=== PATIENT | female | born 1980 | race Caucasian/White ===

== ENCOUNTER → 2019-10-12 16:45 | Outpatient (BNVA) | payer MEDICARE, MEDICAID, SELFPAY | PROVIDERS: Family Provider Family Medicine; PCP Family Medicine; Visit Provider Social Worker | DX: F43.12 Post-traumatic stress disorder, chronic (principal); F70 Mild intellectual disabilities; F31.32 Bipolar disorder, current episode depressed, moderate; F41.1 Generalized anxiety disorder | CPT/HCPCS: 90834 ==

== ENCOUNTER → 2019-10-20 12:40 | Outpatient (BNVA) | payer MEDICARE, MEDICAID, SELFPAY | PROVIDERS: Family Provider Family Medicine; PCP Family Medicine; Visit Provider Nurse Practitioner Psychiatric/Mental Health | DX: F31.4 Bipolar disorder, current episode depressed, severe, without psychotic features (principal); F17.210 Nicotine dependence, cigarettes, uncomplicated; F43.12 Post-traumatic stress disorder, chronic; F70 Mild intellectual disabilities; G47.33 Obstructive sleep apnea (adult) (pediatric); F41.1 Generalized anxiety disorder | CPT/HCPCS: 99213 ==

== ENCOUNTER → 2019-11-02 14:58 | Outpatient (BNVA) | payer MEDICARE, MEDICAID, SELFPAY | PROVIDERS: Family Provider Family Medicine; PCP Family Medicine; Visit Provider Social Worker | DX: F43.12 Post-traumatic stress disorder, chronic (principal); F70 Mild intellectual disabilities; F31.32 Bipolar disorder, current episode depressed, moderate; F41.1 Generalized anxiety disorder | CPT/HCPCS: 90834 ==

== ENCOUNTER → 2019-11-16 16:45 | Outpatient (BNVA) | payer MEDICARE, MEDICAID, SELFPAY | PROVIDERS: Family Provider Family Medicine; PCP Family Medicine; Visit Provider Social Worker | DX: F41.1 Generalized anxiety disorder (principal); F31.32 Bipolar disorder, current episode depressed, moderate; F70 Mild intellectual disabilities; F43.12 Post-traumatic stress disorder, chronic | CPT/HCPCS: 90834 ==

== ENCOUNTER → 2019-12-14 15:44 | Outpatient (BNVA) | payer MEDICARE, MEDICAID, SELFPAY | PROVIDERS: Family Provider Family Medicine; PCP Family Medicine; Visit Provider Social Worker | DX: F43.12 Post-traumatic stress disorder, chronic (principal); F70 Mild intellectual disabilities; F31.4 Bipolar disorder, current episode depressed, severe, without psychotic features; F41.1 Generalized anxiety disorder | CPT/HCPCS: 90834 ==

== ENCOUNTER → 2019-12-29 15:18 | Outpatient (BNVA) | payer MEDICARE, MEDICAID, SELFPAY | PROVIDERS: Family Provider Family Medicine; PCP Family Medicine; Visit Provider Social Worker | DX: F41.1 Generalized anxiety disorder (principal); F70 Mild intellectual disabilities; F31.4 Bipolar disorder, current episode depressed, severe, without psychotic features; F43.12 Post-traumatic stress disorder, chronic | CPT/HCPCS: 90834 ==

== ENCOUNTER → 2020-01-12 08:23 | Outpatient (BNVA) | payer MEDICARE, MEDICAID, SELFPAY | PROVIDERS: Family Provider Family Medicine; PCP Family Medicine; Visit Provider Nurse Practitioner Psychiatric/Mental Health | DX: F31.4 Bipolar disorder, current episode depressed, severe, without psychotic features (principal); F43.12 Post-traumatic stress disorder, chronic; F70 Mild intellectual disabilities; G47.33 Obstructive sleep apnea (adult) (pediatric); F41.1 Generalized anxiety disorder; F17.210 Nicotine dependence, cigarettes, uncomplicated | CPT/HCPCS: 99213 ==

== ENCOUNTER → 2020-01-18 07:45 | Outpatient (BNVA) | payer MEDICARE, MEDICAID, SELFPAY | PROVIDERS: Family Provider Family Medicine; PCP Family Medicine; Visit Provider Social Worker | DX: F41.1 Generalized anxiety disorder (principal); F70 Mild intellectual disabilities; F31.4 Bipolar disorder, current episode depressed, severe, without psychotic features; F43.12 Post-traumatic stress disorder, chronic | CPT/HCPCS: 90834 ==

== ENCOUNTER → 2020-03-16 10:26 | Outpatient (BNVA) | payer MEDICARE, MEDICAID, SELFPAY | PROVIDERS: Family Provider Family Medicine; PCP Family Medicine; Visit Provider Social Worker | DX: F70 Mild intellectual disabilities (principal); F41.1 Generalized anxiety disorder; F43.12 Post-traumatic stress disorder, chronic; F31.4 Bipolar disorder, current episode depressed, severe, without psychotic features | CPT/HCPCS: 90834 ==

== ENCOUNTER → 2020-03-30 07:43 | Outpatient (BNVA) | payer MEDICARE, MEDICAID, SELFPAY | PROVIDERS: Family Provider Family Medicine; PCP Family Medicine; Visit Provider Nurse Practitioner Psychiatric/Mental Health | DX: F31.4 Bipolar disorder, current episode depressed, severe, without psychotic features (principal); F43.12 Post-traumatic stress disorder, chronic; F70 Mild intellectual disabilities; G47.33 Obstructive sleep apnea (adult) (pediatric); F41.1 Generalized anxiety disorder; F17.210 Nicotine dependence, cigarettes, uncomplicated | CPT/HCPCS: 99213 ==

== ENCOUNTER 2020-04-05 09:50 | Outpatient (CLI) | payer MEDICARE, MEDICAID, SELFPAY ==
--- NOTE | 2020-04-05 10:01 | MM_ITS ---
WS: [id number] BILATERAL DIGITAL SCREENING MAMMOGRAPHY WITH CAD CLINICAL INFORMATION: SCREENING HISTORY: Screening mammogram. No current complaints. COMPARISON: TECHNIQUE: Bilateral CC and MLO views. FINDINGS: The breasts are composed of heterogeneous fibroglandular density tissue, which can limit the detectio n of small underlying mass lesions. No suspicious mass, asymmetry, calcifications, or architectural d istortion. No evidence of malignancy. Stable bilateral well-circumscribed nodular densities and a few intramammary lymph nodes. MM/[id number] IMPRESSION: BI-RADS: 2-Benign FOLLOW UP: 1 Year Follow-up Recommend return to annual screening mammography.
== END 2020-04-05 09:51 | disposition home or self-care (01) ==
LOC: RADSHAW 09:59
PROVIDERS: PCP Family Medicine; Visit Provider Family Medicine
DX: Z12.31 Encounter for screening mammogram for malignant neoplasm of breast (principal)
CPT/HCPCS: 77067

== ENCOUNTER → 2020-06-01 07:33 | Outpatient (BNVA) | payer MEDICARE, MEDICAID, SELFPAY | PROVIDERS: PCP Family Medicine; Visit Provider Nurse Practitioner Psychiatric/Mental Health | DX: F31.4 Bipolar disorder, current episode depressed, severe, without psychotic features (principal); F43.12 Post-traumatic stress disorder, chronic; F70 Mild intellectual disabilities; G47.33 Obstructive sleep apnea (adult) (pediatric); F41.1 Generalized anxiety disorder | CPT/HCPCS: 99213 ==

== ENCOUNTER 2020-08-18 15:44 | Inpatient (IN) | payer MEDICARE, MEDICAID, SELFPAY ==
[2020-08-18 15:44] VITALS: BP 136/76; PULSE 72; RESP 16; TEMP 36.2; O2SAT 100; BMI 25.3
--- NOTE | 2020-08-18 16:15 | ED_ITS ---
HPI - Psych General: Chief Complaint: Psychiatric Symptoms Stated Complaint: SI Time Seen by Provider: 08/18/20 15:58 History of Present Illness: HPI Narrative: This patient is a 40-year-old female who lives in a supervised home with 2 roommates. She is here with a staff member today. Last night she made statements about watching to harm herself and had a pair of scissors hidden in her sleeve. She did cut her arm a small amount last night. The staff kept her on a 24-hour suicide watch but today she is continuing to voice suicidal thoughts. She is very sad. She has attempted suicide in the past by hanging herself. She denies any other medical history or recent illnesses. She has been compliant with her medications. MD complaint: suicidal ideation and feels depressed Onset (ago): unknown Duration: constant History of same: Yes Relieving factors: none Exacerbating factors: none Associated psychiatric symptoms: depression and suicidal ideation Associated symptoms: Reports depression and suicidal ideation Review of Systems General: Reports: 10 or more systems reviewed and unremarkable except in HPI and below Const: Denies: fever(s), chills, fatigue or malaise Card: Denies: chest pain Resp: Denies: dyspnea, productive cough or non-productive cough GI: Denies: nausea or vomiting : Denies: difficulty voiding Neuro: Denies: headache(s) Psych: Reports: depression, loss of interest and suicidal ideation [facility] ED PFSH: Medical History Bipolar disorder, current episode depressed, severe, without psychotic features Chronic post-traumatic stress disorder Cigarette nicotine dependence Generalized anxiety disorder Mild intellectual disabilities Obstructive sleep apnea Physical Exam Const: COMMON NORMALS: no acute distress, patient oriented x3, no limitations and alert GENERAL APPEARANCE: cooperative and comfortable HENMT: HEAD & SCALP: normal to inspection FACE & SINUS: normal facial exam Eye: GENERAL EYE: appearance normal, both eyes and all related structures Neck/C-Spine: COMMON NORMALS: supple, no meningeal signs and no JVD Chest: COMMONS NORMALS: normal inspection of the chest Resp: COMMON NORMALS: normal respiratory effort, No use of accessory muscles and clear to auscultation bilaterally AUSCULTATION: clear to auscultation bilaterally Cardio: COMMON NORMALS: no JVD, regular rate, regular rhythm and No murmurs present (Cardio) RATE: regular rate RHYTHM: regular rhythm GI: COMMON NORMALS: Normal to inspection, nondistended, normoactive bowel sounds present, Soft to palpation and non-tender INSPECTION: Yes normal to inspection AUSCULTATION: Yes normoactive bowel sounds PALPATION: Yes Soft to palpation Back/Pelvis: COMMON NORMALS: thoracic and lumbar spine normal to inspection Extremity: COMMON NORMALS: normal to inspection Neuro: COMMON NORMALS: patient oriented x3, moves all extremities, no focal motor deficits and no sensory deficits noted SENSORIUM/ORIENTATION: Yes alert MENINGEAL SIGNS: Yes no meningeal signs Psych: COMMON NORMALS: mental status grossly normal and cooperative ACTIVITY/MOTOR BEHAVIOR: Yes psychomotor slowing SPEECH: Yes minimal and Yes soft MOOD & AFFECT: Yes depressed mood Skin: COMMON NORMALS: no rashes or lesions noted and turgor normal GENERAL SKIN EXAM: no rashes or lesions noted and turgor normal MDM - Psych Lab Data: Labs: Lab Results 08/18/20 08/18/20 08/18/20 Range/Units 16:09 16:09 16:22 WBC 11.2 H (4.0-10.0) 10^3/ uL RBC 4.27 (4.1-5.3) 10^6/u L Hgb 10.6 L (11.5-15.3) g/dL Hct 36.0 L (37.0-47.0) % MCV 84.3 (81-99) fL MCH 24.8 L (28.0-34.0) pg MCHC 29.4 L (30.0-36.0) g/dL RDW 17.1 H (12.1-15.1) % Plt Count 483 H (130-400) 10^3/c mm MPV 10.6 H (7.4-10.4) fL Neut % (Auto) 58.8 % Lymph % (Auto) 31.0 % [place] % (Auto) 6.3 % Eos % (Auto) 2.9 % Baso % (Auto) 0.8 % Neut # (Auto) 6.59 (1.8-7.7) 10^3/u L Lymph # (Auto) 3.5 (0.8-4.8) 10^3/u L [place] # (Auto) 0.7 (0.2-0.9) 10^3/u L Eos # (Auto) 0.3 (0.0-0.8) 10^3/u L Baso # (Auto) 0.1 (0.0-0.1) 10^3/u L Nucleated RBC % (a uto) 0 % Nucleated RBCs # 0.0 /100WBC Sodium (136-145) mmol/L Potassium (3.5-5.1) mmol/L Chloride (98-107) mmol/L Carbon Dioxide (22-29) mmol/L Anion Gap (5-19) BUN (6-20) mg/dL Creatinine (0.5-0.9) mg/dL GFR Calculation (90-130) mL/min Glucose (65-115) mg/dL Calculated Osmolal ity (285-295) mOsm/k g Calcium (8.5-10.5) mg/dL Total Bilirubin (0.15-1.2) mg/dL AST (0-32) U/L ALT (0-33) U/L Alkaline Phosphata se (35-105) IU/L Total Protein (6.6-8.7) g/dL Albumin (3.5-5.2) g/dL Globulin (1.3-4.6) g/dL HCG, Qual Negative (Negative) Salicylates (3-10) mg/dL Urine Opiates Scre en Negative (Negative) ng/mL Acetaminophen (10-30) ug/mL Ur Barbiturates Sc reen Negative (Negative) ng/mL Ur Phencyclidine S crn Negative (Negative) ng/mL Ur Amphetamines Sc reen Negative (Negative) ng/mL U Benzodiazepines Scrn Negative (Negative) ng/mL Urine Cocaine Scre en Negative (Negative) ng/mL U Marijuana (THC) Screen Negative (Negative) ng/mL Ethyl Alcohol (0-10) mg/dL 08/18/ Range/Units 16:22 WBC (4.0-10.0) 10^3/ uL RBC (4.1-5.3) 10^6/u L Hgb (11.5-15.3) g/dL Hct (37.0-47.0) % MCV (81-99) fL MCH (28.0-34.0) pg MCHC (30.0-36.0) g/dL RDW (12.1-15.1) % Plt Count (130-400) 10^3/c mm MPV (7.4-10.4) fL Neut % (Auto) % Lymph % (Auto) % [place] % (Auto) % Eos % (Auto) % Baso % (Auto) % Neut # (Auto) (1.8-7.7) 10^3/u L Lymph # (Auto) (0.8-4.8) 10^3/u L [place] # (Auto) (0.2-0.9) 10^3/u L Eos # (Auto) (0.0-0.8) 10^3/u L Baso # (Auto) (0.0-0.1) 10^3/u L Nucleated RBC % (a uto) % Nucleated RBCs # /100WBC Sodium 136 (136-145) mmol/L Potassium 3.8 (3.5-5.1) mmol/L Chloride 104 (98-107) mmol/L Carbon Dioxide 24 (22-29) mmol/L Anion Gap 11.8 (5-19) BUN 8 (6-20) mg/dL Creatinine 0.8 (0.5-0.9) mg/dL GFR Calculation 78.7 L (90-130) mL/min Glucose 103 (65-115) mg/dL Calculated Osmolal ity 281 L (285-295) mOsm/k g Calcium 9.4 (8.5-10.5) mg/dL Total Bilirubin 0.2 (0.15-1.2) mg/dL AST 14 (0-32) U/L ALT 11 (0-33) U/L Alkaline Phosphata se 181 H (35-105) IU/L Total Protein 6.8 (6.6-8.7) g/dL Albumin 4.4 (3.5-5.2) g/dL Globulin 2.4 (1.3-4.6) g/dL HCG, Qual (Negative) Salicylates 0.7 L (3-10) mg/dL Urine Opiates Scre en (Negative) ng/mL Acetaminophen < 5.0 L (10-30) ug/mL Ur Barbiturates Sc reen (Negative) ng/mL Ur Phencyclidine S crn (Negative) ng/mL Ur Amphetamines Sc reen (Negative) ng/mL U Benzodiazepines Scrn (Negative) ng/mL Urine Cocaine Scre en (Negative) ng/mL U Marijuana (THC) Screen (Negative) ng/mL Ethyl Alcohol < 10 (0-10) mg/dL Discharge Plan Discharge Admit Provider: Bladimir Marie Condition: Stable Coding Level of Care Code ED Senior Director Of Strategy for [employer] Fwd Exam Comprehensive
[2020-08-18] MEDS: LORazepam 1 mg Tablet PO (16:35)
[2020-08-18 16:38] LABS: Basophils # 0.1 10^3/uL (0.0-0.1); Basophils % 0.8 %; Eosinophils # 0.3 10^3/uL (0.0-0.8); Eosinophils % 2.9 %; Hemoglobin 10.6 g/dL (11.5-15.3); Lymphocytes # 3.5 10^3/uL (0.8-4.8); Mean Corpuscular HGB Conc 29.4 g/dL (30.0-36.0); Mean Corpuscular Hemoglobin 24.8 pg (28.0-34.0); Mean Corpuscular Volume 84.3 fL (81-99); Mean Platelet Volume 10.6 fL (7.4-10.4); Monocytes # 0.7 10^3/uL (0.2-0.9); Monocytes % 6.3 %; Neutrophils # 6.59 10^3/uL (1.8-7.7); Neutrophils % 58.8 %; Nucleated Red Blood Cells % 0 %; Platelet Count 483 10^3/cmm (130-400); Red Blood Count 4.27 10^6/uL (4.1-5.3); Red Cell Distribution Width 17.1 % (12.1-15.1); White Blood Count 11.2 10^3/uL (4.0-10.0)
[2020-08-18 16:49] LABS: Alanine Aminotransferase 11 U/L (0-33); Albumin Level 4.4 g/dL (3.5-5.2); Alkaline Phosphatase 181 IU/L (35-105); Anion Gap 11.8 (5-19); Aspartate Amino Transferase 14 U/L (0-32); Blood Urea Nitrogen 8 mg/dL (6-20); Calcium 9.4 mg/dL (8.5-10.5); Carbon Dioxide 24 mmol/L (22-29); Chloride 104 mmol/L (98-107); Globulin 2.4 g/dL (1.3-4.6); Glomerular Filtration Rate 78.7 mL/min (90-130); Glucose 103 mg/dL (65-115); Osmolality Calculated 281 mOsm/kg (285-295); Potassium 3.8 mmol/L (3.5-5.1); Salicylate 0.7 mg/dL (3-10); Sodium 136 mmol/L (136-145); Total Bilirubin 0.2 mg/dL (0.15-1.2); Total Protein 6.8 g/dL (6.6-8.7)
[2020-08-18 16:52] LABS: Acetaminophen < 5.0 ug/mL (10-30); Alcohol Level < 10 mg/dL (0-10)
[2020-08-18 16:58] LABS: Amphetamines Screen Urine Negative (Negative); Barbiturates Screen Urine Negative (Negative); Benzodiazepines Screen Urine Negative (Negative); Cocaine Screen Urine Negative (Negative); Opiate Screen Urine Negative (Negative); PCP Screen Urine Negative (Negative); THC Screen Urine Negative (Negative)
[2020-08-18 17:07] LABS: HCG Qualitative Urine. Negative (Negative)
--- NOTE | 2020-08-18 19:00 | PC.NURSE ---
Pt ambulating in room and refuses to wear mask. Attempt to review with pt the hospital policy, he states I don't have too . Notified Charge nurse
--- NOTE | 2020-08-18 19:20 | PC.NURSE ---
Caregiver at bedside. Pt aware of admission, appears to be resting with eyes closed.
[2020-08-18 19:50] VITALS: BP 128/77; PULSE 69; RESP 18; TEMP 37.1; O2SAT 97
[2020-08-18 20:28] VITALS: BP 132/77; PULSE 67; RESP 18; TEMP 36.7; O2SAT 99
[2020-08-18 20:55] VITALS: BP 132/77; PULSE 67; RESP 18; TEMP 36.7; O2SAT 99
--- NOTE | 2020-08-18 21:13 | PC.NURSE ---
Skin assessment revealed surgical scars both knees. The patient has a 1/4 inch self inflicted, superficial cut to anterior left arm.
[2020-08-18] MEDS: hyDROXYzine 25 mg Capsule 50 MG PO (21:26)
[2020-08-18] MEDS: trazodone 50 mg Tablet PO (21:27)
[2020-08-18 23:12] LABS: Lithium 0.7 mmol/L (0.6-1.2)
[2020-08-19 06:00] VITALS: BP 105/65; PULSE 74; RESP 15; TEMP 36.4; O2SAT 98
[2020-08-19] MEDS: loratadine 10 mg Tablet PO (08:03)
[2020-08-19] MEDS: pantoprazole DR 40 mg Tablet PO (08:03)
[2020-08-19] MEDS: lithium carbonate 300 mg Capsule PO (08:03)
[2020-08-19] MEDS: calcium carb-vit d 500mg-200unit 1 Tablet 1 EACH PO (09:11)
[2020-08-19] MEDS: sertraline 100 mg Tablet 200 MG PO (09:12)
[2020-08-19] MEDS: nicotine 21 mg Patch 1 PATCH TRANSDERMA (09:13)
[2020-08-19 13:34] VITALS: BP 107/57; PULSE 79; RESP 18; TEMP 37.2; O2SAT 94
--- NOTE | 2020-08-19 14:34 | PM.NHP ---
Providers/Chief Complaint Admitting Physician: Bladimir Marie MD Primary Care Provider: Kendrick Dillon Chief Complaint: SI HPI NPU History of Present Illness Celia Ghosh is a 40 year old female who presented to the emergency room the following report: Chief Complaint: Psychiatric Symptoms Stated Complaint: SI Time Seen by Provider: 08/18/20 15:58 History of Present Illness: HPI Narrative: This patient is a 40-year-old female who lives in a supervised home with 2 roommates. She is here with a staff member today. Last night she made statements about watching to harm herself and had a pair of scissors hidden in her sleeve. She did cut her arm a small amount last night. The staff kept her on a 24-hour suicide watch but today she is continuing to voice suicidal thoughts. She is very sad. She has attempted suicide in the past by hanging herself. She denies any other medical history or recent illnesses. She has been compliant with her medications. MD complaint: suicidal ideation and feels depressed Onset (ago): unknown Duration: constant History of same: Yes Relieving factors: none Exacerbating factors: none Associated psychiatric symptoms: depression and suicidal ideation Associated symptoms: Reports depression and suicidal ideation. She was admitted to the neuropsychiatric in the fourth and treatment of those issues. Celia presents today well-known to the [facility] system through outpatient treatment going back to 2008 at [facility] the most recent med management visit in March and recent therapy follow-ups in late June. She endorsed starting inpatient hospitalizations after in her childhood and she has had 7 or 8 here at [facility]. She reports that she cannot identify with the nidus of her outburst/behaviors were yesterday she does knows that she started feeling internal angst/pain and she wanted to have a physical manifestation of the pain. So according to her the behavior with the scissors was not a suicide attempt and she denies suicidality she reports feeling a drive to self-harm. She has been living at the [facility] for a long time. Her last visitation here was in 2016 and she was living there then. She also has had hospitalizations at [facility]. She was smoking about a pack of cigarettes a day. Denies regular alcohol marijuana or any other illicit drugs. Denies ever going to a rehab or having a DUI. She endorsed things getting crazy. That she was having racing thoughts. That her thoughts were not making sense. And that when she had the thought to create some physical pain and got the scissors. She has a history of SIB. Is unclear if she has any actual suicide attempts based on her description of past suicide attempt in 2013. We agreed to review her medications. There were no significant issues raised by Celia at her 06/01 med management visit, or her 07/27/2020 counseling session. Psychiatric history: As above. This huizar her at least 10th or more hospitalization. She lives in [facility] and gets her treatment at [facility]. Substance abuse history: As above. Family history: She was adopted and denies having a great memory but which she does not know is that her mother had significant problems with drugs and likely mental health issues. Developmental history: She reports that her mom did drugs during her and she was born premature. She reports that she did have developmental delays. She reports that when she went to school she did need speech therapy, learning support emotional support and special education services. Psychosocial history: She is not sure of her mother and father were together when she was born exactly She reports being adopted when she was 4, and she was in the foster care system prior to that and her memories of her youth her fairly limited. She does report being adopted to a family with 2 boys that were also adopted and her half sister. She reports that her childhood was okay. She has no recollection of any emotional physical or sexual abuse. She graduated from high school. She endorses being a heterosexual and her longest relationship was 3 years. She never been , she is never had children, she is never been in the , and denies any significant protestant belief system. She works at [employer] in [place]. She lives in [facility]. Legal history: She denies any history of senior care or legal peril. Medical history: She endorses having GERD and sleep apnea Meds NPU Home Medications Medication Instructions Recorded Confirmed Last Taken Type bimatoprost 0.01 % eye drops 1 drop OPHTHALMIC (EYE) BEDTIME 10/20/19 08/18/20 08/17/20 History bismuth subsalicylate 262 mg/15 mL 524 mg PO ONCE PRN 10/20/19 08/18/20 Unknown History oral suspension calcium carbonate 500 mg calcium 500 mg PO DAILY tab 10/20/19 08/18/20 08/18/20 History (1,250 mg) tablet carbamide peroxide 6.5 % ear drops 10 drop EAR-BOTH BID PRN ml 10/20/19 08/18/20 Unknown History dextromethorphan polistirex 30 10 ml PO QID PRN 10/20/19 08/18/20 Unknown History mg/5 mL oral susp ext.release 12hr loratadine 10 mg tablet 10 mg PO QDAY 10/20/19 08/18/20 08/18/20 History omeprazole 40 mg capsule,delayed 40 mg PO DAILY 10/20/19 08/18/20 08/17/20 History release piroxicam 20 mg capsule 20 mg PO QDAY PRN 10/20/19 08/18/20 Unknown History clonazepam 0.5 mg tablet 0.5 mg PO DAILY PRN #30 tab 01/13/20 08/18/20 Unknown Rx lithium carbonate 300 mg tablet 900 mg PO DIRECTED #270 tab 06/01/20 08/18/20 08/18/20 Rx Abilify 10 mg PO BEDTIME 08/18/20 08/18/20 08/17/20 History Lamictal 200 mg PO BEDTIME 08/18/20 08/18/20 08/17/20 History Zoloft 200 mg PO DAILY 08/18/20 08/18/20 08/18/20 History acetaminophen [Tylenol] 325 mg PO Q4H PRN 08/18/20 08/18/20 Unknown History cyproheptadine 4 mg PO BEDTIME 08/18/20 08/18/20 08/17/20 History omeprazole 20 mg PO DAILY 08/18/20 08/19/20 08/18/20 History brimonidine-timolol [Combigan] 1 drp OPHTHALMIC (EYE) BID 08/19/20 08/19/20 08/19/20 History Allergies Allergy/AdvReac Type Severity Reaction Status Date / Time ziprasidone [From Geodon] Allergy Unknown Unknown Verified 08/19/20 20:33 divalproex sodium Allergy Unknown Verified 08/18/20 16:37 [From Depakote] PFSH NPU PFS: Medical History Bipolar disorder, current episode depressed, severe, without psychotic features Chronic post-traumatic stress disorder Cigarette nicotine dependence Generalized anxiety disorder Mild intellectual disabilities Obstructive sleep apnea Mental Status Exam MSE Comments: This is a short overweight white female in hospital scrubs with adequate grooming and eye contact. No abnormal movements except for sicca psychomotor retardation. Cooperative with exam in mild distress. Speech was decreased rate and volume. Mood described as depressed affect subdued. Thought process organized. Thought content: Patient denied suicidal or homicidal ideations, there were no delusions reported or noted, she denied any auditory or visual donations. Attention and concentration were intact and memory appeared mostly reliable but none were formally tested. She is alert and oriented x3. Insight and judgment are impaired, impulse control is impaired, intellectual ability is impaired. Vitals/I&O/Wt Last Vital Signs Temp 98.9 F 08/19/20 22:00 Pulse 78 08/19/20 22:00 Resp 17 08/19/20 22:00 BP 112/79 08/19/20 22:00 Pulse Ox 97 08/19/20 22:00 Weight last 48 hrs Weight 53.07 kg Data NPU : 08/18/20 16:22 08/18/20 16:22 A&P Assessment and plan (1) Generalized anxiety disorder: Status: Chronic (2) Mild intellectual disabilities: Status: Chronic (3) Chronic post-traumatic stress disorder: Status: Chronic (4) Bipolar disorder, current episode depressed, severe, without psychotic features: Status: Chronic (5) Cigarette nicotine dependence: Status: Chronic Qualifiers: Substance use status: uncomplicated Qualified Code(s): F17.210 - Nicotine dependence, cigarettes, uncomplicated (6) Obstructive sleep apnea: Status: Acute Additional A&P Information This is a 40-year-old white female with a long history of trauma, bipolar disorder, anxiety and possible cluster B traits who presents after an episode of SIB. 1. Continue current medication. We will increase her lithium to 6 amenability if the lithium level comes back in the morning as in the range it was most recently at 0.7. If it is near to the previous range of 0.9 then we will look to raise the Lamictal to adding a morning dose. 2. Continue every 15 minute checks for safety. 3. Encourage individual, group and milieu therapy. 4. We will work with guardian to make appropriate changes. Involuntary Hold Information 96 Hour Hold: 96 Hour Involuntary Admission: No Attestations NPU Medical Necessity Statement*: Inpatient hospitalization is medically necessary and the clinically appropriate intervention at this time. We will monitor medications and make changes as indicated. She will be in the hospital for over 2 midnights. Likely length of stay 2-4 days. Coding Level of Care Code Acute Tool And Die Repair for g Fwd Diagnoses Generalized anxiety disorder F41.1 Mild intellectual disabilities F70 Chronic post-traumatic stress disorder F43.12 Bipolar disorder, current episode depressed, severe, without psychotic features F31.4 Cigarette nicotine dependence F17.210 Substance use status: uncomplicated Obstructive sleep apnea G47.33
[2020-08-19] MEDS: ARIPiprazole 10 mg Tablet PO (21:30)
[2020-08-19] MEDS: lamoTRIgine 100 mg Tablet 200 MG PO (21:30)
[2020-08-19] MEDS: lithium carbonate 300 mg Capsule 600 MG PO (21:30)
[2020-08-19 22:00] VITALS: BP 112/79; PULSE 78; RESP 17; TEMP 37.2; O2SAT 97
[2020-08-19] MEDS: BRINZOLAMIDE 1% 1 DROP EYE-BOTH (22:07)
[2020-08-19] MEDS: NON-FORMULARY MEDICATION (Brimonidine-Timolol [Combigan] 0.2-0.5 % Drops) 1 EACH EYE-BOTH (22:20)
[2020-08-20 06:00] VITALS: BP 105/69; PULSE 79; RESP 16; TEMP 37; O2SAT 96
[2020-08-20] MEDS: NON-FORMULARY MEDICATION (Brimonidine-Timolol [Combigan] 0.2-0.5 % Drops) 1 EACH EYE-BOTH ×2 (08:01→18:14)
[2020-08-20] MEDS: calcium carb-vit d 500mg-200unit 1 Tablet 1 EACH PO (08:01)
[2020-08-20] MEDS: loratadine 10 mg Tablet PO (08:01)
[2020-08-20] MEDS: sertraline 100 mg Tablet 200 MG PO (08:01)
[2020-08-20] MEDS: pantoprazole DR 40 mg Tablet PO (08:01)
[2020-08-20] MEDS: BRINZOLAMIDE 1% 1 DROP EYE-BOTH ×2 (08:02→18:14)
[2020-08-20 10:15] LABS: Lithium 0.8 mmol/L (0.6-1.2)
[2020-08-20] MEDS: lithium carbonate 300 mg Capsule 600 MG PO ×2 (10:20→20:51)
--- NOTE | 2020-08-20 11:28 | PC.NURSE ---
PT NOTE; PER DR. JOHNSON REQUEST NOTIFIED CLIENTS GUARDIAN SHIRLEY COLES OF CLIENTS PLANNED DISCHARGE ON SATURDAY. SPOKE WITH HIM ABOUT CHANGES IN CLIENTS CARE (MED ADJUSTMENTS). INFORMED HIM THAT CLIENT HAS BEEN STABLE ON THE UNIT AND NO LONGER ENDORSES SUICIDAL THOUGHTS. ALSO INFORMED HIM THAT I HAVE SPOKEN WITH CLIENTS ISL AND THEY ARE IN AGREEMENT WITH THIS PLAN. GUARDIAN STATES THAT HE IS IN AGREEMENT WITH THIS PLAN WELL.
[2020-08-20 13:29] VITALS: BP 113/77; PULSE 78; RESP 18; TEMP 37.1
--- NOTE | 2020-08-20 15:11 | P.PN_ITS ---
Subjective NPU Subjective: Interval history: Celia presents today reporting that she is feeling better and denying any major issues. On the top of her issues of anxiety and concern is worries about not getting back home so that she can be at work as scheduled on Saturday. The treatment team reached out to her providers to talk about the possibility of discharge tomorrow versus early Saturday morning with tomorrow being her desire discharge and her dakota for safety. She was eating fine and sleeping better and tolerating the medication change. Mental Status Exam MSE Comments: This is a short overweight white female in hospital scrubs with adequate grooming and eye contact. No abnormal movements except for mild psychomotor retardation. Cooperative with exam in no acute distress. Speech was decreased rate and volume. Mood described as better, affect subdued. Thought process organized. Thought content: Patient denied suicidal or homicidal ideations, there were no delusions reported or noted, she denied any auditory or visual donations. Attention and concentration were intact and memory appeared mostly reliable but none were formally tested. She is alert and oriented x3. Insight and judgment are limited, but improving, impulse control is limited, intellectual ability is impaired. Vitals/I&O/Wt Last Vital Signs Temp 98.3 F 08/20/20 20:59 Pulse 76 08/20/20 20:59 Resp 15 08/20/20 20:59 BP 106/73 08/20/20 20:59 Pulse Ox 96 08/20/20 20:59 Data NPU : 08/18/20 16:22 08/18/20 16:22 A&P Additional A&P Information (1) Generalized anxiety disorder: (2) Mild intellectual disabilities: (3) Chronic post-traumatic stress disorder: (4) Bipolar disorder, current episode depressed, severe, without psychotic features: (5) Cigarette nicotine dependence: (6) Obstructive sleep apnea: This is a 40-year-old white female with a long history of trauma, bipolar disorder, anxiety and possible cluster B traits who presents after an episode of SIB. 1. Continue current medication. Patient is tolerating the increase to 600 mg p.o. twice daily of her lithium. 2. Continue every 15 minute checks for safety. 3. Encourage individual, group and milieu therapy. 4. We will work with guardian to make appropriate changes. 5. Tentative plan for discharge tomorrow. Involuntary Hold Information 96 Hour Hold: 96 Hour Involuntary Admission: No Attestations NPU Medical Necessity Statement*: Inpatient hospitalization is medically necessary and the clinically appropriate intervention at this time. We will monitor medications and make changes as indicated. Likely length of stay 1-3 days. Coding Level of Care Code Acute Machine Setup Operator for Tonia Robbins
[2020-08-20] MEDS: lamoTRIgine 100 mg Tablet 200 MG PO (20:50)
[2020-08-20] MEDS: ARIPiprazole 10 mg Tablet PO (20:50)
[2020-08-20 20:59] VITALS: BP 106/73; PULSE 76; RESP 15; TEMP 36.8; O2SAT 96
[2020-08-21 06:00] VITALS: BP 115/72; PULSE 89; RESP 16; TEMP 36.8; O2SAT 97
[2020-08-21] MEDS: lithium carbonate 300 mg Capsule 600 MG PO (08:14)
[2020-08-21] MEDS: pantoprazole DR 40 mg Tablet PO (08:14)
[2020-08-21] MEDS: loratadine 10 mg Tablet PO (08:14)
[2020-08-21] MEDS: calcium carb-vit d 500mg-200unit 1 Tablet 1 EACH PO (08:14)
[2020-08-21] MEDS: sertraline 100 mg Tablet 200 MG PO (08:15)
[2020-08-21] MEDS: BRINZOLAMIDE 1% 1 DROP EYE-BOTH (08:15)
[2020-08-21] MEDS: NON-FORMULARY MEDICATION (Brimonidine-Timolol [Combigan] 0.2-0.5 % Drops) 1 EACH EYE-BOTH (08:15)
--- NOTE | 2020-08-21 10:31 | PM.NDC ---
Diagnoses at Discharge Discharge Diagnosis (1) Generalized anxiety disorder: Status: Chronic (2) Mild intellectual disabilities: Status: Chronic (3) Chronic post-traumatic stress disorder: Status: Chronic (4) Bipolar disorder, current episode depressed, severe, without psychotic features: Status: Chronic (5) Cigarette nicotine dependence: Status: Chronic Qualifiers: Substance use status: uncomplicated Qualified Code(s): F17.210 - Nicotine dependence, cigarettes, uncomplicated (6) Obstructive sleep apnea: Status: Chronic Reason for Visit Reason for Visit: SI Brief History: History of Present Illness Celia Ghosh is a 40 year old female who presented to the emergency room the following report: Chief Complaint: Psychiatric Symptoms Stated Complaint: SI Time Seen by Provider: 08/18/20 15:58 History of Present Illness: HPI Narrative: This patient is a 40-year-old female who lives in a supervised home with 2 roommates. She is here with a staff member today. Last night she made statements about watching to harm herself and had a pair of scissors hidden in her sleeve. She did cut her arm a small amount last night. The staff kept her on a 24-hour suicide watch but today she is continuing to voice suicidal thoughts. She is very sad. She has attempted suicide in the past by hanging herself. She denies any other medical history or recent illnesses. She has been compliant with her medications. MD complaint: suicidal ideation and feels depressed Onset (ago): unknown Duration: constant History of same: Yes Relieving factors: none Exacerbating factors: none Associated psychiatric symptoms: depression and suicidal ideation Associated symptoms: Reports depression and suicidal ideation. She was admitted to the neuropsychiatric for definitive treatment of those issues. Celia presents today well-known to the [facility] through outpatient treatment going back to 2008 at [facility] the most recent med management visit in March and recent therapy follow-ups in late June. She endorsed starting inpatient hospitalizations after in her childhood and she has had 7 or 8 here at [facility]. She reports that she cannot identify with the nidus of her outburst/behaviors were yesterday she does knows that she started feeling internal angst/pain and she wanted to have a physical manifestation of the pain. So according to her the behavior with the scissors was not a suicide attempt and she denies suicidality she reports feeling a drive to self-harm. She has [facility] living [facility] a [facility] time. Her last visitation here was in 2017 and she was living there then. She also has had hospitalizations at [facility]. She was smoking about a pack of cigarettes a day. Denies regular alcohol marijuana or any other illicit drugs. Denies ever going to a rehab or having a DUI. She endorsed things getting crazy. That she was having racing thoughts. That her thoughts were not making sense. And that when she had the thought to create some physical pain and got the scissors. She has a history of SIB. Is unclear if she has any actual suicide attempts based on her description of past suicide attempt in 2013. We agreed to review her medications. There were no significant issues raised by Celia at her 06/01/2020 med management visit, or her 07/27/2020 counseling session. Psychiatric history: As above. This huizar her at least 10th or more hospitalization. She lives in [facility] and gets her treatment at [facility]. Substance abuse history: As above. Family history: She was adopted and denies having a great memory but which she does not know is that her mother had significant problems with drugs and likely mental health issues. Developmental history: She reports that her mom did drugs during her and she was born premature. She reports that she did have developmental delays. She reports that when she went to school she did need speech therapy, learning support emotional support and special education services. Psychosocial history: She is not sure of her mother and father were together when she was born exactly She reports being adopted when she was 4, and she was in the foster care system prior to that and her memories of her youth her fairly limited. She does report being adopted to a family with 2 boys that were also adopted and her half sister. She reports that her childhood was okay. She has no recollection of any emotional physical or sexual abuse. She graduated from high school. She endorses being a heterosexual and her longest relationship was 3 years. She never been , she is never had children, she is never been in the , and denies any significant pentecostal belief system. She works at [employer] in [place]. She lives in [facility]. Legal history: She denies any history of fpc or legal peril. Medical history: She endorses having GERD and sleep apnea Hospital Course Hospital Course Celia presented to the emergency department after cutting herself and having some very dramatic behaviors back at her group residential setting. She had endorsed suicidal thinking and had some [id number] behaviors. She was admitted to the neuropsychiatric unit for definitive treatment of those issues. On the unit she quickly acclimated to the individual, group and milieu therapies provided. Ringsted level was low normal and her lithium dose was increased to 600 mg p.o. twice daily. She tolerated that medication well and had no aggressive or inappropriate behaviors on the unit. She was able to contract for safety prior to discharge. During the hospitalization she had routine laboratory studies which were within normal limits except for few outliers. Additionally there was a general medical evaluation which was also within normal limits and revealed no new acute processes. * At the time of discharge she was absent lethality or psychosis. Her mood and anxiety were well managed. She endorsed a plan to follow-up with the aftercare recommendations of the treatment team. She was evaluated and deemed to be absent current lethality and had obtained the maximum benefit from an inpatient hospitalization, so she was discharged. Involuntary Hold Information 96 Hour Hold: 96 Hour Involuntary Admission: No Mental Status Exam MSE Comments: This is a short overweight white female in hospital scrubs with adequate grooming and eye contact. No abnormal movements except for mild psychomotor retardation. Cooperative with exam in no acute distress. Speech was decreased rate and volume. Mood described as pretty good, affect subdued. Thought process organized. Thought content: Patient denied suicidal or homicidal ideations, there were no delusions reported or noted, she denied any auditory or visual donations. Attention and concentration were intact and memory appeared mostly reliable but none were formally tested. She is alert and oriented x3. Insight and judgment are limited, but improving, impulse control is limited, intellectual ability is impaired. Discharge Data Vitals: Last Vital Signs Temp 98.3 F 08/21/20 06:00 Pulse 89 08/21/20 06:00 Resp 16 08/21/20 06:00 BP 115/72 08/21/20 06:00 Pulse Ox 97 08/21/20 06:00 Discharge Plan Discharge Patient Disposition: Home Condition: Stable Prescriptions: New lithium carbonate 300 mg Capsule 600 mg PO Q12H 30 Days Qty: 120 RF: 1 Continued bismuth subsalicylate [Pepto-Bismol] 262 mg/15 mL suspension 524 mg PO ONCE PRN (Reason: diarrhea) RF: 0 loratadine [Allergy Relief (loratadine)] 10 mg tablet 10 mg PO QDAY RF: 0 calcium carbonate [Oyster Shell Calcium] 500 mg calcium (1,250 mg) tablet 500 mg PO DAILY RF: 0 omeprazole 40 mg capsule,delayed release(DR/EC) 40 mg PO DAILY RF: 0 Lumigan 0.01 % drops 1 drop ophthalmic (eye) BEDTIME RF: 0 piroxicam 20 mg capsule 20 mg PO QDAY PRN (Reason: HEEL PAIN) RF: 0 dextromethorphan polistirex [Robitussin ER] 30 mg/5 mL suspension,extended rel 12 hr 10 ml PO QID PRN (Reason: Cough) RF: 0 carbamide peroxide [Debrox] 6.5 % drops 10 drop EAR-BOTH BID PRN (Reason: EARWAX REMOVAL) RF: 0 clonazepam [Klonopin] 0.5 mg tablet 0.5 mg PO DAILY PRN (Reason: anxiety) Qty: 30 RF: 3 Tylenol 325 mg Tablet 325 mg PO Q4H PRN (Reason: Pain) RF: 0 omeprazole 20 mg capsule,delayed release(DR/EC) 20 mg PO DAILY RF: 0 Combigan 0.2-0.5 % Drops 1 drp ophthalmic (eye) BID RF: 0 Discontinued lithium carbonate 300 mg tablet 900 mg PO DIRECTED Qty: 270 RF: 2 No Action Abilify 10 mg tablet 10 mg PO BEDTIME Qty: 90 RF: 2 cyproheptadine 4 mg tablet 4 mg PO BEDTIME Qty: 90 RF: 2 Lamictal 200 mg tablet 200 mg PO BEDTIME Qty: 90 RF: 2 Zoloft 100 mg tablet 200 mg PO .morning Qty: 180 RF: 2 Discharge Orders: Discharge Order (Routine); Ordered 08/21/20 Ordered By: Bladimir Marie Referrals: Julia Valenzuela PMMIKE [Staff Physician] - 08/31/20 8:15 am Geri Anton [Therapist] - 08/24/20 3:00 pm Discharge Diet: Regular Discharge Activity: Resume usual activity Patient Instructions: Ringsted (By mouth), Anxiety (DC) Discharge Attestations NPU Time Spent in Discharge Care*: less than 30 min Specific Discharge Activities: Specific discharge activities: educating patient, discussing with oil field caser/social workers/dc planners, documenting/other paperwork and evaluating patient/reviewing data Coding Level of Care Code Acute [facility] Fwd Diagnoses Generalized anxiety disorder F41.1 Mild intellectual disabilities F70 Chronic post-traumatic stress disorder F43.12 Bipolar disorder, current episode depressed, severe, without psychotic features F31.4 Cigarette nicotine dependence F17.210 Substance use status: uncomplicated Obstructive sleep apnea G47.33
[2020-08-21 10:47] VITALS: BP 115/72; PULSE 89; RESP 16; TEMP 36.8; O2SAT 97
[2020-08-21 10:54] VITALS: BP 115/72; PULSE 89; RESP 16; TEMP 36.8; O2SAT 97
--- NOTE | 2020-08-23 14:16 | PC.RESP ---
SMOKING CESSATION INFORMATION SENT TO PATIENT.
== END 2020-08-21 11:39 | disposition home or self-care (01) | DRG 885 ==
LOC: ER 16:18 → NP 19:49
PROVIDERS: Emergency Medicine; Admitting Provider Psychiatry & Neurology Psychiatry; Emergency Provider Emergency Medicine; PCP Family Medicine; Visit Provider Psychiatry & Neurology Psychiatry
DX: F31.4 Bipolar disorder, current episode depressed, severe, without psychotic features (principal); R45.851 Suicidal ideations; F17.210 Nicotine dependence, cigarettes, uncomplicated; F43.12 Post-traumatic stress disorder, chronic; F41.1 Generalized anxiety disorder; F70 Mild intellectual disabilities; G47.33 Obstructive sleep apnea (adult) (pediatric); F60.89 Other specific personality disorders
CPT/HCPCS: 12345; 36415; 80053; 80178; 80306; 80307; 81025; 85025; 99284

== ENCOUNTER → 2020-08-31 07:31 | Outpatient (BNVA) | payer MEDICARE, MEDICAID, SELFPAY | PROVIDERS: PCP Family Medicine; Visit Provider Nurse Practitioner Psychiatric/Mental Health | DX: F31.4 Bipolar disorder, current episode depressed, severe, without psychotic features (principal); F43.12 Post-traumatic stress disorder, chronic; F70 Mild intellectual disabilities; F17.210 Nicotine dependence, cigarettes, uncomplicated; G47.33 Obstructive sleep apnea (adult) (pediatric); Z79.899 Other long term (current) drug therapy; F41.1 Generalized anxiety disorder | CPT/HCPCS: 99213 ==

== ENCOUNTER 2020-10-27 09:33 | Outpatient (RCR) | payer MEDICARE, MEDICAID, SELFPAY | END 2020-10-30 23:59 | disposition home or self-care (01) | LOC: SST 09:33 | PROVIDERS: PCP Family Medicine; Referring Provider Family Medicine; Visit Provider Family Medicine | DX: R13.10 Dysphagia, unspecified (principal) | CPT/HCPCS: 92610 ==

== ENCOUNTER → 2020-11-25 07:42 | Outpatient (BNVA) | payer MEDICARE, MEDICAID, SELFPAY | PROVIDERS: PCP Family Medicine; Visit Provider Nurse Practitioner Psychiatric/Mental Health | DX: F31.4 Bipolar disorder, current episode depressed, severe, without psychotic features (principal); F43.12 Post-traumatic stress disorder, chronic; F70 Mild intellectual disabilities; F17.210 Nicotine dependence, cigarettes, uncomplicated; G47.33 Obstructive sleep apnea (adult) (pediatric); F41.1 Generalized anxiety disorder | CPT/HCPCS: 99214 ==

== ENCOUNTER → 2020-12-19 07:39 | Outpatient (BNVA) | payer MEDICARE, MEDICAID, SELFPAY | PROVIDERS: PCP Family Medicine; Visit Provider Nurse Practitioner Psychiatric/Mental Health | DX: F31.4 Bipolar disorder, current episode depressed, severe, without psychotic features (principal); F43.12 Post-traumatic stress disorder, chronic; F17.210 Nicotine dependence, cigarettes, uncomplicated; F70 Mild intellectual disabilities; F41.1 Generalized anxiety disorder; G47.33 Obstructive sleep apnea (adult) (pediatric) | CPT/HCPCS: 99214 ==

== ENCOUNTER → 2021-01-24 08:50 | Outpatient (BNVA) | payer MEDICARE, MEDICAID, SELFPAY | PROVIDERS: PCP Family Medicine; Visit Provider Nurse Practitioner Psychiatric/Mental Health | DX: F31.4 Bipolar disorder, current episode depressed, severe, without psychotic features (principal); F41.1 Generalized anxiety disorder; F43.12 Post-traumatic stress disorder, chronic; F70 Mild intellectual disabilities; G47.33 Obstructive sleep apnea (adult) (pediatric); F17.210 Nicotine dependence, cigarettes, uncomplicated | CPT/HCPCS: 99215 ==

== ENCOUNTER 2021-02-20 11:39 | Outpatient (CLI) | payer MEDICARE, MEDICAID, SELFPAY ==
[2021-02-20 12:21] LABS: Basophils # 0.1 10^3/uL (0.0-0.1); Basophils % 0.7 %; Eosinophils # 0.2 10^3/uL (0.0-0.8); Eosinophils % 1.6 %; Hematocrit 34.2 % (37.0-47.0); Hemoglobin 10.1 g/dL (11.5-15.3); Lymphocytes # 3.7 10^3/uL (0.8-4.8); Lymphocytes % 31.7 %; Mean Corpuscular HGB Conc 29.5 g/dL (30.0-36.0); Mean Corpuscular Hemoglobin 25.2 pg (28.0-34.0); Mean Corpuscular Volume 85.3 fL (81-99); Mean Platelet Volume 10.3 fL (7.4-10.4); Monocytes # 0.8 10^3/uL (0.2-0.9); Monocytes % 6.6 %; Neutrophils # 6.83 10^3/uL (1.8-7.7); Neutrophils % 59.1 %; Nucleated Red Blood Cells % 0 %; Platelet Count 478 10^3/cmm (130-400); Red Blood Count 4.01 10^6/uL (4.1-5.3); Red Cell Distribution Width 16.7 % (12.1-15.1); White Blood Count 11.5 10^3/uL (4.0-10.0)
--- NOTE | 2021-02-20 14:04 | ONC CON_ITS ---
Dr. Dunaway New Patient Note Patient: Celia Ghosh Unit #: [id number]: [id number] Dicatated By: Heriberto Dunaway M.D.Date of Visit: February 20, 2021 Onc MED New Patient/Consult Referring Physician: Dr. Kendrick Dillon M.D. History of Present Illness: Ms. Celia Ghosh, is a 40-year-old female intermediate resident due to mental developmental delay and following psychiatric for bipolar disorder and history of obstructive apnea for which she uses CPAP, was recently evaluated by PMD on January 16, 2021 and her routine follow-up lab work-up showed white blood count 9.8 hemoglobin 12.3 g hematocrit 39.4 platelets 573,000 with normal differential CBC was repeated on January 24, 2021 again showed white blood count 8.9 hemoglobin 11.8 g hematocrit 38.5 platelets 596,000 with a normal differential at that time patient underwent SPEP testing which shows no restricted band seen. Her peripheral blood smear showed increased platelet, rare giant form present, some platelet clumping., White blood cell full maturation of granulocytic series. And occasionally band forms and activated lymphocytes. BMP was within normal range except alkaline phosphatase 196. Patient denies any night sweats, denies any recurrent fever but weight loss, as per caregiver patient is sharing room with diabetic patient and now her diet has changed moreover she stopped consuming excessive soda beverages. Patient denies any peripheral lymphadenopathy, denies any abdominal fullness but off and on some discomfort in epigastric/right abdomen area but no abdominal fullness, recent history of diarrhea but no mucus or melena or hematochezia, no hematuria, no dysuria, no sore throat, no sinus problem, no hemoptysis or hematemesis., Patient is a smoker, smokes about half to 1 pack a day denies alcohol use. Past Medical History: Ms. Ayala medical history consists of anxiety, bipolar disorder, cardiac murmur, depression, dysphagia, gastritis and duodenitis, gastroesophageal reflux disease, glaucoma, mental developmental delay, and obstructive sleep apnea. Past Surgical History: Ms. Ayala surgical/procedural history consists of tubal ligation in 1996. Medications: Abilify 2 Tablet (of 10 mg) Oral daily, Acetaminophen Capsule Oral PRN, Azopt 1 Drop(s) (of 1 %) Suspension Ophthalmic b.i.d., Calcium 500 + D3 1 Tablet (of 500-200 mg - Units) Oral daily, Claritin 1 Tablet (of 10 mg) Oral daily, clonazePAM Tablet Oral PRN, Combigan 1 Drop(s) (of 0.2-0.5 %) Solution Ophthalmic b.i.d., Cyproheptadine HCl 2 Tablet (of 4 mg) Oral daily, Feldene Capsule Oral PRN, LaMICtal (100 mg) Tablet Oral Take as Directed, [place]ora Carbonate (300 mg) Tablet Oral Take as Directed, Lumigan 1 Drop(s) (of 0.01 %) Solution Ophthalmic daily, Omeprazole 1 Capsule (of 40 mg) Capsule Delayed Release Oral daily, Pepto-Bismol Suspension Oral PRN, Robitussin 12 Hour Cough Syrup Oral PRN, Sertraline HCl 2 Tablet (of 100 mg) Oral daily Allergies: Depakote Social History: Ms. Ghosh is single. She is a daily smoker who has smoked 1.0 pack/day for 24 years. She has no history of drinking. Family History: Ms. Ghosh does not know if her mother is alive. Ms. Ghosh does not know if her father is alive. Review Of Symptoms: Review of Systems is not available for this patient. Vital Signs: Most recent vitals are not available for this patient. Performance Status: 0 - Fully active, able to carry on all predisease activities without restrictions. (ECOG) Physical Examination: ENMT - No mouth sores, no thrush, no jaundice, no cervical or axillary lymphadenopathy, Respiratory - Lungs are clear to auscultation, Cardiovascular - Regular rate and rhythm of heart, Abdomen - Soft, bowel sounds present, no rebound tenderness no mass palpable, Extremities - No visible edema or rash or peripheral lymphadenopathy. Lab/Imaging: Most recent lab results are not available for this patient. Impression: Thrombocytosis etiology unclear probably multifactorial could be due to progressive anemia, due to inflammation, patient has arthritis like pain in multiple joints, or recent episode of diarrhea could be due to underlying colitis. Or iron deficiency or smoking, or myeloproliferative disorder but less likely Anemia, normocytic normochromic could be combined iron deficiency/B12 deficiency or anemia of chronic disease Bipolar disorder Mental retardation Smoking Plan: Discussed with patient and caregiver regarding her labs done today in hematology clinic showed white blood count 11.5 thousand, hemoglobin 10.1 g compared to 12.3 g on January 16, 2021, platelet count 478,000 compared to 573,000 on January 16, 2021 with a normal differential Clinically, patient doing well with no new signs symptoms except vague musculoskeletal pain, patient is attributing this to arthritis and also complaining of off and on epigastric/right upper abdomen pain, may have underlying gastritis or colitis or other intra-abdominal pathology but on exam there is no rebound tenderness, no mass palpable, no fluid shift, no focal tenderness. Her CBC also showed mild leukocytosis again could be multifactorial including smoking, intra-abdominal inflammation or underlying inflammatory process like arthritis. Her mild thrombocytosis which is improving could be multifactorial including as mentioned above due to underlying chronic/subacute inflammation or as her follow-up CBC showed anemia she did have iron deficiency anemia or underlying myeloproliferative disorder but less likely Progressive mild anemia again etiology unclear could be due to chronic GI blood loss patient has his distant history of abdominal pain, diarrhea but denies any mucus or melena hematochezia or peptic ulcer disease or underlying marrow disorder but less likely Her thrombocytosis is improving patient has progressive anemia and mild leukocytosis, at this point will consider anemia work-up with iron studies, B12, folate level, reticulocyte count, sed rate and also consider abdominal sonogram to check spleen size or other intra-abdominal abnormality, patient was advised in case she has worsening of abdominal pain, she need to go to hospital for evaluation otherwise return in 2 weeks with CBC and above-mentioned work-up Patient was advised to quit smoking and was offered any assistance she may need Signed By: Heriberto Dunaway M.D. <<Signature on File>>
[2021-02-20 20:14] LABS: Reticulocyte % 1.1 % (0.5-2.0)
[2021-02-20 21:01] LABS: Erythrocyte Sedimentation Rate 19 mm/hr (0-15)
[2021-02-21 07:49] LABS: Iron 17 ug/dL (37-145); Total Iron Binding Capacity 335 mcg/dl; Unsaturated Iron Binding 318 ug/dL (112-347)
[2021-02-21 08:04] LABS: Vitamin B12 698 pg/mL (232-1245)
== END 2021-02-20 11:40 | disposition home or self-care (01) ==
PROVIDERS: Internal Medicine Hematology & Oncology; PCP Family Medicine; Visit Provider Internal Medicine Medical Oncology
DX: D47.3 Essential (hemorrhagic) thrombocythemia (principal); D50.9 Iron deficiency anemia, unspecified; D51.9 Vitamin B12 deficiency anemia, unspecified; F31.9 Bipolar disorder, unspecified; F17.210 Nicotine dependence, cigarettes, uncomplicated; F79 Unspecified intellectual disabilities; Z79.899 Other long term (current) drug therapy
CPT/HCPCS: 82607; 83540; 83550; 85025; 85045; 85651; 99204

== ENCOUNTER 2021-04-10 15:29 | Outpatient (CLI) | payer MEDICARE, MEDICAID, SELFPAY ==
[2021-04-10 16:04] LABS: Basophils # 0.1 10^3/uL (0.0-0.1); Basophils % 0.6 %; Eosinophils # 0.2 10^3/uL (0.0-0.8); Eosinophils % 1.3 %; Hematocrit 35.7 % (37.0-47.0); Hemoglobin 10.5 g/dL (11.5-15.3); Lymphocytes # 4.1 10^3/uL (0.8-4.8); Lymphocytes % 32.3 %; Mean Corpuscular HGB Conc 29.4 g/dL (30.0-36.0); Mean Platelet Volume 10.9 fL (7.4-10.4); Monocytes # 0.8 10^3/uL (0.2-0.9); Monocytes % 5.9 %; Neutrophils # 7.53 10^3/uL (1.8-7.7); Neutrophils % 59.6 %; Nucleated Red Blood Cells % 0 %; Platelet Count 449 10^3/cmm (130-400); Positive M 1; Red Cell Distribution Width 17.2 % (12.1-15.1); White Blood Count 12.6 10^3/uL (4.0-10.0)
== END 2021-04-10 15:30 | disposition home or self-care (01) ==
LOC: ONCMED 15:36
PROVIDERS: PCP Family Medicine; Visit Provider Internal Medicine Hematology & Oncology
DX: D47.3 Essential (hemorrhagic) thrombocythemia (principal)
CPT/HCPCS: 36415; 85025

== ENCOUNTER 2021-04-11 08:56 | Outpatient (CLI) | payer MEDICARE, MEDICAID, SELFPAY ==
--- NOTE | 2021-04-23 16:53 | ONC FU_ITS ---
Dr. Dunaway follow up note Patient: Celia Ghosh Unit #: [id number]: [id number] Dicatated By: Heriberto Dunaway M.D.Date of Visit:Apr 11, 2021 Onc Med Follow-up/Prog Note History of Present Illness: Ms. Celia Ghosh, is a 40-year-old female [facility] resident due to mental developmental delay and following psychiatric for bipolar disorder and history of obstructive apnea for which she uses CPAP, was recently evaluated by PMD on January 16, 2021 and her routine follow-up lab work-up showed white blood count 9.8 hemoglobin 12.3 g hematocrit 39.4 platelets 573,000 with normal differential CBC was repeated on January 24, 2021 again showed white blood count 8.9 hemoglobin 11.8 g hematocrit 38.5 platelets 596,000 with a normal differential at that time patient underwent SPEP testing which shows no restricted band seen. Her peripheral blood smear showed increased platelet, rare giant form present, some platelet clumping., White blood cell full maturation of granulocytic series. And occasionally band forms and activated lymphocytes. BMP was within normal range except alkaline phosphatase 196. Patient denies any night sweats, denies any recurrent fever but weight loss, as per caregiver patient is sharing room with diabetic patient and now her diet has changed moreover she stopped consuming excessive soda beverages. Patient denies any peripheral lymphadenopathy, denies any abdominal fullness but off and on some discomfort in epigastric/right abdomen area but no abdominal fullness, recent history of diarrhea but no mucus or melena or hematochezia, no hematuria, no dysuria, no sore throat, no sinus problem, no hemoptysis or hematemesis., Patient is a smoker, smokes about half to 1 pack a day denies alcohol use. Came for follow-up, denies any specific complaints, no fever chills, no nausea vomiting, no diarrhea constipation, her menstrual periods are regular, denies any melena or hematochezia denies any hemoptysis or hematemesis denies any abdominal pain denies any nosebleed or gum bleed denies any hematuria denies any abdominal pain denies any weight loss. Denies any night sweats Medications: Abilify 2 Tablet (of 10 mg) Oral daily, Acetaminophen Capsule Oral PRN, Azopt 1 Drop(s) (of 1 %) Suspension Ophthalmic b.i.d., Calcium 500 + D3 1 Tablet (of 500-200 mg - Units) Oral daily, Claritin 1 Tablet (of 10 mg) Oral daily, clonazePAM Tablet Oral PRN, Combigan 1 Drop(s) (of 0.2-0.5 %) Solution Ophthalmic b.i.d., Cyproheptadine HCl 2 Tablet (of 4 mg) Oral daily, Feldene Capsule Oral PRN, LaMICtal (100 mg) Tablet Oral Take as Directed, Creekside Carbonate (300 mg) Tablet Oral Take as Directed, Lumigan 1 Drop(s) (of 0.01 %) Solution Ophthalmic daily, Omeprazole 1 Capsule (of 40 mg) Capsule Delayed Release Oral daily, Pepto-Bismol Suspension Oral PRN, Robitussin 12 Hour Cough Syrup Oral PRN, Sertraline HCl 2 Tablet (of 100 mg) Oral daily Allergies: Depakote Review of Systems: Review of Systems is not available for this patient. Vital Signs: Performed on Apr 11, 2021 10:03 Height - 56.00 in Weight - 106.2 lbs (LOW) BSA - 1.36 sq.m BMI - 23.81 Temperature - 97.4 F (LOW) Pulse - 67 /min Respiration - 18 /min BP - 112/74 mm(hg) O2 Sat - 99 % Pain - 0 Fatigue - 6 Performance Status: 0 - Fully active, able to carry on all predisease activities without restrictions. (ECOG) Physical Examination: ENMT - No mouth sores, no thrush, no jaundice, no cervical lymphadenopathy, Respiratory - Lungs are clear to auscultation, Cardiovascular - Regular rate and rhythm of heart, Abdomen - Soft, bowel sounds present, Extremities - No visible edema. Lab/Imaging: Test performed on February 20, 2021 12:01 WBC 11.5 10 3/uL RBC 4.01 10 6/uL HGB 10.1 g/dL HCT 34.2 % MCV 85.3 fL MCH 25.2 pg MCHC 29.5 g/dL RDW 16.7 % Platelet Count 478 10 3/cmm MPV 10.3 fL Neutrophils 6.83 10 3/uL Lymphocytes 3.7 10 3/uL Monocytes 0.8 10 3/uL Eosinophils 0.2 10 3/uL Basophils 0.1 10 3/uL Neutrophil % 59.1 % Lymphocyte % 31.7 % Monocyte % 6.6 % Eosinophil % 1.6 % Basophils % 0.7 % NRBC % 0 % Impression: Thrombocytosis etiology unclear probably multifactorial could be due to progressive anemia, due to inflammation, patient has arthritis like pain in multiple joints, or recent episode of diarrhea could be due to underlying colitis. Or iron deficiency or smoking, or myeloproliferative disorder but less likely Anemia, normocytic normochromic could be combined iron deficiency/B12 deficiency or anemia of chronic disease, Lab work-up done on February 20, 2021 is consistent with iron deficiency as iron saturations of 5, iron 17 TIBC 335 B12 698 reticulocyte 1.1 sed rate 19 Bipolar disorder Mental retardation Smoking Plan: Discussed with patient regarding her labs white blood count 12.6 hemoglobin 10.5 hematocrit 35.7 MCV 85 platelets 449,000 iron studies shows iron saturation 5 normal being 20-50, iron 17, normal being 37-1 45, TIBC 335, ferritin is pending B12 698, reticulocyte count 1.1 sed rate 19 Clinically, patient is doing well, her anemia work-up confirmed iron deficiency anemia, at this point, will consider oral iron 2 tablets a day and then she will return to clinic in 1 month with CBC and iron studies, Etiology of iron deficiency anemia could be chronic GI blood loss as per patient her menses are regular, will refer her to GI for EGD and colonoscopy to rule out GI source of bleeding Her thrombocytosis could be due to iron deficiency, will monitor if with normalization of iron stores, she has persistent thrombocytosis, may consider work-up Abdominal sonogram was done on March 15, 2021 was normal but no mention about spleen size. And her mammogram done on April 05, 2021 was benign. Again as mentioned above return to clinic in 1 month with CBC and iron studies and patient will take oral iron supplement as recommended Signed By: Heriberto Dunaway M.D. <<Signature on File>>
== END 2021-04-11 08:57 | disposition home or self-care (01) ==
LOC: ONCMED 09:02
PROVIDERS: PCP Family Medicine; Visit Provider Internal Medicine Hematology & Oncology
DX: D47.3 Essential (hemorrhagic) thrombocythemia (principal); D50.9 Iron deficiency anemia, unspecified; F31.9 Bipolar disorder, unspecified; F79 Unspecified intellectual disabilities; F17.200 Nicotine dependence, unspecified, uncomplicated; Z79.899 Other long term (current) drug therapy
CPT/HCPCS: 99214

== ENCOUNTER → 2021-05-05 07:27 | Outpatient (BNVA) | payer MEDICARE, MEDICAID, SELFPAY | PROVIDERS: PCP Family Medicine; Visit Provider Nurse Practitioner Psychiatric/Mental Health | DX: F31.4 Bipolar disorder, current episode depressed, severe, without psychotic features (principal); F43.12 Post-traumatic stress disorder, chronic; F17.210 Nicotine dependence, cigarettes, uncomplicated; F41.1 Generalized anxiety disorder; F70 Mild intellectual disabilities; G47.33 Obstructive sleep apnea (adult) (pediatric) | CPT/HCPCS: 99214 ==

== ENCOUNTER 2021-05-15 08:49 | Outpatient (CLI) | payer MEDICARE, MEDICAID, SELFPAY ==
[2021-05-15 09:31] LABS: Basophils # 0.1 10^3/uL (0.0-0.1); Basophils % 0.9 %; Eosinophils # 0.2 10^3/uL (0.0-0.8); Eosinophils % 2.3 %; Hematocrit 36.1 % (37.0-47.0); Hemoglobin 10.4 g/dL (11.5-15.3); Lymphocytes # 2.5 10^3/uL (0.8-4.8); Lymphocytes % 38.7 %; Mean Corpuscular HGB Conc 28.8 g/dL (30.0-36.0); Mean Corpuscular Hemoglobin 25.9 pg (28.0-34.0); Mean Corpuscular Volume 89.8 fl (81-99); Mean Platelet Volume 11.3 fL (7.4-10.4); Monocytes # 0.4 10^3/uL (0.2-0.9); Monocytes % 6.2 %; Neutrophils % 51.7 %; Nucleated Red Blood Cells % 0 %; Platelet Count 339 10^3/cmm (130-400); Red Blood Count 4.02 10^6/uL (4.1-5.3); Red Cell Distribution Width 21.2 % (12.1-15.1); White Blood Count 6.6 10^3/uL (4.0-10.0)
[2021-05-15 09:57] LABS: Ferritin 35 ng/mL (15-150); Iron 79 ug/dL (37-145); Total Iron Binding Capacity 272 mcg/dl; Unsaturated Iron Binding 193 ug/dL (112-347)
== END 2021-05-15 08:50 | disposition home or self-care (01) ==
LOC: ONCMED 08:56
PROVIDERS: PCP Family Medicine; Visit Provider Internal Medicine Hematology & Oncology
DX: D47.3 Essential (hemorrhagic) thrombocythemia (principal); D50.9 Iron deficiency anemia, unspecified; Z79.899 Other long term (current) drug therapy
CPT/HCPCS: 36415; 82728; 83540; 83550; 85025

== ENCOUNTER 2021-05-23 08:58 | Outpatient (CLI) | payer MEDICARE, MEDICAID, SELFPAY ==
--- NOTE | 2021-05-23 11:36 | ONC FU_ITS ---
Dr. Dunaway follow up note Patient: Celia Ghosh Unit #: [id number]: 1980 Dicatated By: Heriberto Dunaway M.D.Date of Visit:May 23, 2021 Onc Med Follow-up/Prog Note History of Present Illness: Ms. Celia Ghosh, is a 40-year-old female shelter resident due to mental developmental delay and following psychiatric for bipolar disorder and history of obstructive apnea for which she uses CPAP, was recently evaluated by PMD on January 16, 2021 and her routine follow-up lab work-up showed white blood count 9.8 hemoglobin 12.3 g hematocrit 39.4 platelets 573,000 with normal differential CBC was repeated on January 24, 2021 again showed white blood count 8.9 hemoglobin 11.8 g hematocrit 38.5 platelets 596,000 with a normal differential at that time patient underwent SPEP testing which shows no restricted band seen. Her peripheral blood smear showed increased platelet, rare giant form present, some platelet clumping., White blood cell full maturation of granulocytic series. And occasionally band forms and activated lymphocytes. BMP was within normal range except alkaline phosphatase 196. Patient denies any night sweats, denies any recurrent fever but weight loss, as per caregiver patient is sharing room with diabetic patient and now her diet has changed moreover she stopped consuming excessive soda beverages. Patient denies any peripheral lymphadenopathy, denies any abdominal fullness but off and on some discomfort in epigastric/right abdomen area but no abdominal fullness, recent history of diarrhea but no mucus or melena or hematochezia, no hematuria, no dysuria, no sore throat, no sinus problem, no hemoptysis or hematemesis., Patient is a smoker, smokes about half to 1 pack a day denies alcohol use. Came for follow-up, denies any specific complaints, no fever chills, no nausea or vomiting, no diarrhea or constipation, tolerating oral iron well. As per patient she was evaluated for cholecystectomy but during preop evaluation she was found to have inflammation in her throat/esophagus and she was given antibiotics/antifungal and also underwent barium swallow as a part of further work-up. Patient is also scheduled for colonoscopy for iron deficiency anemia Medications: Abilify 2 Tablet (of 10 mg) Oral daily, Acetaminophen Capsule Oral PRN, Azopt 1 Drop(s) (of 1 %) Suspension Ophthalmic b.i.d., Calcium 500 + D3 1 Tablet (of 500-200 mg - Units) Oral daily, Claritin 1 Tablet (of 10 mg) Oral daily, clonazePAM Tablet Oral PRN, Combigan 1 Drop(s) (of 0.2-0.5 %) Solution Ophthalmic b.i.d., Cyproheptadine HCl 2 Tablet (of 4 mg) Oral daily, Feldene Capsule Oral PRN, LaMICtal (100 mg) Tablet Oral Take as Directed, [place] Carbonate (300 mg) Tablet Oral Take as Directed, Lumigan 1 Drop(s) (of 0.01 %) Solution Ophthalmic daily, Omeprazole 1 Capsule (of 40 mg) Capsule Delayed Release Oral daily, Pepto-Bismol Suspension Oral PRN, Robitussin 12 Hour Cough Syrup Oral PRN, Sertraline HCl 2 Tablet (of 100 mg) Oral daily Allergies: Depakote Review of Systems: Review of Systems is not available for this patient. Vital Signs: Performed on May 23, 2021 09:12 Height - 56.00 in Weight - 105.4 lbs (LOW) BSA - 1.35 sq.m BMI - 23.63 Temperature - 97.8 F (LOW) Pulse - 99 /min Respiration - 18 /min BP - 92/64 mm(hg) O2 Sat - 100 % Pain - 0 Fatigue - 5 Performance Status: 0 - Fully active, able to carry on all predisease activities without restrictions. (ECOG) Physical Examination: ENMT - . No mouth sores, no thrush, no jaundice, Respiratory - Lungs are clear to auscultation, Cardiovascular - Regular rate and rhythm of heart, Abdomen - Soft, bowel sounds present, Extremities - No visible edema. Lab/Imaging: Test performed on February 20, 2021 12:01 WBC 11.5 10 3/uL RBC 4.01 10 6/uL HGB 10.1 g/dL HCT 34.2 % MCV 85.3 fL MCH 25.2 pg MCHC 29.5 g/dL RDW 16.7 % Platelet Count 478 10 3/cmm MPV 10.3 fL Neutrophils 6.83 10 3/uL Lymphocytes 3.7 10 3/uL Monocytes 0.8 10 3/uL Eosinophils 0.2 10 3/uL Basophils 0.1 10 3/uL Neutrophil % 59.1 % Lymphocyte % 31.7 % Monocyte % 6.6 % Eosinophil % 1.6 % Basophils % 0.7 % NRBC % 0 % Impression: Thrombocytosis etiology unclear probably multifactorial could be due to progressive anemia, due to inflammation, patient has arthritis like pain in multiple joints, or recent episode of diarrhea could be due to underlying colitis. Or iron deficiency or smoking, or myeloproliferative disorder but less likely Anemia, normocytic normochromic could be combined iron deficiency/B12 deficiency or anemia of chronic disease, Lab work-up done on February 20, 2021 is consistent with iron deficiency as iron saturations of 5, iron 17 TIBC 335 B12 698 reticulocyte 1.1 sed rate 19 Bipolar disorder Mental retardation Smoking Plan: Discussed with patient regarding her labs white blood count 6.6 hemoglobin 12.4 hematocrit 36.1 platelets 339,000 iron studies shows iron saturation 29%, iron 79, TIBC 272, ferritin 35, compared to iron saturation of 5%, iron 17, TIBC 335 on on February 20, 2021, patient is on oral iron supplement now Clinically, patient is doing well, feeling somewhat better, tolerating oral iron supplement well her follow-up CBC and iron studies shows improvement in iron stores but with persistent but stable mild anemia. At this point we will continue with oral iron supplement for another month and then she will return to clinic in a month with CBC and iron studies if her iron stores continue to improve but no improvement in her hemoglobin, may consider bone marrow evaluation to rule out underlying pathology as her reticulocyte count was 1.1, which was suboptimal. Patient was encouraged to be compliant with oral iron supplement and was also encouraged to follow-up with colonoscopy/EGD evaluation Signed By: Heriberto Dunaway M.D. <<Signature on File>>
== END 2021-05-23 08:59 | disposition home or self-care (01) ==
PROVIDERS: PCP Family Medicine; Visit Provider Internal Medicine Hematology & Oncology
DX: D47.3 Essential (hemorrhagic) thrombocythemia (principal); D50.9 Iron deficiency anemia, unspecified; F31.9 Bipolar disorder, unspecified; F79 Unspecified intellectual disabilities; F17.200 Nicotine dependence, unspecified, uncomplicated; Z79.899 Other long term (current) drug therapy
CPT/HCPCS: 99214

== ENCOUNTER → 2021-06-02 07:32 | Outpatient (BNVA) | payer MEDICARE, MEDICAID, SELFPAY | PROVIDERS: PCP Family Medicine; Visit Provider Nurse Practitioner Psychiatric/Mental Health | DX: F31.4 Bipolar disorder, current episode depressed, severe, without psychotic features (principal); F43.12 Post-traumatic stress disorder, chronic; F41.1 Generalized anxiety disorder; F17.210 Nicotine dependence, cigarettes, uncomplicated; F70 Mild intellectual disabilities; G47.33 Obstructive sleep apnea (adult) (pediatric) | CPT/HCPCS: 99214 ==

== ENCOUNTER → 2021-07-03 14:26 | Outpatient (BNVA) | payer MEDICARE, MEDICAID, SELFPAY | PROVIDERS: PCP Family Medicine; Visit Provider Surgery | DX: Z20.822 Contact with and (suspected) exposure to COVID-19 (principal) | CPT/HCPCS: 87635 ==

== ENCOUNTER 2021-07-06 08:25 | Day surgery (SDC) | payer MEDICARE, MEDICAID, SELFPAY ==
--- NOTE | 2021-07-06 09:35 | ANES.PREANE2 ---
Pre-Anesthetic Assessment Pre-Anesthetic Assessment: Height/Weight: Height 1.42 m Weight 49.895 kg Preop Diagnosis: panendoscopy Proposed Procedure: Operation Date: 07/06/21 10:00 Proposed Procedures p EGD/colon 01613 33131 D50.9(Not Applicable) - Tello Marks MD s Colonoscopy(Not Applicable) - Tello Marks MD Familial anesthetic complications: none Was Beta Lawson taken within 24 hours: N/A Was Clonidine taken within 24 hours: N/A Last Intake: 23:00 Social: Social History: Tobacco and No alcohol Packs per day: 1ppd Pack years: 25+ Exam: Pre-Anes Outpt Exam: alert, oriented x 3, clear to auscultation bilaterally and regular rate & rhythm Airway: Submandibular: WNL Cervical ROM: WNL MP: 1 Dentition: Full Pulmonary: Pulmonary: COPD and Sleep apnea CV/HEM: CV/HEM: None reported : : None reported Hepatic: Hepatic: None reported GI: GI: GERD Metabolic: Metabolic: None reported Musc/skel: Musc/skel: None reported Neuropsych: Neuropsych: Anxiety, Bipolar, Depression and Seizure Anesthetic Plan: ASA status: 2 Anesthesia: MAC PFSH Anesthesia PFSH: Medical History (Updated 06/02/21 @ 17:02 by Radha Poole) Bipolar disorder, current episode depressed, severe, without psychotic features Chronic post-traumatic stress disorder Generalized anxiety disorder Mild intellectual disabilities Obstructive sleep apnea Psychiatric care Surgical History (Updated 05/05/21 @ 09:34 by Tello Marks MD) History of surgery bilateral leg surgery (1985) History of tubal ligation 1996 Social History Smoking and tobacco status: current every day smoker Data Anesthesia Cardiac Studies: No Data to Display
[2021-07-06 09:49] VITALS: BP 114/73; PULSE 67; RESP 16; O2SAT 100
[2021-07-06] MEDS: sodium chloride 0.9% 1,000 ML 30 ML IV (10:01)
--- NOTE | 2021-07-06 10:31 | W.PM.OPSFHP ---
Same Day Surgery H&P Indication for Procedure/HPI DATE OF PROCEDURE: July 06, 2021 CHIEF COMPLAINT/INDICATIONFOR SURGICAL PROCEDURE: anemia for egd/colon PREOP DIAGNOSIS: panendoscopy PLANNED PROCEDRUE: Operation Date: 07/06/21 10:00 Proposed Procedures p EGD/colon [id number] D50.9(Not Applicable) - Tello Marks MD s Colonoscopy(Not Applicable) - Tello Marks MD Medications/Allergies* Home Medications Medication Instructions Recorded Confirmed Type bimatoprost 0.01 % eye drops 1 drop OPHTHALMIC (EYE) BEDTIME 10/20/19 07/06/21 History bismuth subsalicylate 262 mg/15 mL 524 mg PO ONCE PRN 10/20/19 07/04/21 History oral suspension calcium carbonate 500 mg calcium 500 mg PO DAILY tab 10/20/19 07/06/21 History (1,250 mg) tablet carbamide peroxide 6.5 % ear drops 10 drop EAR-BOTH BID PRN ml 10/20/19 07/04/21 History dextromethorphan polistirex 30 10 ml PO QID PRN 10/20/19 07/04/21 History mg/5 mL oral susp ext.release 12hr loratadine 10 mg tablet 10 mg PO QDAY 10/20/19 07/06/21 History omeprazole 40 mg capsule,delayed 40 mg PO DAILY 10/20/19 07/06/21 History release piroxicam 20 mg capsule 20 mg PO QDAY PRN 10/20/19 07/06/21 History acetaminophen [Tylenol] 325 mg PO Q4H PRN 08/18/20 07/04/21 History omeprazole 20 mg PO DAILY 08/18/20 07/06/21 History Combigan 1 drp OPHTHALMIC (EYE) BID 08/19/20 07/06/21 History ferrous sulfate 325 mg (65 mg 325 mg PO BID 05/04/21 07/06/21 History iron) tablet hydrocodone 5 mg-acetaminophen 300 1 tab PO .PRN tab 05/04/21 07/04/21 History mg tablet Allergies/Adverse Reactions Allergy/AdvReac Type Severity Reaction Status Date / Time ziprasidone [From Geodon] Allergy Unknown Unknown Verified 07/06/21 09:35 divalproex sodium Allergy Unknown Verified 07/06/21 09:35 [From Depakote] Current Medications: Generic Name Dose Route Start Last Admin Trade Name Marisol PRN Reason Stop Dose Admin Sodium Chloride 1,000 mls @ 30 mls/hr 07/06/21 08:45 07/06/21 10:01 Sodium Chloride 0.9% IV 07/07/21 08:44 30 mls/hr .Q24H KASSIE Administration Pertinent History/Comorbid Conditions* Medical History (Updated 06/02/21 @ 17:02 by Radha Poole) Bipolar disorder, current episode depressed, severe, without psychotic features Chronic post-traumatic stress disorder Generalized anxiety disorder Mild intellectual disabilities Obstructive sleep apnea Psychiatric care Surgical History (Updated 05/05/21 @ 09:34 by Tello Marks MD) History of surgery bilateral leg surgery (1985) History of tubal ligation 1996 Social History Smoking and tobacco status: current every day smoker Pertinent Exam Findings alert, oriented x 3 and regular rate & rhythm Recommendations Surgery/Procedure today Coding Level of Care Code Acute Bed Spring Maker for Tonia Robbins
[2021-07-06 11:04] VITALS: BP 114/77; PULSE 78; RESP 16; TEMP 36.1; O2SAT 97
--- NOTE | 2021-07-06 11:11 | ANE.PACU2 ---
Inpatient post-anesthesia follow up: Airway intact: Yes Vital signs: Temperature 97.0 F Pulse Rate 78 Respiratory Rate 16 Blood Pressure 114/77 Pulse Oximetry 97 Oxygen Delivery Me thod Nasal Cannula Oxygen Flow Rate 3 Fraction of Inspir ed Oxygen Hydration adequate: Yes Nausea and vomiting: No Pain level: 1 Mental status: Baseline
[2021-07-06 11:18] VITALS: BP 134/106; PULSE 70; RESP 16; O2SAT 94
== END 2021-07-06 11:39 | disposition home or self-care (01) ==
PROVIDERS: PCP Family Medicine; Visit Provider Surgery
PROC: 0DJ08ZZ Inspection of Upper Intestinal Tract, Via Natural or Artificial Opening Endoscopic (ICD-10-PCS; CPT 43235; principal; 2021-07-06 10:00)
PROC: 0DJD8ZZ Inspection of Lower Intestinal Tract, Via Natural or Artificial Opening Endoscopic (ICD-10-PCS; CPT 45378; 2021-07-06 10:00)
DX: D50.9 Iron deficiency anemia, unspecified (principal); K29.70 Gastritis, unspecified, without bleeding; J44.9 Chronic obstructive pulmonary disease, unspecified; G47.30 Sleep apnea, unspecified; F31.9 Bipolar disorder, unspecified; F41.9 Anxiety disorder, unspecified; F43.12 Post-traumatic stress disorder, chronic; G47.33 Obstructive sleep apnea (adult) (pediatric); F17.210 Nicotine dependence, cigarettes, uncomplicated
CPT/HCPCS: 43235; 45378; 81025; 96360; J2704; J7030

== ENCOUNTER → 2021-08-09 11:15 | Outpatient (BNVA) | payer MEDICARE, MEDICAID, SELFPAY | PROVIDERS: PCP Family Medicine; Visit Provider Nurse Practitioner Psychiatric/Mental Health | DX: F31.4 Bipolar disorder, current episode depressed, severe, without psychotic features (principal); F43.12 Post-traumatic stress disorder, chronic; F70 Mild intellectual disabilities; F17.210 Nicotine dependence, cigarettes, uncomplicated; G47.33 Obstructive sleep apnea (adult) (pediatric); F41.1 Generalized anxiety disorder | CPT/HCPCS: 99214 ==

== ENCOUNTER → 2021-12-27 10:36 | Outpatient (BNVA) | payer MEDICARE, MEDICAID, SELFPAY | PROVIDERS: PCP Family Medicine; Visit Provider Nurse Practitioner Psychiatric/Mental Health | DX: F31.4 Bipolar disorder, current episode depressed, severe, without psychotic features (principal); F43.12 Post-traumatic stress disorder, chronic; F70 Mild intellectual disabilities | CPT/HCPCS: 99214 ==

== ENCOUNTER 2022-01-11 14:46 | Emergency (ER) | payer MEDICARE, MEDICAID, SELFPAY ==
[2022-01-11 15:00] VITALS: BP 125/73; PULSE 79; RESP 16; TEMP 36.6; O2SAT 98; BMI 28.8
--- NOTE | 2022-01-11 15:17 | CT_ITS ---
WS: [id number] CT HEAD NONCONTRAST HISTORY: head pain TECHNIQUE: Contiguous axial imaging performed through the brain in 2.5 mm imaging. Bone and soft tiss ue windows. Sagittal and coronal reformats reviewed. All CT scans at [facility] use at least one of these dose optimization techniques: automated exposure control; mA and/or kV adjustment per pa tient size (includes targeted exams where dose is matched to clinical indication); or iterative recon struction. DLP: 783.02 mGy.cm COMPARISON: 01/13/2019 No acute intracranial hemorrhage, midline shift or mass effect. No atrophy or prior infarcts or herniation. Ventricles: Normal size with no hydrocephalus. No inferior displacement of the cerebellar tonsils. Paranasal sinuses: Moderate mucoperiosteal thickening in the ethmoid air cells, LEFT greater than RIG HT. No air-fluid levels. Mastoid air cells: Well pneumatized. Calvarium and scalp: Skull is intact with no soft tissue edema or swelling. CT/CT head wo con* [id number] IMPRESSION: 1. No acute intracranial hemorrhage or edema. 2. Mild bilateral ethmoid sinus disease.
--- NOTE | 2022-01-11 15:17 | CT_ITS ---
WS: [id number] CT CHEST, ABDOMEN AND PELVIS WITHOUT CONTRAST. HISTORY: Fall, pain in ribs. TECHNIQUE: Contiguous 5 mm axial imaging performed through the chest, abdomen and pelvis without IV c ontrast, oral contrast has not been provided. Coronal and sagittal reformats chest. Coronal and sagit kaylynn reformats through the abdomen and pelvis. All CT scans at [facility] use at least one of these dose optimization techniques: automated exposure control; mA and/or kV adjustment per patient s ize (includes targeted exams where dose is matched to clinical indication); or iterative reconstructi on. CONTRAST: None DLP: 1042.12 mGy.cm COMPARISON: 08/09/2011 and 02/13/[address]: Lungs are clear and well aerated. No pulmonary contusion, laceration or effusion. Thoracic aorta is normal size. Heart size is normal. No significant hiatal hernia or cardiomegaly. No rib frac tures are identified. No thoracic spine fracture. Abdomen CT: No visceral organ injury is identified. No hematoma or laceration identified associated w ith the liver or spleen. Gallbladder is negative. No stones are identified on today's examination. Pa ncreas, adrenal glands and kidneys are negative. Aorta is normal. No mesenteric injury. No GI tract a bnormality. The appendix is partially calcified. Pelvic CT: [place] distended urinary bladder. Uterus is midline. Bilateral Essure inserts in the fallo pian tubes. Small amount of fluid in the cul-de-sac. Partial fusion of the SI joints. No thoracic or lumbar fractures are identified. CT/CT chest abd pel wo con IMPRESSION: 1. No acute abdominal or pelvic injury identified on this unenhanced study. 2. There is a small amount of free fluid in the pelvis which could be physiolo gic. No mesenteric hematoma. 3. Appendicoliths without acute appendicitis. 4. No pneumothorax or lung abnormality.
--- NOTE | 2022-01-11 15:17 | CT_ITS ---
WS: [id number] CT CERVICAL SPINE HISTORY: eval for injury TECHNIQUE: Contiguous 2.5 mm axial imaging performed through the entire cervical spine. Sagittal and coronal reformats also performed. All CT scans at [facility] use at least one of these dose o ptimization techniques: automated exposure control; mA and/or kV adjustment per patient size (include s targeted exams where dose is matched to clinical indication); or iterative reconstruction. DLP: 252.43 mGy.cm COMPARISON: 01/13/2019 There is severe disc space narrowing and partial fusion across the disc spaces. Mild widening of the C6-7 disc space and anterolisthesis of C6 by 3 to 4 mm. These findings are very similar to the prior examination. Ankylosis across the disc space is also extends to involve the facet joints bilaterally from C2 through C5. Widening at the C5-6 facet joint is similar to the prior study. None of these niru nges appear acute. Paravertebral soft tissues are stable. CT/CT cervical spin wo con* [id number] IMPRESSION: 1. 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 2. As compared to prior study from 01/13/2019 there has been no significant int erval change. No acute fracture identified.
--- NOTE | 2022-01-11 15:20 | W.ED.GENADLT ---
HPI - General Adult General: Chief complaint: Fall Stated complaint: FALL Time Seen by Provider: 01/11/22 14:59 History of Present Illness: Patient is a 41-year-old female with a history of intellectual disability presenting to the emergency room after an episode of fall. Patient was working at [employer] when she was standing on a platform about 3 feet tall and she fell backwards and landed on her left side. Patient tells me that she briefly passed out for about 3 seconds. Patient complains of neck pain headache, right-sided belly pain and left-sided hip pain. Patient has not been able to ambulate because significant pain in the left hip. Patient also thoracic back pain. Patient denies any chest pain, shortness breath, palpitation, lightheadedness, nausea/vomiting, diarrhea melena hematochezia. Patient denies any anticoagulation use. Onset:1 hr ago Duration:once Location:[facility] Severity:fall Associated symptoms: Deny chest pain, dyspnea, nausea, rash, palpitations or vomiting Review of Systems Const: Denies: fever(s) or chills Eyes: Denies: change in vision ENMT: Denies: mouth pain Card: Denies: chest pain or palpitations Resp: Denies: dyspnea or non-productive cough GI: Denies: abdominal pain, nausea, vomiting or diarrhea : Denies: dysuria Musc: Reports: neck pain, back pain and extremity pain (+L hip pain) Skin/Breast: Denies: rash or new lesions Neuro: Denies: weakness in extremities Psych: Reports: other (Normal mood) Bobby/Lymph: Denies: easy bruising PFSH ED PFSH: Medical History Bipolar disorder, current episode depressed, severe, without psychotic features Chronic post-traumatic stress disorder Generalized anxiety disorder Mild intellectual disabilities Obstructive sleep apnea Psychiatric care Surgical History H/O esophagogastroduodenoscopy (07/06/21) History of surgery bilateral leg surgery (1985) History of tubal ligation 1997 Status post colonoscopy (07/06/21) Social History Smoking and tobacco status: current every day smoker Physical Exam Const: COMMON NORMALS: alert HENMT: COMMON NORMALS: atraumatic HEAD & SCALP: atraumatic MOUTH: moist mucous membranes not abnormal Eye: COMMON NORMALS: EOMs intact bilaterally and conjunctivae normal CONJUNCTIVA: Yes conjunctivae normal Neck/C-Spine: COMMON NORMALS: full ROM and supple Resp: COMMON NORMALS: normal respiratory effort and clear to auscultation bilaterally AUSCULTATION: clear to auscultation bilaterally Cardio: COMMON NORMALS: regular rate RATE: regular rate GI: COMMON NORMALS: Soft to palpation PALPATION: Yes Soft to palpation OTHER: + Right lateral abdominal tenderness palpation, no guarding rebound tenderness, focal quadrant tenderness to palpation Back/Pelvis: OTHER: + Thoracic midline and lumbar midline tenderness to palpation Extremity: NARRATIVE EXTREMITY EXAM: +L hip tenderness to palpation, + ROM of the left hip intact Neuro: SENSORIUM/ORIENTATION: Yes alert MOTOR EXAM: No Abnormal motor strength present and Other motor observations present (no focal motor deficits) Psych: COMMON NORMALS: speech normal SPEECH: Yes normal speech MOOD & AFFECT: Yes euthymic mood Course Vital Signs: Vital signs: Vital Signs Temperature 97.8 F 01/11/22 15:00 Pulse Rate 79 01/11/22 15:00 Respiratory Rate 16 01/11/22 15:00 Blood Pressure 125/73 01/11/22 15:00 Pulse Oximetry 98 01/11/22 15:00 MDM - General Adult Medical Decision Making 41-year-old female presenting to the emergency room after episode of fall. Patient complains of neck pain headache, left hip pain, thoracic/lumbar back pain and right lateral abdominal pain. Patient received Tylenol with improvement in pain. CT imagings are negative today. Patient is able to walk without any difficulty. C-collar has been cleared. Rx: Tylenol, lidocaine patch, and menthol PRN pain Disposition: Discharge. Patient counseled regarding diagnostic impression, treatment plan. Patient given ED strict return precautions to return for continuation, worsening, or development of new symptoms. Instructed to f/u w/ PCP regarding symptoms today. Patient verbalized understanding. Lab Data : 01/11/22 15:08 01/11/22 14:33 Radiology Impressions Cervical Spine CT 01/11/22 15:17 IMPRESSION: 1. 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 2. As compared to prior study from 01/13/2019 there has been no significant interval change. No acute fracture identified. Chest/Abdomen/Pelvis CT 01/11/22 15:17 IMPRESSION: 1. No acute abdominal or pelvic injury identified on this unenhanced study. 2. There is a small amount of free fluid in the pelvis which could be physiologic. No mesenteric hematoma. 3. Appendicoliths without acute appendicitis. 4. No pneumothorax or lung abnormality. Head CT 01/11/22 15:17 IMPRESSION: 1. No acute intracranial hemorrhage or edema. 2. Mild bilateral ethmoid sinus disease. Laboratory Results WBC 9.6 10^3/uL (4.0-10.0) 01/11/22 15:08 RBC 4.69 10^6/uL (4.1-5.3) 01/11/22 15:08 Hgb 13.3 g/dL (11.5-15.3) 01/11/22 15:08 Hct 42.7 % (37.0-47.0) 01/11/22 15:08 MCV 91.0 fl (81-99) 01/11/22 15:08 MCH 28.4 pg (28.0-34.0) 01/11/22 15:08 MCHC 31.1 g/dL (30.0-36.0) 01/11/22 15:08 RDW 13.9 % (12.1-15.1) 01/11/22 15:08 Plt Count 313 10^3/cmm (130-400) 01/11/22 15:08 MPV 11.6 fL (7.4-10.4) H 01/11/22 15:08 Neut % (Auto) 66.4 % 01/11/22 15:08 Lymph % (Auto) 27.1 % 01/11/22 15:08 [place] % (Auto) 4.7 % 01/11/22 15:08 Eos % (Auto) 0.9 % 01/11/22 15:08 Baso % (Auto) 0.6 % 01/11/22 15:08 Neut # (Auto) 6.39 10^3/uL (1.8-7.7) 01/11/22 15:08 Lymph # (Auto) 2.6 10^3/uL (0.8-4.8) 01/11/22 15:08 [place] # (Auto) 0.5 10^3/uL (0.2-0.9) 01/11/22 15:08 Eos # (Auto) 0.1 10^3/uL (0.0-0.8) 01/11/22 15:08 Baso # (Auto) 0.1 10^3/uL (0.0-0.1) 01/11/22 15:08 Nucleated RBC % (auto) 0 % 01/11/22 15:08 Nucleated RBCs # 0.0 /100WBC 01/11/22 15:08 PT 13.40 SECONDS (12.1-14.9) 01/11/22 14:33 INR 0.99 (0.8-1.2) 01/11/22 14:33 APTT 30.1 SECONDS (23.9-36.7) 01/11/22 14:33 Sodium 137 mmol/L (136-145) 01/11/22 14:33 Potassium 3.6 mmol/L (3.5-5.1) 01/11/22 14:33 Chloride 103 mmol/L (98-107) 01/11/22 14:33 Carbon Dioxide 21 mmol/L (22-29) L 01/11/22 14:33 Anion Gap 16.6 (5-19) 01/11/22 14:33 BUN 15 mg/dL (6-20) 01/11/22 14:33 Creatinine 0.8 mg/dL (0.5-0.9) 01/11/22 14:33 GFR Calculation 78.3 mL/min (90-130) L 01/11/22 14:33 Glucose 157 mg/dL (65-115) H 01/11/22 14:33 Calculated Osmolality 288 mOsm/kg (285-295) 01/11/22 14:33 Calcium 9.8 mg/dL (8.5-10.5) 01/11/22 14:33 Imaging Data Other Imaging: Radiologist's impression: [address] [address] [address] Scan Report Signed Patient: Ceila Ghosh Unit #: [id number] : 1980 Age/Sex: 41 / F ADM Date: 01/11/22 Loc: ER Room/Bed: Attending Dr: Ordering Provider/Ordering MD: Saleem Galeana MD Date of Service: 01/11/22 Procedure(s): CT head wo con* [id number] Accession Number(s): [id number] Report Number: [id number] WS: [id number] CT HEAD NONCONTRAST HISTORY: head pain TECHNIQUE: Contiguous axial imaging performed through the brain in 2.5 mm imaging. Bone and soft tissue windows. Sagittal and coronal reformats reviewed.? All CT scans at [facility] use at least one of these dose optimization techniques: automated exposure control; mA and/or kV adjustment per patient size (includes targeted exams where dose is matched to clinical indication); or iterative reconstruction. DLP: 783.02 mGy.cm COMPARISON: 01/13/2019 No acute intracranial hemorrhage, midline shift or mass effect. No atrophy or prior infarcts or herniation. Ventricles:? Normal size with no hydrocephalus. No inferior displacement of the cerebellar tonsils. Paranasal sinuses: Moderate mucoperiosteal thickening in the ethmoid air cells, LEFT greater than RIGHT. No air-fluid levels. Mastoid air cells: Well pneumatized. Calvarium and scalp: Skull is intact with no soft tissue edema or swelling. CT/CT head wo con* [id number] IMPRESSION: ? 1.? No acute intracranial hemorrhage or edema. 2.? Mild bilateral ethmoid sinus disease. ? Dictated By: Bree Chahal DO Signed By: Bree Chahal DO Signed Date/Time: 01/11/22 1536 DD/ [address] [address] [address] Scan Report Signed Patient: Celia Ghosh Unit #: [id number] : 1980 Age/Sex: 41 / F ADM Date: 01/11/22 Loc: ER Room/Bed: Attending Dr: Ordering Provider/Ordering MD: Saleem Galeana MD Date of Service: 01/11/22 Procedure(s): CT chest abd pel wo con Accession Number(s): [id number] Report Number: [id number] WS: [id number] CT CHEST, ABDOMEN AND PELVIS WITHOUT CONTRAST. HISTORY: Fall, pain in ribs. TECHNIQUE: Contiguous 5 mm axial imaging performed through the chest, abdomen and pelvis without IV contrast, oral contrast has not been provided. Coronal and sagittal reformats chest. Coronal and sagittal reformats through the abdomen and pelvis.? All CT scans at [facility] use at least one of these dose optimization techniques: automated exposure control; mA and/or kV adjustment per patient size (includes targeted exams where dose is matched to clinical indication); or iterative reconstruction. CONTRAST: None DLP: 1042.12 mGy.cm COMPARISON: 08/09/2011 and 02/13/[address]: Lungs are clear and well aerated. No pulmonary contusion, laceration or effusion. Thoracic aorta is normal size. Heart size is normal. No significant hiatal hernia or cardiomegaly. No rib fractures are identified. No thoracic spine fracture. Abdomen CT: No visceral organ injury is identified. No hematoma or laceration identified associated with the liver or spleen. Gallbladder is negative. No stones are identified on today's examination. Pancreas, adrenal glands and kidneys are negative. Aorta is normal. No mesenteric injury. No GI tract abnormality. The appendix is partially calcified. Pelvic CT: [place] distended urinary bladder. Uterus is midline. Bilateral Essure inserts in the fallopian tubes. Small amount of fluid in the cul-de-sac. Partial fusion of the SI joints. No thoracic or lumbar fractures are identified. CT/CT chest abd pel wo con IMPRESSION: ? 1.? No acute abdominal or pelvic injury identified on this unenhanced study. 2.? There is a small amount of free fluid in the pelvis which could be physiologic. No mesenteric hematoma. 3.? Appendicoliths without acute appendicitis. 4.? No pneumothorax or lung abnormality. ? Dictated By: Bree Chahal DO Signed By: Bree Chahal DO Signed Date/Time: 01/11/22 1552 DD/ [address] [address] [address] Scan Report Signed Patient: Celia Ghosh Unit #: [id number] : 1980 Age/Sex: 41 / F ADM Date: 01/11/22 Loc: ER Room/Bed: Attending Dr: Ordering Provider/Ordering MD: Saleem Galeana MD Date of Service: 01/11/22 Procedure(s): CT cervical spin wo con* [id number] Accession Number(s): [id number] Report Number: [id number] WS: [id number] CT CERVICAL SPINE HISTORY: eval for injury TECHNIQUE: Contiguous 2.5 mm axial imaging performed through the entire cervical spine. Sagittal and coronal reformats also performed.? All CT scans at [facility] use at least one of these dose optimization techniques: automated exposure control; mA and/or kV adjustment per patient size (includes targeted exams where dose is matched to clinical indication); or iterative reconstruction. DLP: 252.43 mGy.cm COMPARISON: 01/13/2019 There is severe disc space narrowing and partial fusion across the disc spaces. Mild widening of the C6-7 disc space and anterolisthesis of C6 by 3 to 4 mm. These findings are very similar to the prior examination. Ankylosis across the disc space is also extends to involve the facet joints bilaterally from C2 through C5. Widening at the C5-6 facet joint is similar to the prior study. None of these changes appear acute. Paravertebral soft tissues are stable. CT/CT cervical spin wo con* [id number] IMPRESSION: ? 1.? 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 2.? As compared to prior study from 01/13/2019 there has been no significant interval change. No acute fracture identified. ? Dictated By: Bree Chahal DO Signed By: Bree Chahal DO Signed Date/Time: 01/11/22 1544 DD/ 1536 Discharge Plan Discharge Patient Disposition: Home Clinical Impression: Fall Condition: Stable Prescriptions: New acetaminophen 500 mg tablet 500 mg PO Q6H PRN (Reason: pain) 5 Days Qty: 20 0RF lidocaine 5 % adhesive patch,medicated 1 patch topical DAILY PRN (Reason: pain) 30 Days Qty: 30 0RF Rx Instructions: leave on most painful area for up to 12 hrs Biofreeze (menthol) 5 % gel 1 ea topical BID PRN (Reason: pain) 10 Days Qty: 1 0RF No Action bismuth subsalicylate [Pepto-Bismol] 262 mg/15 mL suspension 524 mg PO ONCE PRN (Reason: diarrhea) 0RF Rx Instructions: PT UNABLE TO CONFIRM MEDICATIONS. CONFIRMED WITH PT'S LIEUTENANT BALLISTICS AND HER MAR. loratadine [Allergy Relief (loratadine)] 10 mg tablet 10 mg PO QDAY 0RF Rx Instructions: PT UNABLE TO CONFIRM MEDICATIONS. CONFIRMED WITH PT'S LIEUTENANT BALLISTICS AND HER MAR. calcium carbonate [Oyster Shell Calcium] 500 mg calcium (1,250 mg) tablet 500 mg PO DAILY 0RF Rx Instructions: PT UNABLE TO CONFIRM MEDICATIONS. CONFIRMED WITH PT'S LIEUTENANT BALLISTICS AND HER MAR. omeprazole 40 mg capsule,delayed release(DR/EC) 40 mg PO DAILY 0RF Rx Instructions: PT UNABLE TO CONFIRM MEDICATIONS. CONFIRMED WITH PT'S LIEUTENANT BALLISTICS AND HER MAR. piroxicam 20 mg capsule 20 mg PO QDAY PRN (Reason: HEEL PAIN) 0RF Rx Instructions: PT UNABLE TO CONFIRM MEDICATIONS. CONFIRMED WITH PT'S LIEUTENANT BALLISTICS AND HER MAR. dextromethorphan polistirex [Robitussin ER] 30 mg/5 mL suspension,extended rel 12 hr 10 ml PO QID PRN (Reason: Cough) 0RF Rx Instructions: PT UNABLE TO CONFIRM MEDICATIONS. CONFIRMED WITH PT'S LIEUTENANT BALLISTICS AND HER MAR. carbamide peroxide [Debrox] 6.5 % drops 10 drop EAR-BOTH BID PRN (Reason: EARWAX REMOVAL) 0RF Rx Instructions: USE 4 DAYS EASH MONTH PRN. ferrous sulfate 325 mg (65 mg iron) tablet 325 mg PO BID 0RF hydrocodone-acetaminophen 5-300 mg tablet 1 tab PO .PRN 0RF cholecalciferol (vitamin D3) 1,250 mcg (50,000 unit) tablet PO .weekly 0RF fluconazole [Diflucan] 200 mg tablet 400 mg PO DAILY 0RF dicyclomine 10 mg capsule 10 mg PO QID PRN0RF lamotrigine [Lamictal] 100 mg tablet 200 mg PO .morning Qty: 60 3RF Rx Instructions: Take two tablet every morning clonazepam [Klonopin] 0.5 mg tablet 0.5 mg PO BID Qty: 60 3RF Rx Instructions: Take one tablet twice per day aripiprazole [Abilify] 20 mg tablet 20 mg PO .bedtime Qty: 30 3RF Rx Instructions: Take one tablet at bedtime cyproheptadine 4 mg tablet 8 mg PO BEDTIME Qty: 60 3RF Rx Instructions: Take two tablets at bedtime Zoloft 100 mg tablet 200 mg PO .morning Qty: 180 2RF Rx Instructions: Take two tablets every morning acetaminophen [Tylenol] 325 mg Tablet 325 mg PO Q4H PRN (Reason: Pain) 0RF Rx Instructions: PT UNABLE TO CONFIRM MEDICATIONS. CONFIRMED WITH PT'S LIEUTENANT BALLISTICS AND HER MAR. Discharge Orders: Discharge ED (Routine); Ordered 01/11/22 Ordered By: Saleem Galeana Referrals: Kendrick Dillon [Primary Care Provider] - Discharge Diet: Advance as tolerated Discharge Activity: Increase activity as tolerated Patient Instructions: Concussion (ED), Fall Prevention (ED) Activity Restrictions/Additional Instructions: Please take your medication as instructed for pain. Come back to the emergency room have any worsening pain elsewhere. Coding Level of Care Code ED Chairman & Co Founder for Tonia Robbins Exam Comprehensive
[2022-01-11 15:39] LABS: Basophils # 0.1 10^3/uL (0.0-0.1); Basophils % 0.6 %; Eosinophils # 0.1 10^3/uL (0.0-0.8); Eosinophils % 0.9 %; Hematocrit 42.7 % (37.0-47.0); Hemoglobin 13.3 g/dL (11.5-15.3); Lymphocytes # 2.6 10^3/uL (0.8-4.8); Lymphocytes % 27.1 %; Mean Corpuscular HGB Conc 31.1 g/dL (30.0-36.0); Mean Corpuscular Hemoglobin 28.4 pg (28.0-34.0); Mean Platelet Volume 11.6 fL (7.4-10.4); Monocytes # 0.5 10^3/uL (0.2-0.9); Monocytes % 4.7 %; Neutrophils # 6.39 10^3/uL (1.8-7.7); Neutrophils % 66.4 %; Nucleated Red Blood Cells % 0 %; Platelet Count 313 10^3/cmm (130-400); Red Blood Count 4.69 10^6/uL (4.1-5.3); Red Cell Distribution Width 13.9 % (12.1-15.1); White Blood Count 9.6 10^3/uL (4.0-10.0)
[2022-01-11 16:08] LABS: INR 0.99 (0.8-1.2); Partial Thromboplastin Time 30.1 SECONDS (23.9-36.7)
[2022-01-11] MEDS: acetaminophen 500 mg Tablet PO (16:17)
[2022-01-11 16:22] LABS: Anion Gap 16.6 (5-19); Blood Urea Nitrogen 15 mg/dL (6-20); Calcium 9.8 mg/dL (8.5-10.5); Carbon Dioxide 21 mmol/L (22-29); Chloride 103 mmol/L (98-107); Glomerular Filtration Rate 78.3 mL/min (90-130); Glucose 157 mg/dL (65-115); Osmolality Calculated 288 mOsm/kg (285-295); Potassium 3.6 mmol/L (3.5-5.1); Sodium 137 mmol/L (136-145)
--- NOTE | 2022-01-11 16:57 | PC.NURSE ---
1600 CT/XR complete. C collar removed, per order. Patient assisted to standing position and walked to BR without difficulty. Patient does related generalized pain but gait is steady. Physician updated 1645. D/C with RX. Assisted to Vehicle Discharge paperwork and RX in hand
== END 2022-01-11 17:04 | disposition home or self-care (01) ==
PROVIDERS: Emergency Provider Emergency Medicine; PCP Family Medicine
DX: R51.9 Headache, unspecified (principal); W18.30XA Fall on same level, unspecified, initial encounter; F17.210 Nicotine dependence, cigarettes, uncomplicated; M25.552 Pain in left hip; M54.6 Pain in thoracic spine; M54.50 Low back pain, unspecified; R10.9 Unspecified abdominal pain; F79 Unspecified intellectual disabilities
CPT/HCPCS: 70450; 71250; 72125; 74176; 80048; 85025; 85610; 85730; 99283

== ENCOUNTER → 2022-01-29 08:23 | Outpatient (BNVA) | payer MEDICARE, MEDICAID, SELFPAY | PROVIDERS: PCP Family Medicine; Visit Provider Nurse Practitioner Psychiatric/Mental Health | DX: F31.4 Bipolar disorder, current episode depressed, severe, without psychotic features (principal); F43.12 Post-traumatic stress disorder, chronic; F70 Mild intellectual disabilities; F17.210 Nicotine dependence, cigarettes, uncomplicated; F41.1 Generalized anxiety disorder; G47.33 Obstructive sleep apnea (adult) (pediatric) | CPT/HCPCS: 99214 ==

== ENCOUNTER → 2022-02-12 08:18 | Outpatient (BNVA) | payer MEDICARE, MEDICAID, SELFPAY | PROVIDERS: PCP Family Medicine; Visit Provider Nurse Practitioner Psychiatric/Mental Health | DX: F31.4 Bipolar disorder, current episode depressed, severe, without psychotic features (principal); F43.12 Post-traumatic stress disorder, chronic; F70 Mild intellectual disabilities; F17.210 Nicotine dependence, cigarettes, uncomplicated; F41.1 Generalized anxiety disorder; G47.33 Obstructive sleep apnea (adult) (pediatric); Z79.899 Other long term (current) drug therapy | CPT/HCPCS: 99215 ==

== ENCOUNTER → 2022-02-14 09:45 | Outpatient (BNVA) | payer MEDICARE, MEDICAID, SELFPAY | PROVIDERS: PCP Family Medicine; Visit Provider Counselor Professional | DX: F31.4 Bipolar disorder, current episode depressed, severe, without psychotic features (principal); F43.12 Post-traumatic stress disorder, chronic; F70 Mild intellectual disabilities; G47.33 Obstructive sleep apnea (adult) (pediatric); F41.1 Generalized anxiety disorder | CPT/HCPCS: 90834 ==

== ENCOUNTER → 2022-02-21 08:58 | Outpatient (BNVA) | payer MEDICARE, MEDICAID, SELFPAY | PROVIDERS: PCP Family Medicine; Visit Provider Counselor Professional | DX: F31.4 Bipolar disorder, current episode depressed, severe, without psychotic features (principal); F43.12 Post-traumatic stress disorder, chronic; F70 Mild intellectual disabilities; G47.33 Obstructive sleep apnea (adult) (pediatric); F41.1 Generalized anxiety disorder; F17.210 Nicotine dependence, cigarettes, uncomplicated | CPT/HCPCS: 90834 ==

== ENCOUNTER → 2022-03-14 09:26 | Outpatient (BNVA) | payer MEDICARE, MEDICAID, SELFPAY | PROVIDERS: PCP Family Medicine; Visit Provider Nurse Practitioner Psychiatric/Mental Health | DX: F43.12 Post-traumatic stress disorder, chronic; F70 Mild intellectual disabilities; F17.210 Nicotine dependence, cigarettes, uncomplicated; G47.33 Obstructive sleep apnea (adult) (pediatric); F41.1 Generalized anxiety disorder; Z79.899 Other long term (current) drug therapy; F31.4 Bipolar disorder, current episode depressed, severe, without psychotic features | CPT/HCPCS: 99214 ==

== ENCOUNTER → 2022-03-15 08:45 | Outpatient (BNVA) | payer MEDICARE, MEDICAID, SELFPAY | PROVIDERS: PCP Family Medicine; Visit Provider Counselor Professional | DX: F31.4 Bipolar disorder, current episode depressed, severe, without psychotic features (principal); F43.12 Post-traumatic stress disorder, chronic; F70 Mild intellectual disabilities; G47.33 Obstructive sleep apnea (adult) (pediatric); F41.1 Generalized anxiety disorder; F17.210 Nicotine dependence, cigarettes, uncomplicated | CPT/HCPCS: 90834 ==

== ENCOUNTER → 2022-03-29 08:46 | Outpatient (BNVA) | payer MEDICARE, MEDICAID, SELFPAY | PROVIDERS: PCP Family Medicine; Visit Provider Counselor Professional | DX: F31.4 Bipolar disorder, current episode depressed, severe, without psychotic features (principal); F43.12 Post-traumatic stress disorder, chronic; F70 Mild intellectual disabilities; G47.33 Obstructive sleep apnea (adult) (pediatric); F41.1 Generalized anxiety disorder | CPT/HCPCS: 90834 ==

== ENCOUNTER 2022-05-17 08:12 | Outpatient (CLI) | payer MEDICARE, MEDICAID, SELFPAY ==
--- NOTE | 2022-05-17 08:18 | MM_ITS ---
WS: [email or web address] Bilateral screening 3D tomosynthesis digital mammogram, 05/17/2022 Clinical Data: SCREENING Comparison: 04/05/2020, 11/13/2018. Findings: The breast parenchymal pattern shows heterogeneous density. No spiculated masses or clustered calcifi cations are seen. There are no secondary signs of carcinoma. MM/[place] [id number] Impression: 1. Negative bilateral mammogram unchanged. 2. Recommend annual screening mammograms. BIRADS: 1-Negative FOLLOW UP: 1 Year Follow-up The CAD soil checker was used.
== END 2022-05-17 08:13 | disposition home or self-care (01) ==
LOC: RAD 08:12
PROVIDERS: PCP Family Medicine; Visit Provider Family Medicine
DX: Z12.31 Encounter for screening mammogram for malignant neoplasm of breast (principal)
CPT/HCPCS: 77063; 77067

== ENCOUNTER 2022-06-13 13:03 | Oncology outpatient (recurring) (ONCR) | payer MEDICARE, MEDICAID, SELFPAY ==
[2022-06-13 13:34] LABS: Basophils # 0.1 10^3/uL (0.0-0.1); Basophils % 0.6 %; Eosinophils # 0.1 10^3/uL (0.0-0.8); Eosinophils % 1.8 %; Hematocrit 43.9 % (37.0-47.0); Hemoglobin 14.1 g/dL (11.5-15.3); Lymphocytes # 3.1 10^3/uL (0.8-4.8); Lymphocytes % 39.3 %; Mean Corpuscular HGB Conc 32.1 g/dL (30.0-36.0); Mean Corpuscular Hemoglobin 29.1 pg (28.0-34.0); Mean Corpuscular Volume 90.5 fl (81-99); Mean Platelet Volume 10.8 fL (7.4-10.4); Monocytes # 0.5 10^3/uL (0.2-0.9); Monocytes % 6.5 %; Neutrophils # 4.07 10^3/uL (1.8-7.7); Neutrophils % 51.5 %; Nucleated Red Blood Cells % 0 %; Platelet Count 309 10^3/cmm (130-400); Red Blood Count 4.85 10^6/uL (4.1-5.3); Red Cell Distribution Width 13.7 % (12.1-15.1); White Blood Count 7.9 10^3/uL (4.0-10.0)
[2022-06-13 13:53] LABS: Ferritin 162 ng/mL (15-150); Iron 43 ug/dL (37-145); Percent Saturation 18.9 % (20-50); Total Iron Binding Capacity 227 mcg/dl; Unsaturated Iron Binding 184 ug/dL (112-347)
== END 2022-06-29 23:59 | disposition home or self-care (01) ==
PROVIDERS: PCP Family Medicine; Visit Provider Internal Medicine Hematology & Oncology
DX: D75.839 Thrombocytosis, unspecified (principal); F17.210 Nicotine dependence, cigarettes, uncomplicated; K29.60 Other gastritis without bleeding; Z79.899 Other long term (current) drug therapy
CPT/HCPCS: 36415; 82728; 83540; 83550; 85025; 99214

== ENCOUNTER → 2022-08-10 08:36 | Outpatient (BNVA) | payer MEDICARE, MEDICAID, SELFPAY | PROVIDERS: PCP Family Medicine; Visit Provider Podiatrist Foot & Ankle Surgery | DX: Q82.8 Other specified congenital malformations of skin (principal) | CPT/HCPCS: 17110; 99203 ==

== ENCOUNTER → 2022-08-21 14:58 | Outpatient (BNVA) | payer MEDICARE, MEDICAID, SELFPAY | PROVIDERS: PCP Family Medicine; Visit Provider Podiatrist Foot & Ankle Surgery | DX: Q82.8 Other specified congenital malformations of skin (principal) | CPT/HCPCS: 17110; 99213 ==

== ENCOUNTER → 2022-12-12 14:18 | Outpatient (BNVA) | payer MEDICARE, MEDICAID, SELFPAY | PROVIDERS: PCP Family Medicine; Visit Provider Podiatrist Foot & Ankle Surgery | DX: I73.9 Peripheral vascular disease, unspecified (principal); Q82.8 Other specified congenital malformations of skin; L90.9 Atrophic disorder of skin, unspecified | CPT/HCPCS: 11055; 99213 ==

== ENCOUNTER → 2023-01-25 08:31 | Outpatient (BNVA) | payer MEDICARE, MEDICAID, SELFPAY | PROVIDERS: PCP Family Medicine; Visit Provider Podiatrist Foot & Ankle Surgery | DX: Q82.8 Other specified congenital malformations of skin (principal); I73.9 Peripheral vascular disease, unspecified; L90.9 Atrophic disorder of skin, unspecified | CPT/HCPCS: 99213 ==

== ENCOUNTER 2023-06-07 09:15 | Outpatient (CLI) | payer MEDICARE, MEDICAID, SELFPAY ==
--- NOTE | 2023-06-07 09:33 | MM_ITS ---
WS: [id number] BILATERAL SCREENING DIGITAL TOMOSYNTHESIS MAMMOGRAM WITH CAD HISTORY: SCREENING COMPARISON: 05/17/2022, 04/05/2020 and 11/13/2018 Bilateral CC and MLO views with tomosynthesis and synthetic mammography submitted. Computer aided det ection analyzed. Breast composition: The breasts are heterogeneously dense, which may obscure small masses. No suspici ous masses, microcalcifications or architectural distortion. Numerous bilateral breast nodules have b een present on multiple prior examinations. IMPRESSION: MM/[place] [id number] BI-RADS: 2-Benign FOLLOW UP: 1 Year Follow-up
== END 2023-06-07 09:16 | disposition home or self-care (01) ==
PROVIDERS: PCP Family Medicine; Visit Provider Family Medicine
DX: Z12.31 Encounter for screening mammogram for malignant neoplasm of breast (principal)
CPT/HCPCS: 77063; 77067

== ENCOUNTER → 2023-11-25 08:30 | Outpatient (BNVA) | payer MEDICARE, MEDICAID, OTHER, SELFPAY | PROVIDERS: PCP Family Medicine; Visit Provider Nurse Practitioner Psychiatric/Mental Health | DX: Z79.899 Other long term (current) drug therapy (principal) | CPT/HCPCS: 80053; 80061; 83036 ==

== ENCOUNTER → 2024-01-23 15:03 | Outpatient (BNVA) | payer MEDICARE, MEDICAID, SELFPAY | PROVIDERS: PCP Family Medicine; Referring Provider Family Medicine; Visit Provider Nurse Practitioner Women's Health | DX: Z12.4 Encounter for screening for malignant neoplasm of cervix (principal) | CPT/HCPCS: 87624 ==

== ENCOUNTER → 2024-01-28 15:14 | Outpatient (BNVA) | payer MEDICARE, MEDICAID, SELFPAY | PROVIDERS: PCP Family Medicine; Visit Provider Podiatrist Foot & Ankle Surgery | DX: Q82.8 Other specified congenital malformations of skin; G62.9 Polyneuropathy, unspecified; I73.9 Peripheral vascular disease, unspecified; L90.9 Atrophic disorder of skin, unspecified; E11.42 Type 2 diabetes mellitus with diabetic polyneuropathy | CPT/HCPCS: 99213 ==

== ENCOUNTER → 2024-03-31 15:07 | Outpatient (BNVA) | payer MEDICARE, MEDICAID, SELFPAY | PROVIDERS: PCP Family Medicine; Visit Provider Podiatrist Foot & Ankle Surgery | DX: Q82.8 Other specified congenital malformations of skin (principal); G62.9 Polyneuropathy, unspecified; I73.9 Peripheral vascular disease, unspecified; L90.9 Atrophic disorder of skin, unspecified; E11.42 Type 2 diabetes mellitus with diabetic polyneuropathy; L60.3 Nail dystrophy | CPT/HCPCS: 11055; 11721 ==

== ENCOUNTER 2024-05-06 21:12 | Emergency (ER) | payer MEDICARE, MEDICAID, SELFPAY ==
--- NOTE | 2024-05-06 21:20 | ED_ITS ---
HPI - Allergic Reaction General: Chief complaint: Allergic Reaction Stated complaint: allergic reaction Time Seen by Provider: 05/06/24 21:15 History of Present Illness: HPI narrative: 43-year-old female comes in today for co mplaints of allergic reaction to coconut. Patient ate something and then about a minute later felt uncomfortable and then read the ingredients of the meal that she was eating and noted that it had coconut in it. 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 Patient then had hives and some difficulty breathing. Patient was medicated by EMS with 50 of Benadryl and 0.3 of epinephrine. Review of Systems General: Reports: 10 or more systems reviewed and unremarkable except in HPI and below PFSH ED PFSH: Medical History No pertinent past medical history neghx: htn,thyroid,dvt/pe PCP: Dr. Dillon Type 2 diabetes mellitus (~12/2023) recent dx; attempting diet control; followed by [facility] Thrombocytosis Iron deficiency anemia was followed by by [facility]-- in 2021 she was taken off iron tablets Psychiatric care Generalized anxiety disorder Obstructive sleep apnea Mild intellectual disabilities Chronic post-traumatic stress disorder Bipolar disorder, current episode depressed, severe, without psychotic features Surgical History History of hysteroscopy (~2009) Performed at [facility] in [place] -- ESSURE Status post colonoscopy (07/06/21) H/O esophagogastroduodenoscopy (07/06/21) History of surgery bilateral leg surgery (1985) History of tubal ligation 1996 Family History Other Adopted Social History Smoking and tobacco/nicotine status: unknown if used tobacco/nicotine Physical Exam Const: COMMON NORMALS: alert HENMT: COMMON NORMALS: normocephalic HEAD & SCALP: normocephalic MOUTH: Normal oral and palatal mucosa present Neck/C-Spine: COMMON NORMALS: full ROM Chest: COMMONS NORMALS: normal inspection of the chest Resp: COMMON NORMALS: normal respiratory effort GI: COMMON NORMALS: Soft to palpation and non-tender PALPATION: Yes Soft to palpation Back/Pelvis: COMMON NORMALS: thoracic and lumbar spine normal to inspection Extremity: COMMON NORMALS: full ROM Neuro: SENSORIUM/ORIENTATION: Yes alert Skin: COMMON NORMALS: turgor normal GENERAL SKIN EXAM: turgor normal Course Vital Signs: Vital signs: Vital Signs Temperature 98.0 F 05/06/24 21:24 Pulse Rate 81 05/06/24 23:00 Respiratory Rate 18 05/06/24 23:00 Blood Pressure 116/62 05/06/24 23:00 Pulse Oximetry 99 05/06/24 23:00 Oxygen Delivery Me thod Room Air 05/06/24 23:00 MDM - Allergic Reaction Medical Decision Making 43-year-old female comes in today with exposure to coconut, unknown allergy to patient, with hives and increased respiratory difficulty. Patient had been given epinephrine and Benadryl and route to the ER patient has significant improvement of breathing difficulty and hives. Vital signs normal except for some elevated blood pressure. Differential diagnosis includes allergic reaction, anaphylaxis, asthma, anxiety. Patient was monitored for 2 hours with no recurrence of symptoms. Patient was given famotidine and dexamethasone. Patient was discharged to caregiver and return back to assisted living facility. No radiology studies performed this visit Discharge Plan Discharge Patient Disposition: Home Clinical Impression: Allergic reaction Qualifiers: Encounter type: initial encounter Qualified Code(s): T78.40XA - Allergy, unspecified, initial encounter Condition: Stable Prescriptions: New epinephrine 0.3 mg/0.3 mL auto-injector 0.3 mg IM Q10M PRN (Reason: hypersensitivity reaction) Qty: 2 0RF Rx Instructions: for 2 doses No Action bismuth subsalicylate [Pepto-Bismol] 262 mg/15 mL suspension 524 mg PO ONCE PRN (Reason: diarrhea) Rx Instructions: PT UNABLE TO CONFIRM MEDICATIONS. CONFIRMED WITH PT'S CHEMICAL PROCESSING EQUIPMENT REPAIRER AND HER MAR. loratadine [Allergy Relief (loratadine)] 10 mg tablet 10 mg PO QDAY Rx Instructions: PT UNABLE TO CONFIRM MEDICATIONS. CONFIRMED WITH PT'S CHEMICAL PROCESSING EQUIPMENT REPAIRER AND HER MAR. omeprazole 40 mg capsule,delayed release(DR/EC) 40 mg PO DAILY Rx Instructions: PT UNABLE TO CONFIRM MEDICATIONS. CONFIRMED WITH PT'S CHEMICAL PROCESSING EQUIPMENT REPAIRER AND HER MAR. dextromethorphan polistirex [Robitussin ER] 30 mg/5 mL suspension,extended rel 12 hr 10 ml PO QID PRN (Reason: Cough) Rx Instructions: PT UNABLE TO CONFIRM MEDICATIONS. CONFIRMED WITH PT'S CHEMICAL PROCESSING EQUIPMENT REPAIRER AND HER MAR. carbamide peroxide [Debrox] 6.5 % drops 10 drop EAR-BOTH BID PRN (Reason: EARWAX REMOVAL) Rx Instructions: USE 4 DAYS EASH MONTH PRN. cholecalciferol (vitamin D3) 1,250 mcg (50,000 unit) tablet PO .weekly clonazepam [Klonopin] 0.5 mg tablet 0.5 mg PO TID Qty: 90 4RF Rx Instructions: Take one tablet three times per day cyproheptadine 4 mg tablet 8 mg PO BEDTIME Qty: 60 6RF Rx Instructions: Take two tablets at bedtime Zoloft 100 mg tablet 200 mg PO .morning Qty: 60 6RF Rx Instructions: Take two tablets every morning lamotrigine [Lamictal] 200 mg tablet 200 mg PO .morning Qty: 30 6RF Rx Instructions: Take one tablet every morning aripiprazole [Abilify] 30 mg tablet 30 mg PO BEDTIME Qty: 30 4RF Rx Instructions: Take one tablet at bedtime haloperidol 5 mg tablet 5 mg PO BID PRN (Reason: severe anxiety/agitation) Qty: 60 3RF Rx Instructions: May take one tablet twice per day as needed for severe anxiety/agitation hydroxychloroquine [Plaquenil] 200 mg tablet 200 mg PO DAILY lovastatin 20 mg tablet 20 mg PO DAILY Oyster Shell Calcium-Vit D3 500 mg-5 mcg (200 unit) powder in packet 1 ea PO DAILY bimatoprost 0.01 % drops 1 drp ophthalmic (eye) .HS Rx Instructions: 1 Drop in each eye at bedtime for lower eye pressure. (DME) diabetic shoes with 3 inserts See Rx Instructions .Route .MEDSUPPLY Qty: 1 0RF Rx Instructions: As directed to the shoe tobias gabapentin 100 mg capsule 200 mg PO DAILY acetaminophen [Tylenol] 325 mg tablet 650 mg PO Q4H PRN (Reason: Pain) Rx Instructions: PT UNABLE TO CONFIRM MEDICATIONS. CONFIRMED WITH PT'S CHEMICAL PROCESSING EQUIPMENT REPAIRER AND HER MAR. Discharge Orders: Discharge ED (Routine); Ordered 05/06/24 Ordered By: Wayne Valencia Referrals: Kendrick Dillon [Primary Care Provider] - Discharge Diet: Usual diet Discharge Activity: Increase activity as tolerated Patient Instructions: Food Allergy (ED) Activity Restrictions/Additional Instructions: Avoid coconut. Follow-up with primary care for further instructions. Return to ED for new concerns. Coding Level of Care Code ED Batch Plant Operator for Tonia Robbins
[2024-05-06 21:24] VITALS: BP 164/138; PULSE 87; RESP 18; TEMP 36.7; O2SAT 97
[2024-05-06 21:28] VITALS: BP 124/44; PULSE 85; O2SAT 97
[2024-05-06] MEDS: dexamethasone 10 mg/mL INJ IVP (21:41)
[2024-05-06] MEDS: famotidine 20 mg/2 mL INJ 40 MG IVP (21:41)
--- NOTE | 2024-05-06 21:53 | PC.NURSE ---
WHEN PT GOT UP TO USE THE BATHROOM, THE EXTRA BEDDING FROM EMS COT WAS REMOVED FROM THE BED. TO DO THIS, THE PT'S CHANGE PURSE WAS MOVED OFF EXTRA BLANKETS ONTO THE REMAINING BEDDING. CAREGIVER WAS MADE VISUALLY AWARE OF THE MOVE AND TOLD PT.
[2024-05-06 21:58] VITALS: BP 119/67; PULSE 84; O2SAT 96
--- NOTE | 2024-05-06 21:59 | PC.NURSE ---
WARM BLANKETS PROVIDED TO PT AND CAREGIVER PER REQUEST
--- NOTE | 2024-05-06 22:01 | PC.NURSE ---
WATER PROVIDED TO PT AND CAREGIVER PER PROVIDER APPROVAL.
[2024-05-06 22:28] VITALS: BP 125/59; PULSE 83; O2SAT 94
[2024-05-06 23:00] VITALS: BP 116/62; PULSE 81; RESP 18; O2SAT 99
== END 2024-05-06 23:13 | disposition home or self-care (01) ==
PROVIDERS: Emergency Provider Nurse Practitioner Family; PCP Family Medicine
DX: T78.1XXA Other adverse food reactions, not elsewhere classified, initial encounter (principal); E11.9 Type 2 diabetes mellitus without complications; X58.XXXA Exposure to other specified factors, initial encounter
CPT/HCPCS: 96374; 96375; 99284; J1100; J3490

== ENCOUNTER → 2024-06-05 08:10 | Outpatient (BNVA) | payer MEDICARE, MEDICAID, SELFPAY | PROVIDERS: PCP Family Medicine; Visit Provider Podiatrist Foot & Ankle Surgery | DX: L60.3 Nail dystrophy (principal); Q82.8 Other specified congenital malformations of skin; G62.9 Polyneuropathy, unspecified; I73.9 Peripheral vascular disease, unspecified; L90.9 Atrophic disorder of skin, unspecified; E11.42 Type 2 diabetes mellitus with diabetic polyneuropathy | CPT/HCPCS: 11055; 11721 ==

== ENCOUNTER 2024-06-09 12:51 | Emergency (ER) | payer OTHER, SELFPAY ==
[2024-06-09 12:59] VITALS: BP 126/79; PULSE 102; RESP 16; TEMP 36.8; O2SAT 94; BMI 30.5
--- NOTE | 2024-06-09 14:46 | CT_ITS ---
WS: [id number] CT CERVICAL TRAUMA TECHNIQUE: Noncontrast CT of the cervical spine with coronal and sagittal reformatted images. CLINICAL INFORMATION: trauma COMPARISON: 2021 DLP: 1854.[address] scans at [facility] use at least one of these dose optimization techniques: automated e xposure control; mA and/or kV adjustment per patient size (includes targeted exams where dose is matc hed to clinical indication); or iterative reconstruction. FINDINGS: Straightening of the normal cervical lordosis with ankylosis throughout the cervical spine. Grade 1 a nterolisthesis C6 on C7 is unchanged. 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 Normal prevertebral soft tissues. Mastoids air cells are well aerated. Nodular thyroid similar to previous. CT/CT cervical spin wo con* [id number] IMPRESSION: No evidence of acute fracture or dislocation.
--- NOTE | 2024-06-09 14:46 | CT_ITS ---
WS: [id number] CT HEAD TECHNIQUE: Noncontrast CT of the head obtained from the skullbase to the vertex. CLINICAL INFORMATION: trauma COMPARISON: 2021 DLP: 1854.[address] scans at [facility] use at least one of these dose optimization techniques: automated e xposure control; mA and/or kV adjustment per patient size (includes targeted exams where dose is matc hed to clinical indication); or iterative reconstruction. FINDINGS: No evidence of intracranial hemorrhage or mass effect. Ventricular system and basal cisterns are tenorio nt. No extra-axial fluid collections. No evidence of mass or mass effect. Paranasal sinuses and mastoid air cells are well aerated. .Normal visualized soft tissues. CT/CT head wo con* [id number] IMPRESSION: 1. No evidence of intracranial hemorrhage or mass effect. 2. No acute intracranial findings.
--- NOTE | 2024-06-09 14:53 | XRR_ITS ---
PROCEDURE INFORMATION: Exam: XR Left Elbow Exam date and time: 06/09/2024 3:04 PM Age: 43 years old Clinical indication: Injury or trauma; Fall; Blunt trauma (contusions or hematomas); Elbow; Left; Additional info: Elbow pain TECHNIQUE: Imaging protocol: Radiologic exam of the left elbow. Views: 3 or more views. COMPARISON: No relevant prior studies available. FINDINGS: Bones/joints: No acute fracture or malalignment. No worrisome lytic or blastic osseous lesion. Small enthesophyte at the common extensor tendon origin. Small erosion projecting over the posterior olecranon may be positional versus related to triceps attachment. No distinct enthesophyte. Joint spaces are preserved. No joint effusion. No traumatic soft tissue abnormality. Soft tissues: See Bones/joints finding. XR/XR elbow LT min 3V* [id number] IMPRESSION: No acute fracture or malaligment.
[2024-06-09 15:17] VITALS: BP 128/78; PULSE 79; RESP 18; O2SAT 94
--- NOTE | 2024-06-09 15:38 | XR_ITS ---
WS: [id number] XR wrist LT min 3V* [id number] REASON FOR EXAM: trauma FINDINGS: There is a deformity of the distal radial metaphysis and the articular surface of the radius. These f indings may be due to old healed fracture. Configuration of the distal left radius is similar to an e xamination of 02/11/2022. No acute fracture or focal bone lesion is identified. There is mild narrowing of the radiocarpal joint laterally. 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 XR/XR wrist LT min 3V* [id number] IMPRESSION: Chronic changes with no acute abnormality identified.
--- NOTE | 2024-06-09 15:38 | ED_ITS ---
HPI - Fall General: Chief Complaint: Fall Stated Complaint: fall (wc) Time Seen by Provider: 06/09/24 13:47 History of Present Illness: 43-year-old female presents emergency ro om after a fall at work she hit her head and her left elbow there is no loss of consciousness. She denies any other injuries she has full range of motion of the left wrist and left elbow she has a small abrasion over the left elbow there is no loss consciousness no nausea or vomiting. Associated symptoms-after fall: Denies abdominal pain, chest pain or neck pain Related Data Home Medications Medication Instructions Recorded Confirmed bismuth subsalicylate 262 mg/15 mL 524 mg PO ONCE PRN diarrhea 10/20/19 06/05/24 oral suspension (Pepto-Bismol) carbamide peroxide 6.5 % ear drops 10 drop otic (ear) BID PRN EARWAX 10/20/19 06/05/24 (Debrox) REMOVAL dextromethorphan polistirex 30 10 ml PO QID PRN Cough 10/20/19 06/05/24 mg/5 mL oral susp ext.release 12hr (Robitussin ER) loratadine 10 mg tablet (Allergy 10 mg PO QDAY 10/20/19 06/05/24 Relief (loratadine)) omeprazole 40 mg capsule,delayed 40 mg PO DAILY 10/20/19 06/05/24 release cholecalciferol (vitamin D3) 1,250 PO .weekly 08/09/21 06/05/24 mcg (50,000 unit) tablet lovastatin 20 mg tablet 20 mg PO DAILY 03/14/22 06/05/24 calcium carbonate 500 mg-vitamin 1 ea PO DAILY 06/13/22 06/05/24 D3 5 mcg (200 unit) oral powder pack (Oyster Shell Calcium) bimatoprost 0.01 % eye drops 1 drp ophthalmic (eye) .HS 11/07/22 06/05/24 acetaminophen 325 mg tablet 650 mg PO Q4H PRN Pain 08/27/23 06/05/24 (Tylenol) hydroxychloroquine 200 mg tablet 200 mg PO DAILY 01/23/24 06/05/24 (Plaquenil) gabapentin 100 mg capsule 200 mg PO DAILY 03/27/24 06/05/24 Previous Rx's Medication Instructions Recorded diabetic shoes with 3 inserts #1 ea 01/28/24 aripiprazole 30 mg tablet (Abilify) 30 mg PO BEDTIME #30 tabs 02/21/24 clonazepam 0.5 mg tablet (Klonopin) 0.5 mg PO TID #90 tabs 02/21/24 cyproheptadine 4 mg tablet 8 mg (2 x 4 mg) PO BEDTIME #60 tabs 02/21/24 haloperidol 5 mg tablet 5 mg PO BID PRN severe 02/21/24 anxiety/agitation #60 tabs lamotrigine 200 mg tablet 200 mg PO .morning #30 tabs 02/21/24 (Lamictal) sertraline 100 mg tablet (Zoloft) 200 mg (2 x 100 mg) PO .morning 02/21/24 #60 tabs epinephrine 0.3 mg/0.3 mL 0.3 mg (0.3 mL) IM Q10M PRN 05/06/24 injection, auto-injector hypersensitivity reaction #2 ea Allergies Allergy/AdvReac Type Severity Reaction Status Date / Time coconut Allergy Severe ALGY-Difficulty Verified 06/05/24 08:18 Breathing ziprasidone [From Geodon] Allergy Unknown ADR-Halluci Verified 06/05/24 08:18 nating divalproex sodium Allergy ADR-Halluci Verified 06/05/24 08:18 [From Depakote] nating Review of Systems Const: Denies: fever(s) or chills Card: Denies: chest pain Resp: Denies: dyspnea GI: Denies: abdominal pain : Denies: dysuria, urinary frequency or urinary urgency Musc: Denies: neck pain or back pain Skin/Breast: Denies: rash PFSH ED PFSH: Medical History No pertinent past medical history neghx: htn,thyroid,dvt/pe PCP: Dr. Dillon Type 2 diabetes mellitus (~12/2023) recent dx; attempting diet control; followed by [facility] Thrombocytosis Iron deficiency anemia was followed by by Gume-- in 2021 she was taken off iron tablets Psychiatric care Generalized anxiety disorder Obstructive sleep apnea Mild intellectual disabilities Chronic post-traumatic stress disorder Bipolar disorder, current episode depressed, severe, without psychotic features Surgical History History of hysteroscopy (~2009) Performed at [facility] in [place] -- ESSURE Status post colonoscopy (07/06/21) H/O esophagogastroduodenoscopy (07/06/21) History of surgery bilateral leg surgery (1985) History of tubal ligation 1996 Family History Other Adopted Social History Smoking and tobacco/nicotine status: unknown if used tobacco/nicotine Physical Exam Const: COMMON NORMALS: no acute distress GENERAL APPEARANCE: cooperative and comfortable ORIENTATION/CONSCIOUSNESS: Yes awake, Yes oriented to person, Yes oriented to place and Yes oriented to time HENMT: COMMON NORMALS: normocephalic, atraumatic and hearing grossly normal bilaterally HEAD & SCALP: normocephalic and atraumatic Resp: COMMON NORMALS: normal respiratory effort, No retractions, No use of accessory muscles and clear to auscultation bilaterally AUSCULTATION: clear to auscultation bilaterally Cardio: COMMON NORMALS: regular rate, regular rhythm and No murmurs present (Cardio) RATE: regular rate RHYTHM: regular rhythm GI: COMMON NORMALS: Soft to palpation and No hepatosplenomegaly present AUSCULTATION: Yes normoactive bowel sounds PALPATION: Yes Soft to palpation, No Tenderness to palpation present (GI), No Guarding due to palpation present (GI) and Yes No hepatosplenomegaly present Extremity: COMMON NORMALS: normal to inspection, capillary refill normal, no clubbing, cyanosis or edema, no calf tenderness and no pedal edema Neuro: SENSORIUM/ORIENTATION: Yes oriented to person, Yes oriented to place and Yes oriented to time Skin: COMMON NORMALS: no rashes or lesions noted GENERAL SKIN EXAM: no rashes or lesions noted Course Vital Signs: Vital signs: Vital Signs Temperature 98.2 F 06/09/24 12:59 Pulse Rate 65 06/09/24 16:02 Respiratory Rate 18 06/09/24 15:17 Blood Pressure 152/91 06/09/24 16:02 Pulse Oximetry 97 06/09/24 16:02 Oxygen Delivery Me thod Room Air 06/09/24 15:17 MDM - Fall Medical Decision Making No acute findings on imaging able to move all joints without significant discomfort. CT head negative. Will discharge patient home with anti- inflammatories Tylenol [id number] to use as needed follow-up with primary care as needed. Lab Data Radiology Impressions Cervical Spine CT 06/09/24 14:46 IMPRESSION: No evidence of acute fracture or dislocation. Head CT 06/09/24 14:46 IMPRESSION: 1. No evidence of intracranial hemorrhage or mass effect. 2. No acute intracranial findings. Elbow X-Ray 06/09/24 14:53 IMPRESSION: No acute fracture or malaligment. Wrist X-Ray 06/09/24 15:38 IMPRESSION: Chronic changes with no acute abnormality identified. All radiology interpretation(s) finalized by discharge Discharge Plan Discharge Patient Disposition: Home Clinical Impression: Left wrist sprain, Fall Condition: Stable Prescriptions: No Action bismuth subsalicylate [Pepto-Bismol] 262 mg/15 mL suspension 524 mg PO ONCE PRN (Reason: diarrhea) Rx Instructions: PT UNABLE TO CONFIRM MEDICATIONS. CONFIRMED WITH PT'S CERTIFIED ACTIVITIES DIRECTOR AND HER MAR. loratadine [Allergy Relief (loratadine)] 10 mg tablet 10 mg PO QDAY Rx Instructions: PT UNABLE TO CONFIRM MEDICATIONS. CONFIRMED WITH PT'S CERTIFIED ACTIVITIES DIRECTOR AND HER MAR. omeprazole 40 mg capsule,delayed release(DR/EC) 40 mg PO DAILY Rx Instructions: PT UNABLE TO CONFIRM MEDICATIONS. CONFIRMED WITH PT'S CERTIFIED ACTIVITIES DIRECTOR AND HER MAR. dextromethorphan polistirex [Robitussin ER] 30 mg/5 mL suspension,extended rel 12 hr 10 ml PO QID PRN (Reason: Cough) Rx Instructions: PT UNABLE TO CONFIRM MEDICATIONS. CONFIRMED WITH PT'S CERTIFIED ACTIVITIES DIRECTOR AND HER MAR. carbamide peroxide [Debrox] 6.5 % drops 10 drop EAR-BOTH BID PRN (Reason: EARWAX REMOVAL) Rx Instructions: USE 4 DAYS EASH MONTH PRN. cholecalciferol (vitamin D3) 1,250 mcg (50,000 unit) tablet PO .weekly clonazepam [Klonopin] 0.5 mg tablet 0.5 mg PO TID Qty: 90 4RF Rx Instructions: Take one tablet three times per day cyproheptadine 4 mg tablet 8 mg PO BEDTIME Qty: 60 6RF Rx Instructions: Take two tablets at bedtime Zoloft 100 mg tablet 200 mg PO .morning Qty: 60 6RF Rx Instructions: Take two tablets every morning lamotrigine [Lamictal] 200 mg tablet 200 mg PO .morning Qty: 30 6RF Rx Instructions: Take one tablet every morning aripiprazole [Abilify] 30 mg tablet 30 mg PO BEDTIME Qty: 30 4RF Rx Instructions: Take one tablet at bedtime haloperidol 5 mg tablet 5 mg PO BID PRN (Reason: severe anxiety/agitation) Qty: 60 3RF Rx Instructions: May take one tablet twice per day as needed for severe anxiety/agitation hydroxychloroquine [Plaquenil] 200 mg tablet 200 mg PO DAILY lovastatin 20 mg tablet 20 mg PO DAILY Oyster Shell Calcium-Vit D3 500 mg-5 mcg (200 unit) powder in packet 1 ea PO DAILY bimatoprost 0.01 % drops 1 drp ophthalmic (eye) .HS Rx Instructions: 1 Drop in each eye at bedtime for lower eye pressure. (DME) diabetic shoes with 3 inserts See Rx Instructions .Route .MEDSUPPLY Qty: 1 0RF Rx Instructions: As directed to the shoe tobias gabapentin 100 mg capsule 200 mg PO DAILY acetaminophen [Tylenol] 325 mg tablet 650 mg PO Q4H PRN (Reason: Pain) Rx Instructions: PT UNABLE TO CONFIRM MEDICATIONS. CONFIRMED WITH PT'S CERTIFIED ACTIVITIES DIRECTOR AND HER MAR. epinephrine 0.3 mg/0.3 mL auto-injector 0.3 mg IM Q10M PRN (Reason: hypersensitivity reaction) Qty: 2 0RF Rx Instructions: for 2 doses Discharge Orders: Discharge ED (Routine); Ordered 06/09/24 Ordered By: Bernardo Cameron Referrals: Kendrick Dillon [Primary Care Provider] - Discharge Diet: Usual diet Discharge Activity: Resume usual activity Patient Instructions: Opioid Safety, Pain Management Activity Restrictions/Additional Instructions: Thank you for choosing [facility] for your healthcare needs today. It is very important that you follow up as instructed or that you return to the Emergency Department should you have concerns or if your condition changes or worsens in any way. You were seen today after a fall CT of your head and x-rays of your left elbow and wrist were negative. You can use ice or ibuprofen or Tylenol as needed for comfort follow-up with your primary care doctor as needed Stand Alone Forms: Work/School Release Coding Level of Care Code ED Inpatient Services Rn for Tonia Robbins
[2024-06-09 16:02] VITALS: BP 152/91; PULSE 65; O2SAT 97
== END 2024-06-09 16:04 | disposition home or self-care (01) ==
PROVIDERS: Emergency Provider Family Medicine; PCP Family Medicine
DX: S63.502A Unspecified sprain of left wrist, initial encounter (principal); E11.9 Type 2 diabetes mellitus without complications; W19.XXXA Unspecified fall, initial encounter; Y99.0 Civilian activity done for income or pay; S50.312A Abrasion of left elbow, initial encounter
CPT/HCPCS: 70450; 72125; 73080; 73110; 99284

== ENCOUNTER 2024-06-12 13:54 | Outpatient (CLI) | payer MEDICARE, MEDICAID, SELFPAY ==
--- NOTE | 2024-06-12 13:59 | MM_ITS ---
WS: [id number] BILATERAL 3D TOMOSYNTHESIS DIGITAL SCREENING MAMMOGRAPHY WITH CAD CLINICAL INFORMATION: SCREENING HISTORY: Screening mammogram. No current complaints. COMPARISON: 2022 TECHNIQUE: Bilateral CC and MLO views. FINDINGS: The breasts are composed of heterogeneous fibroglandular density tissue, which can limit the detectio n of small underlying mass lesions. No suspicious mass, asymmetry, calcifications, or architectural d istortion. No evidence of malignancy. Numerous bilateral breast nodules stable in appearance over mul tiple prior examinations MM/MM [facility] tomosynthesis [id number] IMPRESSION: DENSITY:The breasts are heterogeneously dense, which may obscure small masses. BI-RADS: 2 - Benign FOLLOW UP: 1 Year Follow-up Recommend return to annual screening mammography.
== END 2024-06-12 13:55 | disposition home or self-care (01) ==
LOC: RAD 13:54
PROVIDERS: PCP Family Medicine; Visit Provider Family Medicine
DX: Z12.31 Encounter for screening mammogram for malignant neoplasm of breast (principal)
CPT/HCPCS: 77063; 77067

== ENCOUNTER → 2024-08-10 14:15 | Outpatient (BNVA) | payer MEDICARE, MEDICAID, OTHER, SELFPAY | PROVIDERS: PCP Family Medicine; Visit Provider Podiatrist Foot & Ankle Surgery | DX: L60.3 Nail dystrophy (principal); Q82.8 Other specified congenital malformations of skin; G62.9 Polyneuropathy, unspecified; I73.9 Peripheral vascular disease, unspecified; L90.9 Atrophic disorder of skin, unspecified; E11.42 Type 2 diabetes mellitus with diabetic polyneuropathy | CPT/HCPCS: 11056; 11721 ==

== ENCOUNTER → 2024-10-13 14:03 | Outpatient (BNVA) | payer MEDICARE, MEDICAID, SELFPAY | PROVIDERS: PCP Family Medicine; Visit Provider Podiatrist Foot & Ankle Surgery | DX: L60.3 Nail dystrophy (principal); Q82.8 Other specified congenital malformations of skin; G62.9 Polyneuropathy, unspecified; M79.672 Pain in left foot; I73.9 Peripheral vascular disease, unspecified; L90.9 Atrophic disorder of skin, unspecified; E11.42 Type 2 diabetes mellitus with diabetic polyneuropathy | CPT/HCPCS: 11057; 11721 ==

== ENCOUNTER → 2025-01-13 13:55 | Outpatient (BNVA) | payer MEDICARE, MEDICAID, OTHER, SELFPAY | PROVIDERS: PCP Family Medicine; Visit Provider Podiatrist Foot & Ankle Surgery | DX: E11.42 Type 2 diabetes mellitus with diabetic polyneuropathy (principal); L60.3 Nail dystrophy; L84 Corns and callosities; Q82.8 Other specified congenital malformations of skin; G62.9 Polyneuropathy, unspecified; M79.672 Pain in left foot; I73.9 Peripheral vascular disease, unspecified; L90.9 Atrophic disorder of skin, unspecified | CPT/HCPCS: 11056; 11721 ==

== ENCOUNTER → 2025-05-05 14:34 | Outpatient (BNVA) | payer MEDICARE, MEDICAID, SELFPAY | PROVIDERS: PCP Family Medicine; Visit Provider Podiatrist Foot & Ankle Surgery | DX: E11.42 Type 2 diabetes mellitus with diabetic polyneuropathy (principal); L60.3 Nail dystrophy; Q82.8 Other specified congenital malformations of skin; G62.9 Polyneuropathy, unspecified; M79.671 Pain in right foot; M79.672 Pain in left foot; I73.9 Peripheral vascular disease, unspecified; L90.9 Atrophic disorder of skin, unspecified; M77.31 Calcaneal spur, right foot | CPT/HCPCS: 11055; 11721; 73630; 99214 ==

== ENCOUNTER → 2025-06-24 09:48 | Outpatient (BNVA) | payer MEDICARE, MEDICAID, SELFPAY | PROVIDERS: PCP Family Medicine; Visit Provider Podiatrist Foot & Ankle Surgery | DX: E11.42 Type 2 diabetes mellitus with diabetic polyneuropathy (principal); L60.3 Nail dystrophy; Q82.8 Other specified congenital malformations of skin; G62.9 Polyneuropathy, unspecified; I73.9 Peripheral vascular disease, unspecified; L90.9 Atrophic disorder of skin, unspecified; Z79.84 Long term (current) use of oral hypoglycemic drugs | CPT/HCPCS: 11056; 11721; 99213 ==

== ENCOUNTER 2025-06-25 08:37 | Outpatient (CLI) | payer MEDICARE, MEDICAID, SELFPAY ==
--- NOTE | 2025-06-25 | MM_ITS ---
WS: [id number] BILATERAL SCREENING DIGITAL TOMOSYNTHESIS MAMMOGRAM WITH CAD HISTORY: ANNUAL SCREENING COMPARISON: 06/12/2024, 06/07/2023 Bilateral CC and MLO views with tomosynthesis and synthetic mammography submitted. Computer aided detection analyzed. Breast composition: The breasts are heterogeneously dense, which may obscure small masses. No suspicious masses, microcalcifications or architectural distortion. Numerous bilateral well-circumscribed masses scattered throughout each breast are stable. Minimal increase in size and number over the last s everal years. No suspicious grouping of calcifications. MM/MM scr tomosynthesis [id number] IMPRESSION: BI-RADS: 2 - Benign FOLLOW UP: 1 Year Follow-up
== END 2025-06-25 08:38 | disposition home or self-care (01) ==
LOC: RAD 08:40
PROVIDERS: PCP Family Medicine; Visit Provider Family Medicine
DX: Z12.31 Encounter for screening mammogram for malignant neoplasm of breast (principal); R92.333 Mammographic heterogeneous density, bilateral breasts; N63.20 Unspecified lump in the left breast, unspecified quadrant; N63.10 Unspecified lump in the right breast, unspecified quadrant
CPT/HCPCS: 77063; 77067

== ENCOUNTER → 2025-07-14 15:01 | Outpatient (BNVA) | payer MEDICARE, MEDICAID, SELFPAY | PROVIDERS: PCP Family Medicine; Visit Provider Podiatrist Foot & Ankle Surgery | DX: E11.8 Type 2 diabetes mellitus with unspecified complications (principal); L60.3 Nail dystrophy; Q82.8 Other specified congenital malformations of skin; G62.9 Polyneuropathy, unspecified; M79.672 Pain in left foot; I73.9 Peripheral vascular disease, unspecified; L90.9 Atrophic disorder of skin, unspecified; E11.42 Type 2 diabetes mellitus with diabetic polyneuropathy; M77.31 Calcaneal spur, right foot; Z79.84 Long term (current) use of oral hypoglycemic drugs | CPT/HCPCS: 99213 ==

== ENCOUNTER → 2025-09-09 12:30 | Outpatient (BNVA) | payer MEDICARE, MEDICAID, SELFPAY | PROVIDERS: PCP Family Medicine; Visit Provider Nurse Practitioner Women's Health | DX: N39.43 Post-void dribbling (principal); N91.2 Amenorrhea, unspecified | CPT/HCPCS: 82670; 83001; 84146; 84315; 84439; 84443; 84481; 87086 ==

== ENCOUNTER 2025-09-23 16:42 | Emergency (ER) | payer MEDICARE, MEDICAID, SELFPAY ==
[2025-09-23 16:45] VITALS: BP 117/72; PULSE 80; RESP 16; TEMP 36.6; O2SAT 96
--- NOTE | 2025-09-23 16:48 | XRR_ITS ---
PROCEDURE INFORMATION: Exam: XR Right Foot Exam date and time: 09/23/2025 4:51 PM Age: 45 years old Clinical indication: Injury or trauma; Blunt trauma; Right; Injury details: C/O RT foot pain post a slip and fall yesterday. ; Additional info: Traumatic pain TECHNIQUE: Imaging protocol: Radiologic exam of the right foot. Views: 3 or more views. COMPARISON: CR XR foot RT min 3V* [id number] 05/05/2025 2:43 PM FINDINGS: Bones/joints: No definite acute fracture or traumatic malalignment. Mild hallux valgus deformity. Mild bunionette deformity. Diffusely decreased bone mineralization. No definite acute fracture. Old remote fracture deformity involving the head of the 5th metatarsal bone. Plantar calcaneal spurring and midfoot arthrosis. Soft tissues: Overlying soft tissues are unremarkable. XR/XR foot RT min 3V* [id number] IMPRESSION: As above.
--- NOTE | 2025-09-23 16:49 | W.ED.EXTPRO ---
HPI - Extremity Problem General: Chief complaint: Extremity Injury, Lower Stated complaint: rt foot inj Time Seen by Provider: 09/23/25 16:48 History of Present Illness: 45-year-old female with a history of type 2 diabetes, anxiety, sleep apnea, bipolar disorder and lives in a usp secondary to intellectual disabilities who presents emergency room with a right foot injury. She tripped yesterday and fell and has a bruise on the right proximal lateral dorsal side of her foot. She is able to walk but has a limp. Neurovascularly intact. Related Data Home Medications ?Medication ?Instructions ?Recorded ?Confirmed bismuth subsalicylate 262 mg/15 mL 524 mg PO ONCE PRN diarrhea 10/20/19 09/09/25 oral suspension (Pepto-Bismol) carbamide peroxide 6.5 % ear drops 10 drop otic (ear) BID PRN EARWAX 10/20/19 09/09/25 (Debrox) REMOVAL dextromethorphan polistirex 30 10 ml PO QID PRN Cough 10/20/19 09/09/25 mg/5 mL oral susp ext.release 12hr (Robitussin ER) omeprazole 40 mg capsule,delayed 40 mg PO DAILY 10/20/19 09/09/25 release cholecalciferol (vitamin D3) 1,250 PO .weekly 08/09/21 09/09/25 mcg (50,000 unit) tablet lovastatin 20 mg tablet 20 mg PO DAILY 03/14/22 09/09/25 calcium 500 mg (as carbonate)-vit 1 ea PO DAILY 06/13/22 09/09/25 D3 5 mcg (200 unit) oral powder pack (Oyster Shell Calcium) bimatoprost 0.01 % eye drops 1 drp ophthalmic (eye) .HS 11/07/22 09/09/25 acetaminophen 325 mg tablet 650 mg PO Q4H PRN Pain 08/27/23 09/09/25 (Tylenol) hydroxychloroquine 200 mg tablet 200 mg PO DAILY 01/23/24 09/09/25 (Plaquenil) gabapentin 100 mg capsule 200 mg PO DAILY 03/27/24 09/09/25 metformin 500 mg tablet 500 mg PO DAILY 02/02/25 09/09/25 celecoxib 200 mg capsule (Celebrex) 200 mg PO BID 08/10/25 09/09/25 cetirizine 10 mg tablet (All Day 10 mg PO DAILY PRN 08/10/25 09/09/25 Allergy (cetirizine)) mupirocin 2 % ointment topical kit 1 applic topical DAILY PRN 08/10/25 09/09/25 Previous Rx's ?Medication ?Instructions ?Recorded epinephrine 0.3 mg/0.3 mL 0.3 mg (0.3 mL) IM Q10M PRN 05/06/24 injection, auto-injector hypersensitivity reaction #2 ea diabetic shoes with 3 inserts #1 ea 01/13/25 aripiprazole 30 mg tablet (Abilify) 30 mg PO BEDTIME #30 tabs 08/05/25 clonazepam 0.5 mg tablet (Klonopin) 0.5 mg PO TID #90 tabs 08/05/25 cyproheptadine 4 mg tablet 8 mg (2 x 4 mg) PO BEDTIME #60 tabs 08/05/25 haloperidol 5 mg tablet 5 mg PO BID PRN severe 08/05/25 anxiety/agitation #60 tabs lamotrigine 200 mg tablet 200 mg PO .morning #30 tabs 08/05/25 (Lamictal) lamotrigine 25 mg tablet (Lamictal) 25 mg PO .morning #30 tabs 08/05/25 sertraline 100 mg tablet (Zoloft) 200 mg (2 x 100 mg) PO .morning 08/05/25 #60 tabs Allergies Allergy/AdvReac Type Severity Reaction Status Date / Time coconut Allergy Severe ALGY-Difficulty Verified 09/23/25 16:47 Breathing ziprasidone (From Geodon) Allergy Unknown ADR-Halluci Verified 09/23/25 16:47 nating divalproex sodium (From Allergy ADR-Halluci Verified 09/23/25 16:47 Depakote) nating Review of Systems Narrative: Constitutional symptoms: Negative except as documented in HPI. Skin symptoms: Negative except as documented in HPI. Eye symptoms: Negative except as documented in HPI. ENMT symptoms: Negative except as documented in HPI. Respiratory symptoms: Negative except as documented in HPI. Cardiovascular symptoms: Negative except as documented in HPI. Gastrointestinal symptoms: Negative except as documented in HPI. Genitourinary symptoms: Negative except as documented in HPI. Musculoskeletal symptoms: Negative except as documented in HPI. Neurologic symptoms: Negative except as documented in HPI. Psychiatric symptoms: Negative except as documented in HPI. Endocrine symptoms: Negative except as documented in HPI. PFSH ED PFSH: Medical History (Updated 09/23/25 @ 17:49 by Francisca Mora MD) No pertinent past medical history neghx: htn,thyroid,dvt/pe PCP: Dr. Dillon Type 2 diabetes mellitus (~12/2023) recent dx; attempting diet control; followed by [facility] Thrombocytosis Iron deficiency anemia was followed by by Gume-- in 2021 she was taken off iron tablets Psychiatric care Generalized anxiety disorder Obstructive sleep apnea Mild intellectual disabilities Chronic post-traumatic stress disorder Bipolar disorder, current episode depressed, severe, without psychotic features Surgical History History of hysteroscopy (~2009) Performed at [facility] in [place] -- ESSURE Status post colonoscopy (07/06/21) H/O esophagogastroduodenoscopy (07/06/21) History of surgery bilateral leg surgery (1985) History of tubal ligation 1996 Family History Other Adopted Social History Smoking and tobacco/nicotine status: current every day tobacco/nicotine user Physical Exam Narrative: EXAM NARRATIVE: General: Alert, no acute distress. Skin: warm and dry Head: Normocephalic Neck: Trachea midline Eye: Extraocular movements are intact. Ears, nose, mouth and throat: Oral mucosa moist Respiratory: Respirations are non-labored Musculoskeletal: Normal ROM, bruising on the right proximal lateral dorsal side of the foot. Gastrointestinal: Abdomen does not appear distended Neurological: Alert and oriented, No focal neurological deficit observed. Psychiatric: Cooperative, appropriate mood & affect. Course Vital Signs: Vital signs: Vital Signs Temperature 97.8 F 09/23/25 16:45 Pulse Rate 74 09/23/25 17:57 Respiratory Rate 15 09/23/25 17:57 Blood Pressure 130/75 09/23/25 17:57 Pulse Oximetry 98 09/23/25 17:57 MDM - Extremity (Nontraumatic) Medical Decision Making Medical decision making Patient's reason for coming to the emergency room: foot injury Social determinants: Patient lives in a usp I reviewed the patient's medical record. 45-year-old female with a history of type 2 diabetes, anxiety, sleep apnea, bipolar disorder and lives in a usp secondary to intellectual disabilities I reviewed the patient's current home meds Alternate historians: None Differential diagnosis including but not limited to and based on the above HPI, review of systems and physical exam: In this patient with a musculoskeletal extremity traumatic injury an x-ray is being ordered to rule out fractures and dislocations. Orders placed to evaluate differential diagnosis based on the above differential, HPI and physical exam X-ray of the right foot: No obvious fractures. She does have some chronic changes. This was reviewed and interpreted by myself the emergency room physician. I also reviewed the radiology report. Assessment and plan: Foot injury - Discharged home - Discussed plan with patient. Answered any questions. - Evaluation and treatment of this problem were appropriate in the emergency setting. Lab Data Radiology Impressions Foot X-Ray 09/23/25 16:48 IMPRESSION: As above. All radiology interpretation(s) finalized by discharge Discharge Plan Discharge Patient Disposition: Home Clinical Impression: Contusion of foot Condition: Stable Prescriptions: No Action bismuth subsalicylate [Pepto-Bismol] 262 mg/15 mL suspension 524 mg PO ONCE PRN (Reason: diarrhea) Rx Instructions: PT UNABLE TO CONFIRM MEDICATIONS. CONFIRMED WITH PT'S PIPELINE CONSTRUCTION INSPECTOR AND HER MAR. omeprazole 40 mg capsule,delayed release(DR/EC) 40 mg PO DAILY Rx Instructions: PT UNABLE TO CONFIRM MEDICATIONS. CONFIRMED WITH PT'S PIPELINE CONSTRUCTION INSPECTOR AND HER MAR. dextromethorphan polistirex [Robitussin ER] 30 mg/5 mL suspension,extended rel 12 hr 10 ml PO QID PRN (Reason: Cough) Rx Instructions: PT UNABLE TO CONFIRM MEDICATIONS. CONFIRMED WITH PT'S PIPELINE CONSTRUCTION INSPECTOR AND HER MAR. carbamide peroxide [Debrox] 6.5 % drops 10 drop EAR-BOTH BID PRN (Reason: EARWAX REMOVAL) Rx Instructions: USE 4 DAYS EASH MONTH PRN. cholecalciferol (vitamin D3) 1,250 mcg (50,000 unit) tablet PO .weekly hydroxychloroquine [Plaquenil] 200 mg tablet 200 mg PO DAILY (DME) diabetic shoes with 3 inserts See Rx Instructions .Route .MEDSUPPLY Qty: 1 0RF Rx Instructions: As directed to the leah collado metformin 500 mg tablet 500 mg PO DAILY celecoxib [Celebrex] 200 mg capsule 200 mg PO BID cetirizine [All Day Allergy (cetirizine)] 10 mg tablet 10 mg PO DAILY PRN mupirocin 2 % ointment kit 1 applic topical DAILY PRN lovastatin 20 mg tablet 20 mg PO DAILY Oyster Shell Calcium-Vit D3 500 mg-5 mcg (200 unit) powder in packet 1 ea PO DAILY bimatoprost 0.01 % drops 1 drp ophthalmic (eye) .HS Rx Instructions: 1 Drop in each eye at bedtime for lower eye pressure. gabapentin 100 mg capsule 200 mg PO DAILY aripiprazole [Abilify] 30 mg tablet 30 mg PO BEDTIME Qty: 30 6RF Rx Instructions: Take one tablet at bedtime clonazepam [Klonopin] 0.5 mg tablet 0.5 mg PO TID Qty: 90 3RF Rx Instructions: Take one tablet three times per day cyproheptadine 4 mg tablet 8 mg PO BEDTIME Qty: 60 6RF Rx Instructions: Take two tablets at bedtime haloperidol 5 mg tablet 5 mg PO BID PRN (Reason: severe anxiety/agitation) Qty: 60 3RF Rx Instructions: May take one tablet twice per day as needed for severe anxiety/agitation lamotrigine [Lamictal] 25 mg tablet 25 mg PO .morning Qty: 30 6RF Rx Instructions: Take one tablet every morning with 200 mg tablet, total dose 225 mg lamotrigine [Lamictal] 200 mg tablet 200 mg PO .morning Qty: 30 6RF Rx Instructions: Take one tablet every morning Zoloft 100 mg tablet 200 mg PO .morning Qty: 60 6RF Rx Instructions: Take two tablets every morning acetaminophen [Tylenol] 325 mg tablet 650 mg PO Q4H PRN (Reason: Pain) Rx Instructions: PT UNABLE TO CONFIRM MEDICATIONS. CONFIRMED WITH PT'S PIPELINE CONSTRUCTION INSPECTOR AND HER MAR. epinephrine 0.3 mg/0.3 mL auto-injector 0.3 mg IM Q10M PRN (Reason: hypersensitivity reaction) Qty: 2 0RF Rx Instructions: for 2 doses Discharge Orders: Discharge ED (Routine); Ordered 09/23/25 Ordered By: Francisca Mora Referrals: Kendrick Dillon [Primary Care Provider, Family Practice] Patient Instructions: Opioid Safety, Pain Management, Patient Portal & Sangeetha Instructions Activity Restrictions/Additional Instructions: [facility]. You have been screened and evaluated and felt safe for discharge. Health conditions do change or evolve sometimes and as such it is important that you follow up with your Primary Doctor to be re checked, 3-5 days is a general good time frame for follow up. You are always welcome to return to the ED for re assessment if your symptoms are worsening or you have new concerns. (Please note that included in your discharge packet is information concerning opioid safety and pain management. This information is given to all patients who are discharged from the ER regardless of their discharge diagnosis or the medicines they usually take or are prescribed.) Print Language: Maltese Coding Level of Care Code ED Network Support Engineer for Tonia Robbins
--- OUTSIDE RECORDS SUMMARY | 2025-09-23 16:51 | XMS_ITS | Clinical Summary ---
Author Organization [facility] Address [address] [place] [id number] Care Team Providers [facility] Name Role Phone Kendrick Dillon MD Primary Care Provider [phone] Allergies No known active allergies Medications LITHIUM CARBONATE ORAL Take 600 mg by mouth 2 times daily . Active GUAIFENESIN (MUCINEX ORAL) Take by mouth. Active acetaminophen (TYLENOL EXTRA STRENGTH) 500 mg tablet Take 500 mg by mouth every 6 hours as needed. Active MAGNESIUM HYDROXIDE (MILK OF MAGNESIA ORAL) Take by mouth. Active BISMUTH SUBSALICYLATE (PEPTO-BISMOL ORAL) Take by mouth. Active lamoTRIgine (LAMICTAL) 200 mg tablet Take 200 mg by mouth daily at bedtime. Active loratadine (CLARITIN) 10 mg tablet Take 10 mg by mouth daily. Active clonazePAM (KLONOPIN) 0.5 mg Tablet Take 0.25 mg by mouth 2 times daily. Active carbamide peroxide (GLY-OXIDE) 10 % Solution by Mouth/Throat route 4 times daily after meals and at bedtime. Active calcium-cholecalci ferol (CALCIUM 500+D) 500 mg(1,250mg) -400 unit tablet Take 1 Tablet by mouth daily. 30 Tablet 11 6 Active ARIPiprazole (ABILIFY) 15 mg tablet Take 10 mg by mouth daily at bedtime . Active omeprazole (PriLOSEC) 40 mg Capsule, Delayed Release(E.C.)Indic ations:Epigastric pain Take 1 Capsule (40 mg) by mouth daily. 30 Capsule 5 8 Active sertraline (ZOLOFT) 100 mg tablet Take 150 mg by mouth daily. Active prazosin (MINIPRESS) 1 mg capsule Take 1 mg by mouth daily at bedtime. Active famotidine (PEPCID) 20 mg tabletIndications: Gastroesophageal reflux disease without esophagitis Take 1 Tablet (20 mg) by mouth 2 times daily. 180 Tablet 3 9 Active Combigan 0.2-0.5 % solution 0 Active piroxicam (FELDENE) 20 mg capsule Take 1 Capsule (20 mg) by mouth 1 time daily as needed for Pain. 30 Capsule 5 0 Active Active Problems Problem Noted Date Diagnosed Date Primary open angle glaucoma (POAG) of both eyes, moderate stage 07/19/2020 Gastroesophageal reflux disease without esophagi tis 07/20/2019 FLORENCIA on CPAP 07/20/2019 Cardiac murmur 09/11/2018 family assistant current use of antipsychotic medicatio n 07/15/2018 Long-term current use of lithium 07/15/2018 Dysphagia 02/15/2017 Cigarette dependence 08/05/2015 Mental developmental delay 05/02/2014 Bipolar disorder 08/30/2009 Overview (2010): Followed by Behavioral Health/Psychiatry DONG (generalized anxiety disorder) 08/30/2009 Gastritis and duodenitis 03/18/2009 Overview (2010): EGD: (03/08): Patchy gastric inflammation with erosions. Renata -. Resolved Problems Problem Noted Date Diagnosed Date Resolved Date Sterilization 07/29/2012 04/21/2014 Overview (07/29/2012): S/P Essure Permanent Sterilization (2009) Tobacco abuse 03/27/2009 04/21/2014 Overview (07/29/2012): 1 ppd (07/11) Immunizations Immunization Administration Dates Next Due (ADACEL/BOOSTRIX)(10 YR UP) TDAP VACCINE, 0.5ML, IM 11/17/2015 (TDVAX)(7 YRS UP) TETANUS AN D DIPHTHERIA TOXOIDS, ADSORBED (2 LF OF TETANUS TOXOID AND 2 LF OF DIPHTHERIA TOXOID), 0.5ML (PF), IM 10/21/1996 Hepatitis B Vaccine 05/19/1998,10/07/1997,1996 Influenza Seasonal Unspecifi ed Formulation IM 08/03/2020,07/23/2018,06/30/2012 Influenza Vaccine Split 3+ Yrs PF IM 06/30/2013 Influenza Vaccine Tri Split 4+ Pf Im 07/26/2017 Social History Tobacco Use Types Packs/Day Years Used Date Smoking Tobacco: Every Day Cigarettes 0.8 2 Smokeless Tobacco: Never Tobacco Cessation:Ready to Q uit: No; Counseling Given: Yes Alcohol Use Standard Drinks/Week Comments No 0 (1 standard drink = 0.6 oz pur e alcohol) Comments No Sex and Gender Information Value Date Recorded Sex Assigned at Not on file Legal Sex Female 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 Gender Identity Not on file Sexual Orientation Not on file Occupation Industry Job Start Date Job End Date Not on file Not on file Not on file Not on file Last Filed Vital Signs Vital Sign Reading Time Taken Comments Blood Pressure 118/70 02/14/2021 4:32 PM CDT Pulse 76 02/14/2021 4:32 PM CDT Temperature 36.7 C (98.1 F) 02/14/2021 4:32 PM CDT Respiratory Rate 16 02/14/2021 4:32 PM CDT Oxygen Saturation 99% 02/14/2021 4:32 PM CDT Inhaled Oxygen Concentration - - Weight 49.9 kg (110 lb) 02/14/2021 4:32 PM CDT Height 142.2 cm (4' 8 ) 02/14/2021 4:32 PM CDT Body Mass Index 24.66 02/14/2021 4:32 PM CDT Plan of Treatment Health Maintenance Due Date Last Done Comments DIABETES ANNUAL FOOT EXAM 1996 DIABETES MICROALBUMIN ANNUAL SCREEN 1996 FIT/ DNA Q 3 YEARS (AUTO ORDER) 1996 FIT/FOBT Q 1 YEAR (AUTO ORDER) 1996 FLEX SIG/CT COLONOGRAPHY Q 5 YEARS (AUTO ORDER) 1996 Traditional Medicare (ACO) A nnual Wellness Visit 1997 DIABETES HBA1C Q 6 MONTHS 07/26/20212020, 01/14/2020, 08/25/2019, Additional history exists PAP SMEAR 10/24/2021 10/24/2018, 12/09/2014, 07/13/2014, Additional history exists LDL CHOLESTEROL ANNUAL 01/16/2022 , 08/25/2019, 07/22/2017, Additional history exists COLORECTAL CANCER SCREENING (AUTO ORDER) 2023 COLORECTAL SCREENING 2023 Colorectal Cancer Screening (AUTO ORDER) 2023 Colorectal Cancer Screening 2023 FIT-DNA Q 3 years 2023 FIT/FOBT Q 1 year 2023 Flex Sig/CT Colonography Q 5 years 2023 CERVICAL CANCER SCREENING 10/24/2023 HPV/Cotest (21-29) 10/24/2023 10/24/2018, 1 11/10/2014, 07/13/2014, Additional history exists HPV/Cotest (30-65) 10/24/2023 10/24/2018, 1 11/10/2014, 07/13/2014, Additional history exists INFLUENZA VACCINE (#1) 2025 , 07/19/2020, 07/23/2018, Additional history exists DTAP/TDAP/TD VACCINES (3 - T d or Tdap) 11/17/2025 11/17/2015, 10/21/1996 DIABETES ANNUAL RETINAL EXAM 03/19/2026, 03/13/2024, 06/29/2020, Additional history exists BREAST CANCER SCREENING 06/25/2026 06/25/20, 06/12/2024, 06/07/2023, Additional history exists HEPATITIS B VACCINES Completed 05/19/1998, 10/07/1997, 09/02/1997 Procedures Procedure Name Priority Date/Time Associated Diagnosis Comments LIPID PANEL Routine 01/16/2021 MAMMO SCREEN BILAT W OR WO CAD Routine 04/05/2020 Breast cancer screening by mammogram CERV/VAG CYTO SCREEN PAP RLFX HPV Routine 10/24/2018 9:32 AM PARTS SALES MANAGER Well woman exam with routine gynecological exam Cervical cancer screening HEMOGLOBIN A1C Routine 01/26/2010 from Last 3 Months or Most Recently Relevant to Health Maintenance Results * LIPID PANEL (01/16/2021) ABSTRACTED CHOLESTEROL 196 EXTERNAL LAB ABSTRACTED TRIGLYCERIDE 185 EXTERNAL LAB ABSTRACTED HDL 42 EXTERNAL LAB ABSTRACTED LDL CALCULATED 123 EXTERNAL LAB CHOLESTEROL EXTERNAL LAB TRIGLYCERIDE EXTERNAL LAB HDL EXTERNAL LAB LDL CALCULATED EXTERNAL LAB Blood 01/16/2021 Kendrick Dillon MD CHEMISTRY ORDERABLES Mabel l Result EXTERNAL LAB * MAMMO SCREEN BILAT W OR WO CAD (04/05/2020) Anatomical Region Laterality Modality Breast Bilateral Mammography Kendrick Dillon MD MAMMO ORDERABLES Final Re sult * CERV/VAG CYTO SCREEN PAP RLFX HPV (10/24/2018 9:32 AM PARTS SALES MANAGER) CLINICAL INFORMATION Information not provided 10/31/2018 7:53 AM PARTS SALES MANAGER [facility] LAST MENSTRUAL PERIOD INFORMATION NOT PROVIDED 10/31/2018 7:53 AM PARTS SALES MANAGER [facility] PREV PAP: INFORMATION NOT PROVIDED 10/31/2018 7:53 AM PARTS SALES MANAGER [facility] PREV BX: INFORMATION NOT PROVIDED 10/31/2018 7:53 AM PARTS SALES MANAGER [facility] SOURCE Endocervix 10/31/2018 7:53 AM PARTS SALES MANAGER [facility] ADEQUACY: SEE COMMENT 10/31/2018 7:53 AM PARTS SALES MANAGER [facility] Comment: Satisfactory for evaluation. Endocervical/transformation zone component present. Age and/or menstrual status not provided PAP INTERP Negative for intraepithelial lesion or malignancy. 10/31/2018 7:53 AM PARTS SALES MANAGER [facility] COMMENT This Pap test has been evaluated with computer assisted technology. 10/31/2018 7:53 AM PARTS SALES MANAGER [facility] PORT STEWARD: SEE COMMENT 2018 7:53 AM PARTS SALES MANAGER [facility] Comment: SONNY AL(ASCP) CT screening location: [place] [address] [place] [address] EXPLANATORY NOTE SEE COMMENT 019 7:53 AM PARTS SALES MANAGER [facility] Comment: EXPLANATORY NOTE: The Pap is a screening test for cervical cancer. It is not a diagnostic test and is subject to false negative and false positive results. It is most reliable when a satisfactory sample, regularly obtained, is submitted with relevant clinical findings and history, and when the Pap result is evaluated along with historic and current clinical information. Genital SWAB OF [facility]OCERV[facility] / Unknown Collection / Unknown 10/24/2018 9:32 AM PARTS SALES MANAGER 10/27/2018 9:42 AM PARTS SALES MANAGER Narrative [facility] - 10/31/2018 7:53 AM PARTS SALES MANAGER Performing Organization Information: Site ID: SL Name: [facility] Address: [address] [place] [address] Director: Fermin Alfonso us Kendrick Dillon MD PATHOLOGY/CYTOLOGY ORDERA BLES Final Result [facility] * HEMOGLOBIN A1C (01/26/2010) GLUCOSE, MEAN BLOOD [facility] Blood specimen (specimen) Carlos Sharpe MD CHEMISTRY ORDERABLES Final Result Performing Organization Address [facility] Co de Phone Number [facility] from Last 3 Months or Most Recently Relevant to Health Maintenance Insurance MEDICAID [place] MEDICARE PART A AND B MEDICARE PART A AND B [place]ICAID [place] Advance Directives For more information, please contact: [phone] Documents on File Type Date Recorded Patient Donor Recruiter Expl anation Advance Directive POA 07/05/2009 Advanc e Directive POA Advance Directive Living Will 07/05/2009 Care Teams [facility] Relationship Specialty Start Date End Date Kendrick Dillon MD [address] [facility] [address] [place] [id number] PCP - General Family Practice 08/17/16
--- OUTSIDE RECORDS SUMMARY | 2025-09-23 16:51 | XMS_ITS | Data Portability ---
Author Organization MARLEN[facility]bir [facility] Address [address] [facility] [address] [place] [address] Assessment Encounter Date Assessment Date Assessment LastModified by Organization Details LastModified Time 03/04/2023 03/04/2023 Xrays were obtained in the office today. Findings appear to be consistent with no acute changes, fractures or dislocation noted. We will send xr for over-read with radiology. Will treat as contusion. WBAT. APAP PRN for pain. RICE education for swelling. Work note given. F/U PRN. Patient verbalized understanding and agreement with plan of care. Will call with questions or concerns. [email or web address] Not available 03/04/2023 15:12:33 Plan of Treatment Reminders Order Date Submit Date Provider Last Modified By Organization Details Last Modified Time Details Appointments None record ed. Lab None record ed. Referral None record ed. Procedures None record ed. Surgeries None record ed. Imaging XR, foot, 3 or more view - LEFT 023 03/04/20 23 [email or web address] Not available 3 10:33:40 Medication Orders None record ed. Patient TargetsNo targets recorded. Patient InstructionsNo instructions recorded. Reason for Referral None Reported. Problems Name Problem SNOMED Code Status Onset Date Resolution Date Notes Provider Name and Address Organization Details Recorded Time Bipolar disorder 14720929 Active 021 Bipolar Disorder ; 06/20/20 21 2:33PM by Fiona Mai, Office Visit; Promoted ; acuity set as *; Not Available [facility] 3 03:18:03 Problem Notes None recorded. Medical Equipment None Reported. Allergies Allergen ID Allergen Name Allergen Category Reaction Reaction Severity Criticality Documentation Date Start Date Code Code System Note Provider Name and Address Organization Details Recorded Time 3921 Depakote medicatio n Not available Not available Not available 03/04/2023 67296 9 RxNorm MARLENE Villafuerte [facility] 3 14:38:49 27276 Geodon medicatio n Not available Not available Not available 04/27/2023 47651 4 RxNorm Comme nt: Recor ded 06/20 2:33P M by Brooke Perry er, Offic e Visit ; Promo sharan; Asim sethi ce: *; Reaso n: Drug aller gy; ; Not Available [facility] 3 02:29:10 Medications Name Sig Start Date Stop Date Status Note LastModified by Organization Details LastModified Time amoxicill in 500 mg capsule 10/28 completed Not Available Not Available Not Available lamotrigi ne 200 mg tablet active Not Available Not Available Not Available haloperid ol 5 mg tablet active Not Available Not Available Not Available prazosin 1 mg capsule daily active 0; Recorded 03/24/20 20 12:08PM by Mellissa Russo, Office Visit; Not Available Not Available Not Available meloxicam 15 mg tablet active Not Available Not Available Not Available clonazepa m 0.5 mg tablet active [facility] Not Available Not Available Not Available sertralin e 100 mg tablet daily active Not Available Not Available Not Available omeprazol e 40 mg capsule,d elayed release daily active Not Available Not Available Not Available triamcino lone acetonide 0.1 % topical cream active Not Available Not Available Not Available amoxicill in 500 mg tablet TAKE FOUR TABLETS BY MOUTH ONE HOUR PRIOR TO PROCEDUR E 10/28 completed Not Available Not Available Not Available lamotrigi ne 25 mg tablet 10/28 completed Not Available Not Available Not Available cyprohept adine 4 mg tablet active Not Available Not Available No t Available gabapenti n 100 mg capsule active Not Available Not Available Not Available hydroxych loroquine 200 mg tablet active Not Available Not Available Not Available epinephri ne 0.3 mg/0.3 mL injection , auto-inje ctor active Not Available Not Available Not Available lovastati n 20 mg tablet active Not Available Not Available Not Available lithium carbonate 300 mg tablet two times daily active 0; Recorded 03/24/20 12:08PM by Mellissa Russo, Office Visit; Not Available Not Available Not Available aripipraz ole 20 mg tablet active [facility] Not Available Not Available Not Available aripipraz ole 30 mg tablet 10/28 completed Not Available Not Available Not Available Abilify 10 mg tablet daily 10/28 completed 0; Recorded 03/24/20 12:08PM by Mellissa Russo, Office Visit; Not Available Not Available Not Available aripipraz ole 5 mg tablet 10/28 completed Not Available Not Available Not Available loratadin e active 0; Recorded 03/24/20 12:08PM by Mellissa Russo, Office Visit; Not Available Not Available Not Available Oysco 500 daily active 0; Recorded 03/24/20 12:08PM by Mellissa Russo, Office Visit; Not Available Not Available Not Available Feldene as needed active 0; Recorded 03/24/20 12:08PM by Mellissa Russo, Office Visit; Not Available Not Available Not Available clonazepa m daily 10/28 completed 0; Recorded 03/24/20 12:08PM by Mellissa Russo, Office Visit; Not Available Not Available Not Available tranexami c acid 650 mg tablet active Not Available Not Available Not Available Lumigan 0.01 % eye drops daily active Not Available Not Available No t Available Vitals Date Recorded Body weight Body mass index (BMI) Body height Body temperature Oxygen saturation Heart rate Systolic And Diastolic Provider Name and Address Organization Details Last Updated DateTime 5 51250.2 6 g 32.2 kg/m2 144.78 cm 97.9 [degF] 96 % 83 /min 120/80 mm[Hg] CARLEEN SAAVEDRA [facility] 5 14:04:27 Date Recorded Body weight Oxygen saturation Heart rate Respiratory rate Body temperature Provider Name and Address Organization Details Last Updated DateTime 3 35029.4 5 g 97 % 101 /min 20 /min 98.7 [degF] KEYON HEYDI [facility] 3 14:38:33 Social History None recorded. Functional Status None recorded. Mental Status None recorded. Family History Nothing Reported. Medical History No medical history recorded. Gynecological HistoryNo gynecological history recorded. Obstetrics History GPAL:G 0 P 0 0 0 0 Immunizations Vaccine Type Date Status Note Provider Nam e and Address Organization Details Recorded Time Td(adult) unspecified formulation 1 completed Not Available [facility] 04[facility]27[facility]23 02:26:21 Influenza, split virus, trivalent, preservative 6 completed Not Available [facility] 04/27/2023 02:26:21 Influenza, split virus, trivalent, preservative 8 completed Not Available [facility] 04/27/2023 02:26:21 Past Encounters Encounter ID Performer Location Encounter Start Date Encounter Closed Date Diagnosis/Indication Diagnosis SNOMED-CT Code Diagnosis ICD10 Code Diagnosis IMO Codes Diagnosis Note [id number] HENRY REYES [facility] ([facility]) [address] [place] [address] 03/04/2023 12:41:58 03/04/2023 20:38:07 Pain in left foot 2958091539 23913 M79.672 Contusion of left foot 4065427114 5268993 S90.32XA [id number] Vilma Granados MD [facility] ([facility]) [address] [place] [phone] 10/28/2024 13:53:54 10/28/2024 16:34:35 Pain of right knee joint 0956306096 07718 M25.561 Reassuranc e that will likely improve with time and conservati ve measures. 10/28/24 Health Concerns Section Related Observation LastModified by Organization Detai ls LastModified Time None Recorded Concern Status LastModified by Organization Details LastModified Time None Recorded Advance Directives Directive None Recorded Payers Insurance Date Sequence Insurance Name Policy Number Policy Deleon Covered Member ID Deleon Member ID Guarantor Name 12/31/2024 [place] [facility] (MEDICARE) Celia Ghosh [id number] Celia Ghosh 12/31/2024 1 [place] Celia Ghosh [id number] Celia Ghosh 02/05/2025 2 [place] Celia Ghosh [id number] Celia Flowers Milkaabrahan 12/31/2024 [place] [facility] (MEDICARE) Celia Ghosh [id number] Celia Ghosh 02/05/2025 [place] [facility] Celia Ghosh [id number] Celia Ghosh Notes Date Note Type Note Provider Name and Address Organization Details Recorded Time 03/04/20 23 text/htm l Musculoskeletal PainReported by PatientHPIFor quality, patient reportssharpandtingling. For severity, patient reportsworseningandinterferes with work/school. For associated symptoms, patient reportstinglingbut reportsno fever,no weak limbs, andno numbness of the legs/feet. For location, patient reportspain is not radiating. For duration, patient reportspresent <1 month. For timing, patient reportsconstantandsudden. For context, patient reportstrauma. For aggravating factors, patient reportsmovement/positioning. For adls affected, patient reportswalking.ROS as noted in the HPI HENRY REYES [address] [place], [address], [facility] 03/04/2023 15:12:49 10/28/19 25 text/htm l Joint PainReported by PatientHPIFor location, patient reportspain radiating to the foot __but reportsright knee. For timing, patient reportsconstant. For context, patient reportstrauma. For associated symptoms, patient reportsno fever.ROS as noted in the HPI I fell last nightwhen I fell my leg gave out and I twisted my kneelanded on hard floordid an ice pack, icy hot and tylenol... Vilma Granados MD [address] [place], [address], [facility] 11/03/2024 13:37:22 OBGyn Episode No OBEpisode recorded.
--- OUTSIDE RECORDS SUMMARY | 2025-09-23 16:52 | XMS_ITS | Clinical Summary ---
Author Organization [facility] Address [address] [facility] [address] [place] [address] Care Team Providers Care Instrumentation Technologist Name Role Phone Kendrick Dillno MD Primary Care Provider [phone] Allergies Active Allergy Reactions Criticality Noted Date Comments Divalproex Hives High 04/06/2021 Valproic Acid Unknown 07/24/2024 Ziprasidone Hcl Confusion Low 04/06/2021 Medications sertraline (ZOLOFT) 100 mg tablet Take 200 mg by mouth daily. 018 Active ARIPiprazole (ABILIFY) 20 mg tablet Take 30 mg by mouth daily. Active guaifenesin/DM/ pseudoephedrine (ROBITUSSIN-CF ORAL) Take 10 mL by mouth 4 times daily as needed. Active bimatoprost (Lumigan) 0.01 % solution Administer 1 Drop in both eyes daily at bedtime. Active cpap emergency medical technician/driver Active cyproheptadine (PERIACTIN) 4 mg tablet Take 8 mg by mouth daily at bedtime. 022 Active haloperidoL (HALDOL) 2 mg tablet Take 5 mg by mouth 2 times daily as needed. 022 Active [place]-Callus Cushion (Callus Cushion)Indicat ions:Callus of foot Apply 1 Each to affected area daily. 9 Each 2 022 Active lamoTRIgine (LaMICtal) 200 mg tablet Take 150 mg by mouth daily. 023 Active acetaminophen (TYLENOL) 325 mg tablet Take 650 mg by mouth every 4 hours as needed. Active clonazePAM (KlonoPIN) 0.5 mg Tablet Take 0.5 mg by mouth 3 times daily. 024 Active bismuth subsalicylate (PEPTO-BISMOL MAX) 525 mg/15 mL Suspension Take 30 mL by mouth every 6 hours as needed for Diarrhea/Loose Stools. Active CPAP / BIPAP supplies Length of need: 99 months Mask with headgear every 6 months, mask only every 3 months, cushions per month. Tubing: heated 1 every 3 months, water chamber 1 every 6 months, chin strap 1 every 6 months, filters disposable 2 per month, filters reusable 1 per 6 months. 1 Each 024 Active ARIPiprazole (ABILIFY) 5 mg tablet 024 Active triamcinolone acetonide (KENALOG) 0.1 % Cream Apply to affected area 2 times daily. 80 Gram 1 024 Active omeprazole (PriLOSEC) 40 mg Capsule, Delayed Release(E.C.)In dications:Gastr oesophageal reflux disease without esophagitis TAKE ONE CAPSULE BY MOUTH EVERY DAY FOR gerd 100 Capsule 3 024 Active carbamide peroxide (Ear Wax Removal Drops) 6.5 % Drops fill BOTH ear canals TWICE DAILY FOR FOUR DAYS each MONTH NEEDED FOR earwax removal 15 mL 1 025 Active metFORMIN (GLUCOPHAGE) 500 mg tabletIndicatio ns:Type 2 diabetes mellitus with diabetic polyneuropathy, without long-term current use of insulin (CMS/HCC) Take 1 Tablet (500 mg) by mouth daily with breakfast. 100 Tablet 3 025 Active lovastatin (MEVACOR) 20 mg tablet TAKE ONE TABLET BY MOUTH EVERY DAY with SUPPER FOR cholesterol 100 Tablet 1 025 Active neomycin-bacitr acin-polymyxin (Triple Antibiotic) 3.5mg-400 unit- 5,000 unit/gram Ointment APPLY TO THE AFFECTED AREA(S) twice daily NEEDED *minor SKIN conditions* 28.4 Gram 1 025 Active celecoxib (CeleBREX) 200 mg capsule TAKE ONE CAPSULE BY MOUTH TWICE DAILY FOR ARTHRITIS 60 Capsule 3 025 Active cetirizine (ZyrTEC) 10 mg tablet Take 1 Tablet (10 mg) by mouth daily at bedtime. 30 Tablet 11 025 Active fluticasone propionate (FLONASE) 50 mcg/spray Unity, Suspension nasal inhaler Administer 2 Sprays in each nostril daily. 16 Gram 11 025 Active calcium as CARBONATE-vitam in D3 (Oyster Shell Calcium-Vit D3) 500 mg-5 mcg (200 unit) tablet TAKE ONE TABLET BY MOUTH EVERY DAY FOR bone health 100 Tablet 1 025 Active EPINEPHrine (EPIPEN) 0.3 mg/0.3 mL Auto-Injector inject 0.3 MG (0.3 ML) intramuscularly every 10 minutes NEEDED FOR hypersensitivity reaction; FOR 2 doses * FOLLOW UP WITH ER * 1 Each 1 025 Active mupirocin (BACTROBAN) 2 % OintmentIndicat ions:Folliculit is apply TO affected area ONCE DAILY NEEDED FOR boils OR SKIN irritation 30 Gram 2 025 Active gabapentin (NEURONTIN) 100 mg capsuleIndicati ons:Type 2 diabetes mellitus with diabetic polyneuropathy, without long-term current use of insulin ([facility]) TAKE TWO CAPSULES BY MOUTH EVERY NIGHT AT BEDTIME FOR pain 60 Capsule 2 025 Active meloxicam (MOBIC) 15 mg tablet 025 Active methyl salicylate-ment hol (Icy Hot) 30-10 % Cream APPLY SMALL AMOUNT TO affected AREAS TWICE DAILY NEEDED FOR pain 99.2 Gram 1 025 Active cholecalciferol 1,250 mcg (50,000 unit) Capsule TAKE ONE CAPSULE BY MOUTH WEEKLY ON SATURDAY FOR VITAMIN SUPPLEMENT 12 Capsule 025 Active hydroxychloroqu ine (PLAQUENIL,SOVU NA) 200 mg tabletIndicatio ns:Inflammatory arthritis TAKE 2 TABLETS BY MOUTH EVERY NIGHT AT BEDTIME FOR RHEUMATOID ARTHRITIS 60 Tablet 1 025 Active methyl salicylate-ment hol (Icy Hot) 30-10 % Cream APPLY SMALL AMOUNT TO affected AREAS TWICE A DAY NEEDED FOR PAIN 99.2 Gram 1 024 2024 Discontinued cholecalciferol 1,250 mcg (50,000 unit) Capsule TAKE ONE CAPSULE BY MOUTH WEEKLY ON SATURDAY AT 800AM FOR VITAMIN SUPPLEMENT 12 Capsule 4 024 2024 Discontinued hydroxychloroqu ine (PLAQUENIL,SOVU NA) 200 mg tabletIndicatio ns:Inflammatory arthritis TAKE 2 TABLETS BY MOUTH EVERY NIGHT AT BEDTIME FOR RHEUMATOID ARTHRITIS 60 Tablet 1 025 2024 Discontinued Active Problems Problem Noted Date Diagnosed Date Type 2 diabetes mellitus wit h diabetic polyneuropathy, without long-term current use of insulin 11/29/2023 Erosive osteoarthritis 07/19/2023 Prediabetes 07/19/2023 Mixed hyperlipidemia 02/23/2022 Erosive esophagitis 07/21/2021 Savanah esophagitis 07/21/2021 Calculus of gallbladder with out cholecystitis without obstruction 07/21/2021 Iron deficiency anemia 07/21/2021 Vitamin D deficiency 07/21/2021 Hard to intubate 04/27/2021 Primary open angle glaucoma (POAG) of both eyes, moderate stage 07/19/2020 Gastroesophageal reflux disease without esophagi tis 07/20/2019 FLORENCIA on CPAP 07/20/2019 Cardiac murmur 09/11/2018 shelter current use of antipsychotic medicatio n 07/15/2018 Dysphagia 02/15/2017 Cigarette dependence 08/05/2015 Mental developmental delay 05/02/2014 Bipolar disorder 08/30/2009 Overview (01/26/2021): Followed by Behavioral Health/Psychiatry DONG (generalized anxiety disorder) 08/30/2009 Gastritis and duodenitis 03/18/2009 Overview (01/26/2021): EGD: (03/08): Patchy gastric inflammation with erosions. Renata -. Resolved Problems Problem Noted Date Diagnosed Date Resolved Date Long-term current use of lithium 07/15/2018 07/19/2023 Sterilization 07/29/2012 04/21/2014 Overview (01/25/2021): S/P Essure Permanent Sterilization (2009) Tobacco abuse 03/27/2009 04/21/2014 Overview (01/25/2021): 1 ppd (07/11) Encounters Date Type Department Care Team Description 09/21/2025 External Device Data ST[facility] ABSTRACTION Provider, Abstract 09/21/2025 [facility] Rheumatology- [place] [address] [place] [address] Dea Trujillo MD Inflammatory arthritis 09/21/2025 Refill [facility] [address] [phone] Ghislaine Rousseau, CLAIMS AGENT RIGHT OF WAY 09/07/2025 Refill [facility] [address] [facility] [address] [place] [id number] Lalitha Matos FNP 08/24/2025 External Device Data [facility] ABSTRACTION Provider, Abstract 08/24/2025 External Device Data [facility] ABSTRACTION Provider, Abstract 08/03/2025 Orders Only [facility] [address] [phone] Kendrick Dillon MD Type 2 diabetes mellitus with diabetic polyneuropathy, without long-term current use of insulin ([facility]) (Primary Dx) 08/02/2025 Results Follow-Up [facility] [address] [phone] Kendrick Dillon MD XR CHEST PA AND LATERAL 2 VW 07/30/2025 11:55 AM CDT - 07/30/2025 11:59 PM CDT Hospital Encounter [facility] [address] [facility] [address] [place] [phone] Kendrick Dillon MD Discharge Disposition: Home or Self Care 07/30/2025 11:00 AM CDT Office Visit [facility] [address] [phone] Kendrick Dillon MD Medicare annual wellness visit, subsequent (Primary Dx); Acute bronchitis, unspecified organism; Mental developmental delay; Cigarette dependence; Type 2 diabetes mellitus with diabetic polyneuropathy, without long-term current use of insulin ([facility]) 07/21/[address] [phone] Lizbeth Velasco, MACK Type 2 diabetes mellitus with diabetic polyneuropathy, without long-term current use of insulin ([facility]) 07/21/2025 Refill [facility] Rheumat[facility]- [facility] [address] [phone] Dea Trujillo MD Inflammatory arthritis [facility] [address] [phone] Kendrick Dillon MD Folliculitis 07/15/[address] [phone] Ghislaine Rousseau FNP 07/07/[address] [phone] Ghislaine Rousseau FNP 07/07/2025 Results Follow-Up [address] [phone] Kendrick Dillon MD URINALYSIS WITH REFLEX MICROSCOPIC 07/06/2025 External Device Data ST[facility] ABSTRACTION Provider, Abstract 07/02/2025 Orders Only [address] [phone] Kendrick Dillon MD Dysuria (Primary Dx) 07/01/[address] [phone] Kendrick Dillon MD Needs Orders Written 06/29/2025 Orders Only [facility] Health Information Management [place] [address] [place] [phone] Kendrick Dillon MD from Last 3 Months Immunizations Immunization Administration Dates Next Due (ADACEL/BOOSTRIX)(10 YR UP) TDAP VACCINE, 0.5ML, IM 11/17/2015 (TDVAX)(7 YRS UP) TETANUS AN D DIPHTHERIA TOXOIDS, ADSORBED (2 LF OF TETANUS TOXOID AND 2 LF OF DIPHTHERIA TOXOID), 0.5ML (PF), IM 10/21/1996 Hepatitis B Vaccine 05/19/1998,10/07/1997,1996 INFLUENZA VACCINE QUADRIVALE NT 6 MOS UP CELL DERIVED PF IM 07/27/2022 INFLUENZA VACCINE QUADRIVALE NT 6 MOS UP IM 07/26/2021 INFLUENZA VACCINE QUADRIVALE NT 6 MOS UP PF IM 07/19/2023 INFLUENZA VACCINE TRIVALENT SPLIT VIRUS, (6 MOS UP), 0.5ML (PF), IM 07/17/2024 Influenza Seasonal Unspecifi ed Formulation IM 06/30/2025,07/26/2021,08/03/2020,2017,06/30/2012 Influenza Vaccine Split 3+ Yrs PF IM 06/30/2013 Influenza Vaccine Tri Split 4+ Pf Im 07/26/2017 Social History Tobacco Use Types Packs/Day Years Used Date Smoking Tobacco: Every Day Cigarettes Passive Smoke Exposure: Current Smokeless Tobacco: Never Tobacco Cessation:Ready to Q uit: No; Counseling Given: Yes Alcohol Use Standard Drinks/Week Comments No 0 (1 standard drink = 0.6 oz pur e alcohol) Financial Resource Strain Answer Date R ecorded How hard is it for you to pa y for the very basics like food, housing, medical care, and heating? Not hard at all 05/04/2022 Food Insecurity Answer Date Recorded In the past 12 months, have you worried that your food would run out before you had money to buy more? Never true 05/04/2022 In the past 12 months, did y ou run out of food and didn't have money to buy more? Never true 05/04/2022 Transportation Needs Answer Date Record ed In the past 12 months, has l ack of transportation kept you from medical appointments or from getting medications? 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 Gender Identity Not on file Sexual Orientation Not on file Last Filed Vital Signs Vital Sign Reading Time Taken Comments Blood Pressure 130/80 07/30/2025 11:03 AM CDT Pulse 74 07/30/2025 11:03 AM CDT Temperature 36.3 C (97.3 F) 07/30/2025 11:03 AM CDT Respiratory Rate 18 07/30/2025 11:03 AM CDT Oxygen Saturation 99% 07/30/2025 11:03 AM CDT Inhaled Oxygen Concentration - - Weight 64.4 kg (142 lb) 07/30/2025 11:03 AM CDT Height 144.8 cm (4' 9 ) 07/30/2025 11:03 AM CDT Body Mass Index 30.73 07/30/2025 11:03 AM CDT Plan of Treatment Upcoming Encounters Date Type Department Care Team (Late st Contact Info) Description 02/11/2026 9:40 AM CDT Office Visit [facility] Medicine [address] [phone] Kendrick Dillon MD [address] [phone] Health Maintenance Due Date Last Done Comments FIT/ DNA Q 3 YEARS (AUTO ORDER) 1996 FIT/FOBT Q 1 YEAR (AUTO ORDER) 1996 FLEX SIG/CT COLONOGRAPHY Q 5 YEARS (AUTO ORDER) 1996 FIT-DNA Q 3 years 2023 FIT/FOBT Q 1 year 2023 Flex Sig/CT Colonography Q 5 years 2023 PAP SMEAR 11/10/2024 11/10/2021, 10/01, 10/24/2018, Additional history exists DIABETES ANNUAL FOOT EXAM 01/08/2025 01/09/2024 COVID-19 Vaccine (2024-10 6 season) 2025 02/07/2024, 07/27/2022, 12/27/2021, Additional history exists DIABETES HBA1C Q 6 MONTHS 10/16/20252024, 04/15/2025, 12/01/2024, Additional history exists DTAP/TDAP/TD VACCINES (3 - T d or Tdap) 11/17/2025 11/17/2015, 10/21/1996 LDL CHOLESTEROL ANNUAL 12/01/2025 , 12/27/2022, 01/16/2021, Additional history exists DIABETES MICROALBUMIN ANNUAL SCREEN 01/22/2026 01/22/2025, 03/06/2024 DIABETES ANNUAL RETINAL EXAM 03/19/2026, 03/13/2024, 01/01/2022, Additional history exists DIABETES: A1C (Auto Order) 04/15/202604/15, 04/15/2025, 12/01/2024, Additional history exists BREAST CANCER SCREENING 06/25/2026 06/25/20, 06/12/2024, 06/07/2023, Additional history exists Traditional Medicare (ACO) A nnual Wellness Visit 07/31/2026 07/30/2025, 07/24/2024, 07/19/2023, Additional history exists CERVICAL CANCER SCREENING 11/10/2026 HPV/Cotest (21-29) 11/10/2026 11/10/2021, 0 10/24/2018, 09/09/2015 HPV/Cotest (30-65) 11/10/2026 11/10/2021, 0 10/24/2018, 09/09/2015 COLORECTAL CANCER SCREENING (AUTO ORDER) 07/06/2031 07/06/2021 COLORECTAL SCREENING 07/06/2031 07/06/2021 Colorectal Cancer Screening (AUTO ORDER) 07/06/2031 Colorectal Cancer Screening 07/06/2031 HEPATITIS B VACCINES Completed 05/19/1998, 05/19/1998, 10/07/1997, Additional history exists INFLUENZA VACCINE Completed 06/30/2025, , 07/19/2023, Additional history exists Procedures Procedure Name Priority Date/Time Associated Diagnosis Comments XR CHEST PA AND LATERAL 2 VW Routine 07/30/2025 12:03 PM CDT Acute bronchitis, unspecified organism URINALYSIS W/REFLEX MICROSCOPIC Routine 07/05/2025 3:53 PM CDT Dysuria MAMMO SCREEN BILAT W OR WO CAD Routine 06/25/2025 9:37 AM CDT HEMOGLOBIN A1C Routine 04/15/2025 9:28 AM CDT Type 2 diabetes mellitus with diabetic polyneuropathy, without long-term current use of insulin ([facility]) HM DIABETES EYE EXAM Routine 03/19/2025 9:03 AM CDT MICROALBUMIN/CREATI NINE RATIO, RANDOM UR Routine 01/22/2025 5:46 PM CDT Type 2 diabetes mellitus with diabetic polyneuropathy, without long-term current use of insulin ([facility]) LIPID PANEL Routine 12/01/2024 2:29 PM SILK WORKER Mixed hyperlipidemia CERV/VAG CYTO SCREEN PAP RLFX HPV Routine 11/10/2021 11:53 AM SILK WORKER Well woman exam with routine gynecological exam from Last 3 Months or Most Recently Relevant to Health Maintenance Results * XR CHEST PA AND LATERAL 2 VW (07/30/2025 12:03 PM CDT) Anatomical Region Laterality Modality Chest Computed Radiogr aphy 07/30/2025 12:0 3 PM CDT Impressions 08/01/2025 9:41 PM SILK WORKER IMPRESSION: Please see below. Exam: XR CHEST PA AND LATERAL 2 VW Date/Time of Exam: 07/30/2025 12:03 PM Reason For Exam: See Diagnosis. Diagnosis: Acute bronchitis, unspecified organism. Findings: Comparison from 07/19/2023. The lungs are well-inflated. There is no pneumothorax. The lungs are clear. The cardiomediastinal silhouette and pulmonary vessels are unremarkable. No acute bony abnormality is appreciated. There is mild multilevel degenerative change of the thoracic spine. IMPRESSION: No acute radiographic abnormality. Narrative Procedure Note Amira Vicente MD - 08/01/2025 IMPRESSION: Please see below. Exam: XR CHEST PA AND LATERAL 2 VW Date/Time of Exam: 07/30/2025 12:03 PM Reason For Exam: See Diagnosis. Diagnosis: Acute bronchitis, unspecified organism. Findings: Comparison from 07/19/2023. The lungs are well-inflated. There is no pneumothorax. The lungs are clear. The cardiomediastinal silhouette and pulmonary vessels are unremarkable. No acute bony abnormality is appreciated. There is mild multilevel degenerative change of the thoracic spine. IMPRESSION: No acute radiographic abnormality. Kendrick Dillon MD DIAGNOSTIC IMAGING ORDERA BLES Final Result * (ABNORMAL) URINALYSIS WITH REFLEX MICROSCOPIC (07/05/2025 3:53 PM CDT) COLOR UA YELLOW YELLOW [facility] [place] CLARITY UA CLEAR CLEAR [facility] [place] SPECIFIC GRAVITY UA 1.012 1.001 - 1.035 [facility] [place] PH UA < OR = 5.0(A) 5.0 - 8.0 [facility] [place] GLUCOSE UA NEGATIVE NEGATIVE [facility] [place] BILIRUBIN UA NEGATIVE NEGATIVE [facility] [place] KETONES UA NEGATIVE NEGATIVE [facility] [place] BLOOD UA NEGATIVE NEGATIVE [facility] [place] PROTEIN UA NEGATIVE NEGATIVE [facility] [place] NITRITE UA NEGATIVE NEGATIVE [facility] [place] LEUKOCYTE ESTERASE UA NEGATIVE NEGATIVE [facility] [place] Comment: Test Performed at: [facility] [address] [address] [place] [address] Fermin Alfonso MD Urine URINE SPECIMEN OBTAINED BY CLEAN CATCH PROCEDURE / Unknown 07/05/2025 3:53 PM CDT 07/06/2025 4:46 AM CDT Kendrick Dillon MD URINE ORDERABLES Final Re sult [facility] [phone] [place] [address] [facility] [place] [address] * MAMMO SCREEN BILAT W OR WO CAD (06/25/2025 9:37 AM CDT) Anatomical Region Laterality Modality Breast Bilateral Mammography Kendrick Dillon MD MAMMO ORDERABLES Edited R esult - Final * HEMOGLOBIN A1C (04/15/2025 9:28 AM CDT) ABSTRACTED HGB A1C 6.8 % EXTERNAL LAB Blood 04/15/2025 9:28 AM CDT Kendrick Dillon MD CHEMISTRY ORDERABLES Mabel l Result EXTERNAL LAB * HM DIABETES EYE EXAM (03/19/2025 9:03 AM CDT) us Abstract Provider HEALTH MAINTENANCE Edited Resu lt - Final * MICROALBUMIN/CREATININE RATIO, RANDOM UR (01/22/2025 5:46 PM CDT) CREATININE, URINE 24 20 - 275 mg/dL [facility] ALBUMIN, URINE <0.2 See Note: mg/dL [facility] Comment: Reference Range: Reference Range Not established ALB/CREAT RATIO, URINE NOTE <30 mg/g creat [facility] Comment: NOTE: The urine albumin value is less than 0.2 mg/dL therefore we are unable to calculate excretion and/or creatinine ratio. The ADA defines abnormalities in albumin excretion as follows: Albuminuria Category Result (mg/g creatinine) Normal to Mildly increased <30 Moderately increased 30-299 Severely increased > OR = 300 The ADA recommends that at least two of three specimens collected within a 3-6 month period be abnormal before considering a patient to be within a diagnostic category. Test Performed at: [facility] [address] [place] [address] Fremin Alfonso MD Urine URINE SPECIMEN OBTAINED BY CLEAN CATCH PROCEDURE / Unknown 01/22/2025 5:46 PM CDT 01/24/2025 6:19 AM CDT Kendrick Dillon MD URINE ORDERABLES Final Re sult [facility] [phone] [facility] [address] [place] [address] * LIPID PANEL (12/01/2024 2:29 PM SILK WORKER) Blood 12/01/2024 2:29 PM SILK WORKER Kendrick Dillon MD CHEMISTRY ORDERABLES Mabel l Result [facility] [phone] * CERV/VAG CYTO SCREEN PAP RLFX HPV (11/10/2021 11:53 AM SILK WORKER) CLINICAL INFORMATION [facility] Comment:SCREENING LAST MENSTRUAL PERIOD [facility] Comment:[id number] PREV PAP: [facility] Comment:INFORMATION NOT PROV IDED PREV BX: [facility] Comment:INFORMATION NOT PROV IDED SOURCE [facility] Comment:ENDOCERVIX ADEQUACY: [facility] Comment: Satisfactory for evaluation. Endocervical/transformation zone component present. PAP INTERP [facility] Comment:Negative for intraep ithelial lesion or malignancy. COMMENT (PAP TEST) [facility] Comment: This Pap test has been evaluated with computer assisted technology. MAST MAKER: [facility] Comment: DANNI, CT(ASCP) CT screening location: [place] [address] [place] [address] [address] MAST MAKER: [facility] Comment: BES, CT(ASCP) CT screening location: [place] [address] [place] [address] SEE NOTE [facility] Comment: EXPLANATORY NOTE: The Pap is a screening test for cervical cancer. It is not a diagnostic test and is subject to false negative and false positive results. It is most reliable when a satisfactory sample, regularly obtained, is submitted with relevant clinical findings and history, and when the Pap result is evaluated along with historic and current clinical information. Test Performed at: [place] [address] [address] Fermin Alfonso Genital SWAB OF ENDOCERVIX / Unknown 11/10/2021 11:53 AM SILK WORKER 11/11/2021 5:31 AM SILK WORKER Lalitha MATHEWP PATHOLOGY/CYTOLOGY ORDERABLES Fi nal Result [facility] [address] [place] [address] from Last 3 Months or Most Recently Relevant to Health Maintenance Insurance [place] PART A AND B Advance Directives For more information, please contact: [phone] * Full Code (Latest Code Status on File) Date Activated Date Inactivated Comments 01/23/2022 8:17 AM 01/23/2022 12:20 PM * Full Code Date Activated Date Inactivated Comments 01/23/2022 6:16 AM 01/23/2022 8:17 AM * Full Code Date Activated Date Inactivated Comments 04/27/2021 12:16 PM 04/27/2021 5:32 PM * Full Code Date Activated Date Inactivated Comments 04/27/2021 11:17 AM 04/27/2021 12:15 PM Care Teams Instrumentation Technologist Relationship Specialty Start Date End Date Kendrick Dillon MD [address] [phone] PCP - General Family Practice 08/17/16
--- OUTSIDE RECORDS SUMMARY | 2025-09-23 16:52 | XMS_ITS | Encounter Summary ---
Author Organization [facility] Address 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 Gender Identity Not on file Sexual Orientation Not on file documented as of this encounter Plan of Treatment Upcoming Encounters Date Type Department Care Team (Late st Contact Info) Description 02/11/2026 9:40 AM CDT Office Visit [facility] Medicine [place] [address] [phone] Kendrick Dillon MD [address] [address] documented as of this encounter Visit Diagnoses Not on filedocumented in this encounter Additional Health Concerns Assessment Noted Time PHQ-9 Depression Total Score: 1 07/30/20 25 11:21 AM CDT documented as of this encounter Care Teams Electronic Device Monitor Relationship Specialty Start Date End Date Kendrick Dillon MD [address] [address] PCP - General Family Practice 08/17/16 documented as of this encounter
--- OUTSIDE RECORDS SUMMARY | 2025-09-23 16:52 | XMS_ITS | Encounter Summary ---
Author Organization [facility] Address [address] [place] [address] Care Team Providers Care Pricing Associate Name Role Phone Kendrick Dillon MD Primary Care Provider [phone] Reason for Visit * Reason Comments Med Refill Encounter Details Date Type Department Care Team ([facility] Contact Info) Description 09/21/2025 Refill [facility] Rheumatology- [facility] [address] [place] [address] Dea Trujillo MD [address] [facility] [address] [place] [address] Inflammatory arthritis Social History Tobacco Use Types Packs/Day Years [...] on file 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 Gender Identity Not on file Sexual Orientation Not on file documented as of this encounter Miscellaneous Notes * Telephone Encounter - Harriett Paz - 09/22/2025 9:19 AM CST Last ov: 11/20/24 (video visit) Last eye exam: 03/19/25 SILVERMAN documented in this encounter Plan of Treatment Upcoming Encounters Date Type Department Care Team (Late st Contact Info) Description 02/11/2026 9:40 AM CDT Office Visit [facility] Medicine [place] [address] [phone] Kendrick Dillon MD [address] [phone] documented as of this encounter Visit Diagnoses Diagnosis Inflammatory arthritis Unspecified inflammatory polyarthropathy documented in this encounter Additional Health Concerns Assessment Noted Time PHQ-9 Depression Total Score: 1 07/30/20 25 11:21 AM CDT documented as of this encounter Care Teams Pricing Associate Relationship Specialty Start Date End Date Kendrick Dillon MD [address] [address] PCP - General Family Practice 08/17/16 documented as of this encounter
--- OUTSIDE RECORDS SUMMARY | 2025-09-23 16:52 | XMS_ITS | Encounter Summary ---
Author Organization [facility] Address 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 Gender Identity Not on file Sexual Orientation Not on file documented as of this encounter Plan of Treatment Upcoming Encounters Date Type Department Care Team (Late st Contact Info) Description 02/11/2026 9:40 AM CDT Office Visit [facility] Medicine [place] [address] [place] [phone] Kendrick Dillon MD [address] [phone] documented as of this encounter Visit Diagnoses Not on filedocumented in this encounter Additional Health Concerns Assessment Noted Time PHQ-9 Depression Total Score: 1 07/30/20 25 11:21 AM CDT documented as of this encounter Care Teams Supervisor Gelatin Plant Relationship Specialty Start Date End Date Kendrick Dillon MD [address] [place] [phone] PCP - General Family Practice 08/17/16 documented as of this encounter
--- OUTSIDE RECORDS SUMMARY | 2025-09-23 16:52 | XMS_ITS | Encounter Summary ---
Author Organization [facility] Address [address] [place] [address] Care Team Providers Care Mechanical Apprentice Name Role Phone Kendrick Dillon MD Primary Care Provider [phone] Encounter Details Date Type Department Care Team (Latest Contact Info) Description 05/13/2008 Outpatient Historical [facility] Family Medicine [place] [address] [facility] [address] [place] [address] Carlos Sharpe MD NO ADDRESS ON FILE Routine Gynecological Examination Social History Tobacco Use Types Packs/Day Years Used Date Smoking Tobacco: Never Assessed Comments Unknown Sex and Gender Information Value Date Recorded Sex Assigned at Not on file 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 Anatomic Pathology Dept [address] [place] [address] Patient: CELIA ZUNIGA Accn No: [id number] Collected: 05/13/2008 3:08:00 PM CYTOLOGY CERTIFIED HAND THERAPIST FINAL REPORT - - UROLOGIST PAP History Specimen Source: Endocervical/Cervic al LMP: None Provided Last Pap Date: None Provided Specimen Adequacy Satisfactory for interpretation. The smear lacks endocervical or metaplastic cells. Diagnosis NEGATIVE FOR INTRAEPITHELIAL LESION OR MALIGNANCY. Fungal organisms morphologically consistent with [place]. Meatcutter 05/17/08 Completed by: WALTER MOODY (Electronically signed by) 05/17/08 Comment Repeat Pap smear within 6-12 months. Important Info About Pap Smears HPV Testing off the Thin Prep vial can be done as a means of further evaluating a Thin Prep Report. For information about ordering the HPV test, phone Cytology at . Treatment or follow-up recommendations (if any) that are considered within this report are based upon general recommendations as contained in 2001 Consensus Guidelines For Cervical Cytological Abnormalities [facility]: January 21, 2002, and are provided as a general guideline rather than as a specific recommendation. Final decisions about the most appropriate treatment and follow-up should be made on an individualized basis by the treating physician in consultation with his/her patient. INTERFACE SYSTEM 05/13/2008 3:08 PM CDT Carlos Sharpe MD PATHOLOGY/CYTOLOGY ORDERAB LES Final Result INTERFACE SYSTEM Refer to clinic/hospital department documented in this encounter Visit Diagnoses Diagnosis Routine gynecological examination documented in this encounter Care Teams Mechanical Apprentice Relationship Specialty Start Date End Date Kendrick Dillon MD [address] [phone] PCP - General Family Practice 08/17/16 documented as of this encounter
[2025-09-23 17:57] VITALS: BP 130/75; PULSE 74; RESP 15; O2SAT 98
== END 2025-09-23 17:58 | disposition home or self-care (01) ==
PROVIDERS: Emergency Provider Emergency Medicine; PCP Family Medicine
DX: S90.31XA Contusion of right foot, initial encounter (principal); Z79.84 Long term (current) use of oral hypoglycemic drugs; Z72.0 Tobacco use; E11.9 Type 2 diabetes mellitus without complications; W01.0XXA Fall on same level from slipping, tripping and stumbling without subsequent striking against object, initial encounter
CPT/HCPCS: 73630; 99283